=== PATIENT | female | born 1995 | race Caucasian/White ===

== ENCOUNTER 2017-05-30 16:56 | Emergency (ER) | payer MEDICAID, SELFPAY ==
[2017-05-30 18:55] VITALS: BP 144/98; PULSE 115; RESP 20; TEMP 37.3; O2SAT 99; BMI 45.6
--- NOTE | 2017-05-30 19:07 | HMH.EDUTC ---
[facility] Disposition Clinical Impression: Upper respiratory infection Qualifiers: URI type: unspecified URI Qualified Code(s): J06.9 - Acute upper respiratory infection, unspecified Disposition: Home, Self-Care Condition on Discharge: Good Instructions: DI for Cough -- Adult, DI for Fever (Symptom) -- Adult Additional Instructions: * Monitor Temp. Tylenol and/or Ibuprofen as needed. ER if fever is no less than 101 despite alternating Tylenol and Ibuprofen * Encourage fluids, water, Gatorade, powerade, pedialyte if /toddler/or child * Warm salt water gargles for throat irritation *Warm fluids *Sore throat lozenges *Sleep elevated *humidifier or vaporizer Lots of rest Increase fluids, water, Gatorade, powerade Follow up IMMEDIATELY for new or worsening of symptoms OR no noticeable improvement over the next 48-72 hours. 911 immediately for any life threatening symptoms such as chest pain or difficulty breathing Prescriptions: Azithromycin [Z-[place]rington 250mg Tab] 250 mg PO UD DOSE PK #6 tab Fluticasone Propionate [Flonase 50mcg nasal spray 16gm] 2 spr NS DAILY #1 bottle predniSONE [Prednisone 20mg Tab] 20 mg PO BID #10 tab Promethazine/Dextromethorphan [Promethazine-Dm Syrup] 5 ml PO Q4H PRN #200 syrup PRN Reason: Cough Referrals: Issac Moura [Primary Care Provider] - Time of Disposition: 19:20 Medical Decision Making - Medical Records Medical records reviewed: Yes: I reviewed the patient's medical records. Vital Signs: 05/30/17 18:55 Temperature 99.1 F Temperature Source Temporal Artery Scan Pulse Rate [Right Brachial] 115 H Respiratory Rate 20 Blood Pressure [Right Arm] 144/98 Blood Pressure Mean [Right Arm] 113 Blood Pressure Source [Right Arm] Automatic Cuff Blood Pressure Position [Right Arm] Sitting 02 Sat by Pulse Oximetry 99 Oxygen Delivery Method Room Air - Kumar Inquiry Pt receiving controlled substance: No Kumar was queried for this patient: No [facility] HPI - General Stated complaint: Cough Mode of Arrival: Ambulatory Source of Information: Patient Limitations: No Limitations Description of Symptoms (Recalled from Triage Doc. by RN): C/O COUGH, FEVER, CHILLS HEENT Symptoms (Recalled from RN notes): No Resp Symptoms (Recalled from RN notes): Yes (COUGH) Skin Symptoms (Recalled from RN notes): No MS Symptoms (Recalled from RN notes): No Functional Status (Recalled from RN notes): N/A - History of Present Illness Provider Complaint: Patient state that she has been having sinus pain and pressure along with cough and fever State that she has continued to get worse over the last couple of days State that her cough has continued to get worse State that she was worried that she may have the flu so she wanted to get checked - Related Data Previous Rx's Medication Instructions Recorded Azithromycin [Z-Carrington 250mg Tab] 250 mg PO UD DOSE PK #6 tab 05/30/17 Fluticasone Propionate [Flonase 2 spr NS DAILY #1 bottle 05/30/17 50mcg nasal spray 16gm] Promethazine/Dextromethorphan 5 ml PO Q4H PRN #200 syrup 05/30/17 [Promethazine-Dm Syrup] predniSONE [Prednisone 20mg 20 mg PO BID #10 tab 05/30/17 Tab] Allergies Allergy/AdvReac Type Severity Reaction Status Date / Time No Known Allergies Allergy Verified 05/30/17 18:58 - Worker's Comp Is this a Worker's Comp case?: No [facility] History I have reviewed the patient's past medical history: Yes Medical History: Denies:: Cancer, Diabetes Mellitus Type 1, Diabetes Mellitus Type 2, MRSA Amputation: No Fractures: No - *Social History Smoking Status: Current every day smoker Tobacco Type: cigarettes Alcohol Intake: never - Psychiatric History Expresses thoughts of harming self/others: None Suicide Plan Description: No Plan ROS Obtained: Yes All systems reviewed & no additional complaints - Constitutional Constitutional: Reports fever(s) - ENT Ears, Nose, Mouth, and Throat: Reports sinus pain - Respiratory Respirato
[2017-05-30 19:09] LABS: UTC Influenza A Antigen Negative (Negative); UTC Influenza B Antigen Negative (Negative)
--- NOTE | 2017-05-30 19:13 | ED_ITS ---
[facility] [place] Clinical Impression: Upper respiratory infection Qualifiers: URI type: unspecified URI Qualified Code(s): J06.9 - Acute upper respiratory infection, unspecified Disposition: Home, Self-Care Condition on Discharge: Good Instructions: DI for Cough -- Adult, DI for Fever (Symptom) -- Adult Additional Instructions: * Monitor Temp. Tylenol and/or Ibuprofen as needed. ER if fever is no less than 101 despite alternating Tylenol and Ibuprofen * Encourage fluids, water, Gatorade, powerade, pedialyte if /toddler/or child * Warm salt water gargles for throat irritation *Warm fluids *Sore throat lozenges *Sleep elevated *humidifier or vaporizer Lots of rest Increase fluids, water, Gatorade, powerade Follow up IMMEDIATELY for new or worsening of symptoms OR no noticeable improvement over the next 48-72 hours. 911 immediately for any life threatening symptoms such as chest pain or difficulty breathing Prescriptions: Azithromycin [Z-Carrington 250mg Tab] 250 mg PO UD DOSE PK #6 tab Fluticasone Propionate [Flonase 50mcg nasal spray 16gm] 2 spr NS DAILY #1 bottle predniSONE [Prednisone 20mg Tab] 20 mg PO BID #10 tab Promethazine/Dextromethorphan [Promethazine-Dm Syrup] 5 ml PO Q4H PRN #200 syrup PRN Reason: Cough Referrals: Isasc Moura [Primary Care Provider] - Time of Disposition: 19:20 Medical Decision Making - Medical Records Medical records reviewed: Yes: I reviewed the patient's medical records. Vital Signs: 05/30/17 18:55 Temperature 99.1 F Temperature Source Temporal Artery Scan Pulse Rate [Right Brachial] 115 H Respiratory Rate 20 Blood Pressure [Right Arm] 144/98 Blood Pressure Mean [Right Arm] 113 Blood Pressure Source [Right Arm] Automatic Cuff Blood Pressure Position [Right Arm] Sitting 02 Sat by Pulse Oximetry 99 Oxygen Delivery Method Room Air - Kumar Inquiry Pt receiving controlled substance: No Kumar was queried for this patient: No [facility] [place] - General Stated complaint: Cough Mode of Arrival: Ambulatory Source of Information: Patient Limitations: No Limitations Description of Symptoms (Recalled from Triage Doc. by RN): C/O COUGH, FEVER, CHILLS HEENT Symptoms (Recalled from RN notes): No Resp Symptoms (Recalled from RN notes): Yes (COUGH) Skin Symptoms (Recalled from RN notes): No MS Symptoms (Recalled from RN notes): No Functional Status (Recalled from RN notes): N/A - History of Present Illness Provider Complaint: Patient state that she has been having sinus pain and pressure along with cough and fever State that she has continued to get worse over the last couple of days State that her cough has continued to get worse State that she was worried that she may have the flu so she wanted to get checked - Related Data Previous Rx's Medication Instructions Recorded Azithromycin [Z-[place] 250mg Tab] 250 mg PO UD DOSE PK #6 tab 05/30/17 Fluticasone Propionate [Flonase 2 spr NS DAILY #1 bottle 05/30/17 50mcg nasal spray 16gm] Promethazine/Dextromethorphan 5 ml PO Q4H PRN #200 syrup 05/30/17 [Promethazine-Dm Syrup] predniSONE [Prednisone 20mg 20 mg PO BID #10 tab 05/30/17 Tab] Allergies Allergy/AdvReac Type Severity Reaction Status Date / Time No Known Allergies Allergy Verified 05/30/17 18:58 - Worker's Comp Is this a Worker's Comp case?: No [facility] His
== END 2017-05-30 19:29 | disposition home or self-care (01) ==
PROVIDERS: Emergency Provider Nurse Practitioner; Family Provider Family Medicine; PCP Family Medicine
DX: J06.9 Acute upper respiratory infection, unspecified (principal); F17.210 Nicotine dependence, cigarettes, uncomplicated
CPT/HCPCS: 87804; 99202

== ENCOUNTER 2017-07-04 17:22 | Emergency (ER) | payer MEDICAID, SELFPAY ==
[2017-07-04 17:32] VITALS: BP 136/78; PULSE 76; RESP 20; TEMP 36.8; O2SAT 98; BMI 45.6
--- NOTE | 2017-07-04 17:43 | HMH.EDUTC ---
[facility] [place] Disposition Clinical Impression: Skin problem Disposition: Home, Self-Care Condition on Discharge: Good Instructions: Mupirocin, Cephalexin Additional Instructions: Take medication as prescribed FOllow up with family doctor if symptoms worsen or persist Go straight to ER if you noticed redness, streaks began to run a fever or other life threatening events REturn if needed Prescriptions: cephALEXin [Keflex 500mg Cap] 500 mg PO QID #40 cap Mupirocin [Bactroban 2% Ointment 22gm tube] 1 applicatio TP BID #1 tube Referrals: Issac Moura [Primary Care Provider] - Medical Decision Making - Medical Records Medical records reviewed: Yes: I reviewed the patient's medical records. Vital Signs: 07/04/17 17:32 Temperature 98.2 F Temperature Source Temporal Artery Scan Pulse Rate [Right] 76 Respiratory Rate 20 Blood Pressure [Right Arm] 136/78 Blood Pressure Mean [Right Arm] 97 Blood Pressure Source [Right Arm] Automatic Cuff Blood Pressure Position [Right Arm] Sitting 02 Sat by Pulse Oximetry 98 Oxygen Delivery Method Room Air - Kumar Inquiry Pt receiving controlled substance: No Kumar was queried for this patient: No [facility] [place] HPI - General Stated complaint: Knot on right breast Mode of Arrival: Ambulatory Source of Information: Patient Limitations: No Limitations Description of Symptoms (Recalled from Triage Doc. by RN): STATES KNOT ON RIGHT BREAST HEENT Symptoms (Recalled from RN notes): No Resp Symptoms (Recalled from RN notes): No Skin Symptoms (Recalled from RN notes): Yes MS Symptoms (Recalled from RN notes): No Functional Status (Recalled from RN notes): N - History of Present Illness Provider Complaint: Patient state that she noticed a small raised knot like area on her right breast that later popped states that now she has a blister like area on the breast and still having some redness and tenderness in the area States that she got worried that she may have an infection in the breast so she came in to get checked out - Related Data Previous Rx's Medication Instructions Recorded Azithromycin [Z-Carrington 250mg Tab] 250 mg PO UD DOSE PK #6 tab 05/30/17 Fluticasone Propionate [Flonase 2 spr NS DAILY #1 bottle 05/30/17 50mcg nasal spray 16gm] Promethazine/Dextromethorphan 5 ml PO Q4H PRN #200 syrup 05/30/17 [Promethazine-Dm Syrup] predniSONE [Prednisone 20mg 20 mg PO BID #10 tab 05/30/17 Tab] Mupirocin [Bactroban 2% Ointment 1 applicatio TP BID #1 tube 07/04/17 22gm tube] cephALEXin [Keflex 500mg Cap] 500 mg PO QID #40 cap 07/04/17 Allergies Allergy/AdvReac Type Severity Reaction Status Date / Time No Known Allergies Allergy Verified 05/30/17 18:58 - Worker's Comp Is this a Worker's Comp case?: No H History I have reviewed the patient's past medical history: Yes Medical History: Denies:: Cancer, Diabetes Mellitus Type 1, Diabetes Mellitus Type 2, MRSA Amputation: No Fractures: No - *Social History Smoking Status: Current every day smoker Tobacco Type: cigarettes Alcohol Intake: never - Psychiatric History Expresses thoughts of harming self/others: None Suicide Plan Description: No Plan ROS Obtained: Yes All systems reviewed & no additional complaints - Integumentary/Breasts Skin/Breast: Reports redness, Reports boil, Reports sores Physical Exam - General General appearance: alert, in no apparent distress - ENT ENT exam: Present: normal exam, normal oropharynx, mucous membranes moist, TM's normal bilaterally, normal external ear exam - Chest Chest inspection: Present: other - Expanded Chest Exam Breast: right: erythema, tenderness, other (small quarter sized area that patient states started out like a pimple like area and popped now leaving a red irritated area on right breast, no streaks no warmth at this time) - Respiratory Respiratory exam: Present: normal lung sounds bilaterally. Absent: respiratory distress - Cardiovasc
--- NOTE | 2017-07-04 17:56 | ED_ITS ---
[facility] [place] Clinical Impression: Skin problem Disposition: Home, Self-Care Condition on Discharge: Good Instructions: Mupirocin, Cephalexin Additional Instructions: Take medication as prescribed FOllow up with family doctor if symptoms worsen or persist Go straight to ER if you noticed redness, streaks began to run a fever or other life threatening events REturn if needed Prescriptions: cephALEXin [Keflex 500mg Cap] 500 mg PO QID #40 cap Mupirocin [Bactroban 2% Ointment 22gm tube] 1 applicatio TP BID #1 tube Referrals: Issac Moura [Primary Care Provider] - Medical Decision Making - Medical Records Medical records reviewed: Yes: I reviewed the patient's medical records. Vital Signs: 07/04/17 17:32 Temperature 98.2 F Temperature Source Temporal Artery Scan Pulse Rate [Right] 76 Respiratory Rate 20 Blood Pressure [Right Arm] 136/78 Blood Pressure Mean [Right Arm] 97 Blood Pressure Source [Right Arm] Automatic Cuff Blood Pressure Position [Right Arm] Sitting 02 Sat by Pulse Oximetry 98 Oxygen Delivery Method Room Air - Kumar Inquiry Pt receiving controlled substance: No Kumar was queried for this patient: No [facility] [place] - General Stated complaint: Knot on right breast Mode of Arrival: Ambulatory Source of Information: Patient Limitations: No Limitations Description of Symptoms (Recalled from Triage Doc. by RN): STATES KNOT ON RIGHT BREAST HEENT Symptoms (Recalled from RN notes): No Resp Symptoms (Recalled from RN notes): No Skin Symptoms (Recalled from RN notes): Yes MS Symptoms (Recalled from RN notes): No Functional Status (Recalled from RN notes): N - History of Present Illness Provider Complaint: Patient state that she noticed a small raised knot like area on her right breast that later popped states that now she has a blister like area on the breast and still having some redness and tenderness in the area States that she got worried that she may have an infection in the breast so she came in to get checked out - Related Data Previous Rx's Medication Instructions Recorded Azithromycin [Z-[place] 250mg Tab] 250 mg PO UD DOSE PK #6 tab 05/30/17 Fluticasone Propionate [Flonase 2 spr NS DAILY #1 bottle 05/30/17 50mcg nasal spray 16gm] Promethazine/Dextromethorphan 5 ml PO Q4H PRN #200 syrup 05/30/17 [Promethazine-Dm Syrup] predniSONE [Prednisone 20mg 20 mg PO BID #10 tab 05/30/17 Tab] Mupirocin [Bactroban 2% Ointment 1 applicatio TP BID #1 tube 07/04/17 22gm tube] cephALEXin [Keflex 500mg Cap] 500 mg PO QID #40 cap 07/04/17 Allergies Allergy/AdvReac Type Severity Reaction Status Date / Time No Known Allergies Allergy Verified 05/30/17 18:58 - Worker's Comp Is this a Worker's Comp case?: No [facility] History I have reviewed the patient's past medical history: Yes Medical History: Denies:: Cancer, Diabetes Mellitus Type 1, Diabetes Mellitus Type 2, MRSA Amputation: No Fractures: No - *Social History Smoking Status: Current every day smoker Tobacco Type: cigarettes Alcohol Intake: never - Psychiatric History Expresses thoughts of harming self/others: None Suicide Plan Description: No Plan ROS Obtained: Yes All systems reviewed & no additional complaints - Integumentary/Breasts Skin/Breast: Reports redness, Re
[2017-07-04 18:21] VITALS: BP 130/70; PULSE 78; RESP 20; TEMP 36.6
== END 2017-07-04 18:22 | disposition home or self-care (01) ==
PROVIDERS: Emergency Provider Nurse Practitioner; Family Provider Family Medicine; PCP Family Medicine
DX: N63.10 Unspecified lump in the right breast, unspecified quadrant
CPT/HCPCS: 99202

== ENCOUNTER 2017-08-05 21:11 | Emergency (ER) | payer MEDICAID, SELFPAY ==
[2017-08-05 21:14] VITALS: BP 124/78; PULSE 113; RESP 18; TEMP 36.9; O2SAT 95; BMI 44.8
--- NOTE | 2017-08-05 21:27 | CT_ITS ---
CT abdomen pelvis wo con COMPARISON: CT scan abdomen pelvis 05/04/2016 HISTORY: Epigastric pain TECHNIQUE: Multiple axial scans obtained from hemidiaphragms the pelvic floor and were performed without IV or oral contrast. Sagittal and coronal reformats were evaluated as well. FINDINGS: The lower lung prater are clear. The liver spleen and pancreas appear grossly normal. The stomach is distended with ingested food particles. There has been a previous cholecystectomy. The adrenal glands are normal. The kidneys are normal in size and there are no calculi and is no obstructive uropathy. Small bowel is normal, there has been a previous appendectomy. There is moderate stool in ascending and transverse colon. There is very minimal questionable pericolonic fat stranding in the descending and sigmoid colon and a few scattered diverticuli of the sigmoid colon. There is no evidence for diverticulitis. Uterus and ovaries appear normal. Urinary bladder is partially decompressed. Is no free fluid in pelvis. IMPRESSION: Question very minimal or early colitis involving the descending colon, mild diverticulosis of sigmoid colon without diverticulitis, I basically agree with the [facility] report
[2017-08-05 21:44] LABS: Basophils # 0.1 K/mm3 (0-0.2); Basophils % 0.6 % (0.1-2.0); Eosinophils # 0.8 K/mm3 (0.0-0.4); Eosinophils % 5.6 % (0.1-12.0); Hematocrit 44.6 % (37.0-47.0); Hemoglobin 14.9 g/dL (12.2-16.2); Lymphocytes # 4.8 K/mm3 (0.7-4.5); Lymphocytes % 35.1 K/mm3 (10-50); Mean Corpuscular HGB Conc 33.4 g/dL (31.8-35.4); Mean Corpuscular Hemoglobin 27.9 pg (27.0-31.2); Mean Corpuscular Volume 83.6 fl (81-99); Mean Platelet Volume 7.2 fl (7.4-10.4); Monocytes # 0.7 K/mm3 (0.1-1.0); Monocytes % 5.3 % (1.7-9.3); Neutrophils # 7.2 K/mm3 (1.8-7.8); Neutrophils % 53.3 % (37.0-80.0); Platelet Count 444 K/mm3 (142-424); Red Blood Count 5.33 M/mm3 (4.20-5.40); Red Cell Distribution Width 12.5 % (11.5-17.5); White Blood Count 13.6 K/mm3 (4.8-10.8)
[2017-08-05 21:59] LABS: Alanine Aminotransferase 27 U/L (12-78); Albumin Level 3.5 gm/dL (3.4-5.0); Albumin/Globulin Ratio 0.9 (1.1-1.8); Alkaline Phosphatase 86 U/L (46-116); Amylase 51 U/L (25-125); Anion Gap 12.9 mEq/L (5-15); Aspartate Amino Transferase 15 U/L (15-37); Bilirubin,Total 0.1 mg/dL (0.2-1.0); Blood Urea Nitrogen 11 mg/dL (7-18); Calcium 9.1 mg/dL (8.5-10.1); Carbon Dioxide 28 mmol/L (21.0-32.0); Chloride 105 mmol/L (98-107); Creatinine Clearance Estimated 86 mL/min (0-300); Creatinine,Serum 1.04 mg/dL (0.55-1.02); Estimated Glomerular Filt Rate 67 ml/min (>60); GFR (African American) 81 ML/MIN (>60); Globulin 4.1 gm/dl (1.3-3.2); Glucose 95 mg/dL (74-106); Lipase 226 u/L (73-393); Potassium 3.9 mmoL/L (3.5-5.1); Sodium 142 mmol/L (136-145); Total Protein,Serum 7.6 gm/dL (6.4-8.2)
--- NOTE | 2017-08-05 22:11 | HMH.EDABDPAI ---
ED Disposition Clinical Impression: Colitis Disposition: Home, Self-Care Condition on Discharge: Good Instructions: DI for Colitis Additional Instructions: Please take the 2 antibiotics prescribed as directed, follow-up with Dr. Todd Atkins within 2-4 weeks for additional outpatient workup, to include a colonoscopy. Prescriptions: Ciprofloxacin HCl [Ciprofloxacin 500mg Tab] 500 mg PO BID #20 tab metroNIDAZOLE [Flagyl] 500 mg PO TID #30 tab Referrals: Issac Moura [Primary Care Provider] - Todd Atkins MD [Staff Physician] - Time of Disposition: 00:14 - Critical Care Critical Care Time: No Attestation: On 08/05/17, the high probability of a clinically significant, sudden or life threatening deterioration of the following system(s) required my full and direct attention, intervention and personal management. The time I documented below is in addition to time spent performing reported procedures but includes the following listed in this critical care notation. Medical Decision Making - Medical Records Medical records reviewed: Yes: I reviewed the patient's medical records. - Kumar Inquiry Pt receiving controlled substance: No Vital Signs: 08/05/17 21:14 08/05/17 23:38 08/06/17 00:38 Temperature 98.5 F 98.7 F Temperature Source Oral Oral Pulse Rate 90 Pulse Rate [Right Brachial] 113 H 74 Respiratory Rate 18 14 14 Blood Pressure 142/86 Blood Pressure [Right Arm] 124/78 92/54 Blood Pressure Mean [Right Arm] 93 66 Blood Pressure Source [Right Arm] Automatic Cuff Automatic Cuff Blood Pressure Position [Right Arm] Sitting Sitting 02 Sat by Pulse Oximetry 95 98 Oxygen Delivery Method Nasal Cannula Room Air Room Air - Lab Data Lab results reviewed: Yes: I reviewed the patient's lab results. Lab Results 08/05/17 21:30: WBC 13.6 H, RBC 5.33, Hgb 14.9, Hct 44.6, MCV 83.6, MCH 27.9, MCHC 33.4, RDW 12.5, Plt Count 444 H, MPV 7.2 L, Neut % (Auto) 53.3, Lymph % (Auto) 35.1, [place] % (Auto) 5.3, Eos % (Auto) 5.6, Baso % (Auto) 0.6, Neut # (Auto) 7.2, Lymph # (Auto) 4.8 H, [place] # (Auto) 0.7, Eos # (Auto) 0.8 H, Baso # (Auto) 0.1 08/05/17 21:30: Sodium 142, Potassium 3.9, Chloride 105, Carbon Dioxide 28, Anion Gap 12.9, BUN 11, Creatinine 1.04 H, Estimated Creat Clear 86, Estimated GFR 67, Est GFR ( Amer) 81, Glucose 95, Calcium 9.1, Total Bilirubin 0.1 L, AST 15, ALT 27, Alkaline Phosphatase 86, Total Protein 7.6, Albumin 3.5, Globulin 4.1 H, Albumin/Globulin Ratio 0.9 L, Amylase 51, Lipase 226 08/05/17 22:15: Urine Color Yellow, Urine Appearance Sl cloudy, Urine pH 6.5, Ur Specific [place] 1.025, Urine Protein Negative, Urine Glucose (UA) Negative, Urine Ketones Trace, Urine Blood Negative, Urine Nitrate Negative, Urine Bilirubin Negative, Urine Urobilinogen 0.2, Ur Leukocyte Esterase Negative, Ur Squamous Epith Cells 10-20, Amorphous Sediment 3+, Urine Mucus 1+ 08/05/17 22:15: Urine HCG, Qual Negative Result diagrams: 08/05/17 21:30 08/05/17 21:30 Orders (Tests/Meds): ED MEDICATIONS Discontinued Medications Generic Name Dose Route Start Last Admin Trade Name Yamila PRN Reason Stop Dose Admin Sodium Chloride 1,000 mls @ 999 mls/hr 08/05/17 21:45 08/05/17 21:41 Sod Chlor 0.9% 1000ml Bag IV 08/05/17 22:45 999 mls/hr .Q1H1M QUINN Administration Ketorolac Tromethamine 30 mg 08/05/17 21:26 08/05/17 21:39 Toradol 30mg/Ml Vial IV 08/05/17 21:27 30 mg ONCE ONE Administration Levofloxacin 750 mg 08/06/17 00:21 08/06/17 00:29 Levaquin 750mg Tablet PO 08/06/17 00:22 750 mg ONCE ONE Administration Protocol Metronidazole 500 mg 08/06/17 00:21 08/06/17 00:29 Metronidazole 500mg Tablet PO 08/06/17 00:22 500 mg ONCE ONE Administration Protocol Ondansetron HCl 4 mg 08/05/17 21:26 08/05/17 21:39 Zofran 4mg/2ml Vial IV 08/05/17 21:27 4 mg ONCE ONE Administration ORDERS Category Date Time Status CT abdomen pelvis wo con Stat
[2017-08-05 22:18] LABS: Microscopic, Urine URINE MICROSCOPIC (MICROSCOPIC)
--- NOTE | 2017-08-05 22:22 | ED_ITS ---
ED Disposition Clinical Impression: Colitis Disposition: Home, Self-Care Condition on Discharge: Good Instructions: DI for Colitis Additional Instructions: Please take the 2 antibiotics prescribed as directed, follow-up with Dr. Todd Atkins within 2-4 weeks for additional outpatient workup, to include a colonoscopy. Prescriptions: Ciprofloxacin HCl [Ciprofloxacin 500mg Tab] 500 mg PO BID #20 tab metroNIDAZOLE [Flagyl] 500 mg PO TID #30 tab Referrals: Issac Moura [Primary Care Provider] - Todd Atkins MD [Staff Physician] - Time of Disposition: 00:14 - Critical Care Critical Care Time: No Attestation: On 08/05/17, the high probability of a clinically significant, sudden or life threatening deterioration of the following system(s) required my full and direct attention, intervention and personal management. The time I documented below is in addition to time spent performing reported procedures but includes the following listed in this critical care notation. Medical Decision Making - Medical Records Medical records reviewed: Yes: I reviewed the patient's medical records. - Kumar Inquiry Pt receiving controlled substance: No Vital Signs: 08/05/17 21:14 08/05/17 23:38 08/06/17 00:38 Temperature 98.5 F 98.7 F Temperature Source Oral Oral Pulse Rate 90 Pulse Rate [Right Brachial] 113 H 74 Respiratory Rate 18 14 14 Blood Pressure 142/86 Blood Pressure [Right Arm] 124/78 92/54 Blood Pressure Mean [Right Arm] 93 66 Blood Pressure Source [Right Arm] Automatic Cuff Automatic Cuff Blood Pressure Position [Right Arm] Sitting Sitting 02 Sat by Pulse Oximetry 95 98 Oxygen Delivery Method Nasal Cannula Room Air Room Air - Lab Data Lab results reviewed: Yes: I reviewed the patient's lab results. Lab Results 08/05/17 21:30: WBC 13.6 H, RBC 5.33, Hgb 14.9, Hct 44.6, MCV 83.6, MCH 27.9, MCHC 33.4, RDW 12.5, Plt Count 444 H, MPV 7.2 L, Neut % (Auto) 53.3, Lymph % ( Auto) 35.1, [place] % (Auto) 5.3, Eos % (Auto) 5.6, Baso % (Auto) 0.6, Neut # (Auto ) 7.2, Lymph # (Auto) 4.8 H, [place] # (Auto) 0.7, Eos # (Auto) 0.8 H, Baso # (Auto ) 0.1 08/05/17 21:30: Sodium 142, Potassium 3.9, Chloride 105, Carbon Dioxide 28, Anion Gap 12.9, BUN 11, Creatinine 1.04 H, Estimated Creat Clear 86, Estimated GFR 67, Est GFR ( Amer) 81, Glucose 95, Calcium 9.1, Total Bilirubin 0.1 L, AST 15, ALT 27, Alkaline Phosphatase 86, Total Protein 7.6, Albumin 3.5, Globulin 4.1 H, Albumin/Globulin Ratio 0.9 L, Amylase 51, Lipase 226 08/05/17 22:15: Urine Color Yellow, Urine Appearance Sl cloudy, Urine pH 6.5, Ur Specific [place] 1.025, Urine Protein Negative, Urine Glucose (UA) Negative, Urine Ketones Trace, Urine Blood Negative, Urine Nitrate Negative, Urine Bilirubin Negative, Urine Urobilinogen 0.2, Ur Leukocyte Esterase Negative, Ur Squamous Epith Cells 10-20, Amorphous Sediment 3+, Urine Mucus 1+ 08/05/17 22:15: Urine HCG, Qual Negative Result diagrams: 08/05/17 21:30 08/05/17 21:30 Orders (Tests/Meds): ED MEDICATIONS Discontinued Medications Generic Name Dose Route Start Last Admin Trade Name Freq PRN Reason Stop Dose Admin Sodium Chloride 1,000 mls @ 999 mls/hr 08/05/17 21:45 08/05/17 21:41 Sod Chlor 0.9% 1000ml Bag IV 08/05/17 22:45 999 mls/hr .Q1H1M QUINN Administration Ketorolac Tromethamine 30 mg 08/05/17 21:26 08/05/17 21:39 Toradol 30mg/Ml Vial IV
[2017-08-05 22:26] LABS: Appearance,Urine SL CLOUDY (Clear); Bilirubin,Urine Negative (Negative); Blood, Urine Negative (Negative); Color,Urine YELLOW (Yellow); Glucose,Urine (UA) Negative (Negative); Ketones,Urine TRACE (Negative); Leukocyte Esterase,Urine Negative (Negative); Nitrate,Urine Negative (Negative); PH,Urine 6.5 (5.0-8.5); Protein,Urine Negative (Negative); Specific Gravity, Urine 1.025 (1.005-1.030); Urobilinogen,Urine 0.2 EU/dl (0.2)
[2017-08-05 22:27] LABS: Urine Pregnancy, HCG Qual. Negative (Negative)
[2017-08-05 22:29] LABS: Amorphous Sediment,Urine 3+ /lpf; Mucus,Urine 1+ /lpf
[2017-08-05 23:38] VITALS: BP 92/54; PULSE 74; RESP 14; O2SAT 98
[2017-08-06 00:38] VITALS: BP 142/86; PULSE 90; RESP 14; TEMP 37.1; O2SAT 97
== END 2017-08-06 00:30 | disposition home or self-care (01) ==
PROVIDERS: Emergency Provider Emergency Medicine; Family Provider Family Medicine; PCP Family Medicine
DX: K52.9 Noninfective gastroenteritis and colitis, unspecified (principal); R10.13 Epigastric pain
CPT/HCPCS: 74176; 80053; 81001; 81025; 82150; 83690; 85025; 96374; 99283; J2405

== ENCOUNTER 2017-08-24 23:04 | Emergency (ER) | payer MEDICAID, SELFPAY ==
[2017-08-24 23:11] VITALS: BP 102/61; PULSE 94; RESP 18; TEMP 36.9; O2SAT 98; BMI 42.5
--- NOTE | 2017-08-24 23:19 | XR_ITS ---
XR ankle LT min 3V COMPARISON: HISTORY: Left ankle pain after a TECHNIQUE: AP lateral and oblique views FINDINGS: There is no fracture or dislocation. Ankle mortise appears normal. Is minor soft tissue swelling laterally. IMPRESSION: Minor soft tissue injury, left ankle negative for fracture
--- NOTE | 2017-08-24 23:23 | HMH.EDLOEX ---
ED Disposition Clinical Impression: Ankle sprain and strain Disposition: Home, Self-Care Condition on Discharge: Good Instructions: Sprain Additional Instructions: wt bearing as rob and use otc meds as needed Referrals: Issac Moura [Primary Care Provider] - - Critical Care Critical Care Time: No Attestation: On 08/24/17, the high probability of a clinically significant, sudden or life threatening deterioration of the following system(s) required my full and direct attention, intervention and personal management. The time I documented below is in addition to time spent performing reported procedures but includes the following listed in this critical care notation. Medical Decision Making - Medical Records Medical records reviewed: Yes: I reviewed the patient's medical records. - Kumar Inquiry Pt receiving controlled substance: No Vital Signs: 08/24/17 23:11 Temperature 98.4 F Temperature Source Oral Pulse Rate [Right Radial] 94 H Respiratory Rate 18 Blood Pressure [Right Arm] 102/61 Blood Pressure Mean [Right Arm] 74 Blood Pressure Source [Right Arm] Automatic Cuff Blood Pressure Position [Right Arm] Sitting 02 Sat by Pulse Oximetry 98 Oxygen Delivery Method Room Air - Lab Data Lab Results 08/24/17 23:20: Urine HCG, Qual Negative Orders (Tests/Meds): ORDERS Category Date Time Status Ankle XR - Left minimum 3 Views [XR ankle LT min 3V] Exams 08/24/17 23:19 Taken Stat - Radiology Data #1 Image(s): Ankle Image Reviewed: Yes I reviewed the patient's radiology image Preliminary Findings: No Fracture Seen Lower Extremity Injury HPI - General Chief Complaint: Extremity Injury, Lower Stated Complaint: injured left ankle roller skating Time Seen by Provider: 08/24/17 23:24 Mode of Arrival: Ambulatory Source of Information: Patient, Significant Other, Medical Record Limitations: No Limitations Description of Symptoms (Recalled from ER Triage Doc. by RN): Pt reports she was roller skating and she fell and hurt her left ankle - History of Present Illness HPI Narrative: acute lt ankle injury sec to roller skating complaint: ankle injury Onset (ago): hour(s) Injury: Left: ankle Type of Injury: eversion Place: other (skating) Severity: moderate - Related Data Home Medications Medication Instructions Recorded Confirmed No Known Home Medications [No 08/24/17 08/24/17 Known Home Medications] Allergies Allergy/AdvReac Type Severity Reaction Status Date / Time No Known Allergies Allergy Verified 05/30/17 18:58 [facility] History I have reviewed the patient's past medical history: Yes Medical History: Denies:: Cancer, Diabetes Mellitus Type 1, Diabetes Mellitus Type 2, MRSA Amputation: No Fractures: No - Social History Smoking Status: Current every day smoker Tobacco Type: cigarettes Alcohol Intake: never - Psychiatric History Expresses thoughts of harming self/others: None Suicide Plan Description: No Plan ROS Obtained: Yes All systems reviewed & no additional complaints - Constitutional Constitutional: Denies fever(s) - Eyes Eyes: Denies change in vision - ENT Ears, Nose, Mouth, and Throat: Denies sore throat - Cardiovascular Cardiovascular: Denies chest pain - Respiratory Respiratory: No cough - Gastrointestinal Gastrointestingal: Denies: vomiting - Genitourinary Female Genitourinary: Denies flank pain - Musculoskeletal Musculoskeletal: Reports as per HPI, Reports joint pain, Reports joint swelling - Integumentary/Breasts Skin/Breast: Denies rash - Neurologic Neurologic: Denies seizure-like activity Physical Exam - General General appearance: in no apparent distress - Head Head exam: normocephalic - Eye Eye exam: Present: PERRL, EOMI - ENT ENT exam: Present: mucous membranes moist - Neck Neck exam: Present: trachea midline - Respiratory Respiratory exam: Absent: respiratory distress
--- NOTE | 2017-08-24 23:27 | ED_ITS ---
ED Disposition Clinical Impression: Ankle sprain and strain Disposition: Home, Self-Care Condition on Discharge: Good Instructions: Sprain Additional Instructions: wt bearing as rob and use otc meds as needed Referrals: Issac Moura [Primary Care Provider] - - Critical Care Critical Care Time: No Attestation: On 08/24/17, the high probability of a clinically significant, sudden or life threatening deterioration of the following system(s) required my full and direct attention, intervention and personal management. The time I documented below is in addition to time spent performing reported procedures but includes the following listed in this critical care notation. Medical Decision Making - Medical Records Medical records reviewed: Yes: I reviewed the patient's medical records. - Kumar Inquiry Pt receiving controlled substance: No Vital Signs: 08/24/17 23:11 Temperature 98.4 F Temperature Source Oral Pulse Rate [Right Radial] 94 H Respiratory Rate 18 Blood Pressure [Right Arm] 102/61 Blood Pressure Mean [Right Arm] 74 Blood Pressure Source [Right Arm] Automatic Cuff Blood Pressure Position [Right Arm] Sitting 02 Sat by Pulse Oximetry 98 Oxygen Delivery Method Room Air - Lab Data Lab Results 08/24/17 23:20: Urine HCG, Qual Negative Orders (Tests/Meds): ORDERS Category Date Time Status Ankle XR - Left minimum 3 Views [XR ankle LT min 3V] Exams 08/24/17 23:19 Taken Stat - Radiology Data #1 Image(s): Ankle Image Reviewed: Yes I reviewed the patient's radiology image Preliminary Findings: No Fracture Seen Lower Extremity Injury HPI - General Chief Complaint: Extremity Injury, Lower Stated Complaint: injured left ankle roller skating Time Seen by Provider: 08/24/17 23:24 Mode of Arrival: Ambulatory Source of Information: Patient, Significant Other, Medical Record Limitations: No Limitations Description of Symptoms (Recalled from ER Triage Doc. by RN): Pt reports she was roller skating and she fell and hurt her left ankle - History of Present Illness HPI Narrative: acute lt ankle injury sec to roller skating complaint: ankle injury Onset (ago): hour(s) Injury: Left: ankle Type of Injury: eversion Place: other (skating) Severity: moderate - Related Data Home Medications Medication Instructions Recorded Confirmed No Known Home Medications [No 08/24/17 08/24/17 Known Home Medications] Allergies Allergy/AdvReac Type Severity Reaction Status Date / Time No Known Allergies Allergy Verified 05/30/17 18:58 [facility] History I have reviewed the patient's past medical history: Yes Medical History: Denies:: Cancer, Diabetes Mellitus Type 1, Diabetes Mellitus Type 2, MRSA Amputation: No Fractures: No - Social History Smoking Status: Current every day smoker Tobacco Type: cigarettes Alcohol Intake: never - Psychiatric History Expresses thoughts of harming self/others: None Suicide Plan Description: No Plan ROS Obtained: Yes All systems reviewed & no additional complaints - Constitutional Constitutional: Denies fever(s) - Eyes Eyes: Denies change in vision - ENT Ears, Nose, Mouth, and Throat: Denies sore throat - Cardiovascular
[2017-08-24 23:34] LABS: Urine Pregnancy, HCG Qual. Negative (Negative)
[2017-08-24 23:55] VITALS: BP 108/60; PULSE 90; RESP 16; TEMP 36.9; O2SAT 99
== END 2017-08-24 23:55 | disposition home or self-care (01) ==
PROVIDERS: Emergency Provider Emergency Medicine; Family Provider Family Medicine; PCP Family Medicine
DX: S93.402A Sprain of unspecified ligament of left ankle, initial encounter (principal); V00.128A Other non-in-line roller-skating accident, initial encounter; Y93.51 Activity, roller skating (inline) and skateboarding; Y92.838 Other recreation area as the place of occurrence of the external cause; F17.210 Nicotine dependence, cigarettes, uncomplicated
CPT/HCPCS: 29515; 73610; 81025; 99283

== ENCOUNTER 2020-03-06 21:15 | Emergency (ER) | payer MEDICAID, SELFPAY ==
[2020-03-06 21:17] VITALS: BMI 54.6
--- NOTE | 2020-03-06 21:27 | XR_ITS ---
PROCEDURE: XR ANKLE RT MIN 3V CLINICAL INDICATION: twisted stepping off a step Pain following injury COMPARISON: CR ANKCMLT XR ankle LT min 3V from 08/24/2017 FINDINGS: No acute fracture or dislocation evident. A well-circumscribed lucency is present transverse in nature involving the lateral malleolus consistent with an ununited ossification center or an old ununited fracture. A faint calcific density is also present at the tip of the medial malleolus which could also be due to an old avulsion injury or ununited ossification center. IMPRESSION: No acute finding. Please see above for detail. Dictated by: Lorenzo Caruso MD 03/07/2020 06:51 Lorenzo Caruso MD in [place] 03/07/2020 06:51
[2020-03-06 21:32] VITALS: BP 132/88; PULSE 88; RESP 16; TEMP 36.8; O2SAT 98; BMI 54.6
--- NOTE | 2020-03-06 21:34 | XR_ITS ---
PROCEDURE: XR FOOT RT MIN 3V CLINICAL INDICATION: pain COMPARISON: No exams were available for comparison FINDINGS: No fracture or dislocation. No lytic or blastic change. There is normal mineralization. The joint spaces are well-preserved. No significant degenerative/arthritic changes. No erosive changes evident. Other findings:There is a thin metallic density within the soft tissues along the lateral and proximal aspect of the distal phalanx of the great toe consistent with a broken off needle. IMPRESSION: Metallic foreign body at the great toe otherwise negative Dictated by: Lorenzo Caruso MD 03/07/2020 06:49 Lorenzo Caruso MD in [place] 03/07/2020 06:49
--- NOTE | 2020-03-06 22:22 | HMH.EDGENADL ---
ED Disposition Clinical Impression: Ankle fracture Qualifiers: Encounter type: initial encounter Fracture type: closed Laterality: right Qualified Code(s): S82.891A - Other fracture of right lower leg, initial encounter for closed fracture Disposition: Home, Self-Care Condition on Discharge: Good Instructions: Ankle Fracture Additional Instructions: follow up with orthopedic surgery for further work-up. Referrals: Issac Moura [Primary Care Provider] - - Critical Care Critical Care Time: No Attestation: On 03/06/20, the high probability of a clinically significant, sudden or life threatening deterioration of the following system(s) required my full and direct attention, intervention and personal management. The time I documented below is in addition to time spent performing reported procedures but includes the following listed in this critical care notation. Medical Decision Making - Kumar Inquiry Pt receiving controlled substance: No Vital Signs: 03/06/20 21:32 Temperature 98.3 F Temperature Source Oral Pulse Rate [Right] 88 Respiratory Rate 16 Blood Pressure [Right Arm] 132/88 Blood Pressure Mean [Right Arm] 102 Blood Pressure Source [Right Arm] Automatic Cuff Blood Pressure Position [Right Arm] Sitting 02 Sat by Pulse Oximetry 98 Oxygen Delivery Method Room Air Orders (Tests/Meds): ORDERS Category Date Time Status Ankle XR -Right minimum 3 Views [XR ankle RT min 3V] Exams 03/06/20 21:27 Taken Stat Foot XR right minimum 3 views [XR foot RT min 3V] Stat Exams 03/06/20 21:34 Taken General Adult HPI - General Chief complaint: Extremity Injury, Lower Stated complaint: AO 03/06@21:00Fell Twisted L Ankle Time Seen by Provider: 03/06/20 22:00 Mode of Arrival: Wheelchair Limitations: No Limitations Description of Symptoms (Recalled from ER Triage Doc. by RN): Pt states she stepped off a step and twisted ankle. - History of Present Illness HPI narrative: 25-year-old female presenting for ankle injury. Patient stepped off the porch letter friend's house, rolled her ankle, fell, no loss of consciousness, no head trauma. Patient has pain isolated to her right ankle, both medial and lateral malleolus. Patient unable to bear weight. No history of fractures previously, no other medical problems, surgical history. - Related Data Previous Rx's Medication Instructions Recorded predniSONE [Prednisone 5mg Tab 5 mg PO UD DOSE PK #21 pack 06/19/18 Dose-Pack] Allergies Allergy/AdvReac Type Severity Reaction Status Date / Time No Known Allergies Allergy Verified 06/21/18 13:59 [facility] History - Hepatitis A Screen Drug use history?: No High risk sexual behaviors?: No History of sexually transmitted infection?: No Currently employed?: No Childcare worker?: No Do you have indoor plumbing?: Yes Do you have electricity?: Yes Attestation statement:: This patient has been screened for Hepatitis A risk factors. I have reviewed the patient's past medical history: Yes Medical History: Denies:: Cancer, Diabetes Mellitus Type 1, Diabetes Mellitus Type 2, MRSA Amputation: No Fractures: No - Social History Smoking Status: Current every day smoker Tobacco Type: cigarettes # Packs/Day (cigarettes): 1 Alcohol Intake: never Occupational Status: unemployed ROS Obtained: Yes All systems reviewed & no additional complaints Physical Exam - General General appearance: alert, in no apparent distress - Chest Chest inspection: Present: normal inspection, symmetric chest wall rise. Absent: tenderness - Respiratory Respiratory exam: Present: normal lung sounds bilaterally. Absent: respiratory distress - Cardiovascular Cardiovascular exam: Present: regular rate, normal rhythm. Absent: JVD - Extremities Exam Extremities exam: Present: other (tender topalpation medial and lateral malleolus, tender fifth meta tarsal or Lisfranc joint. no lacerations, no joint swelling) - Ba
--- NOTE | 2020-03-06 22:32 | PC.NURSE ---
Pt not able to use crutches, states she has an electric scooter at home
[2020-03-06 22:59] VITALS: BP 135/79; PULSE 85; RESP 15; TEMP 36.8; O2SAT 99
== END 2020-03-06 23:04 | disposition home or self-care (01) ==
PROVIDERS: Emergency Provider Emergency Medicine; PCP Family Medicine
DX: S82.891A Other fracture of right lower leg, initial encounter for closed fracture (principal); X50.1XXA Overexertion from prolonged static or awkward postures, initial encounter; Y92.89 Other specified places as the place of occurrence of the external cause; F17.210 Nicotine dependence, cigarettes, uncomplicated
CPT/HCPCS: 73610; 73630; 99283

== ENCOUNTER → 2020-04-05 15:47 | Outpatient (CLI) | payer MEDICAID, SELFPAY ==
--- NOTE | 2020-04-05 15:51 | XR_ITS ---
PROCEDURE: XR ANKLE WT BEARING RT MIN 3V CLINICAL INDICATION: fracture follow up COMPARISON: CR ANKCMLT XR ankle LT min 3V from 08/24/2017 CR XR ANKLE RT MIN 3V from 03/06/2020 FINDINGS: Old fracture versus accessory center of ossification at the lateral malleolar region once again noted. No acute fracture or other significant anomaly. IMPRESSION: No acute findings. Dictated by: Lorenzo Caruso MD 04/05/2020 16:17 Lorenzo Caruso MD in [place] 04/05/2020 16:17
--- NOTE | 2020-04-05 15:51 | XR_ITS ---
PROCEDURE: XR FOOT WT BEARING RT 3V CLINICAL INDICATION: fracture follow up Follow-up fracture COMPARISON: CR XR FOOT RT MIN 3V from 03/06/2020 FINDINGS: No obvious fracture or dislocation. The joint spaces are well-preserved. No significant degenerative/arthritic changes. No erosive changes evident. Other findings:Metallic foreign body once again noted at the great toe. IMPRESSION: No acute findings. Dictated by: Lorenzo Caruso MD 04/05/2020 16:16 Lorenzo Caruso MD in [place] 04/05/2020 16:16
== END ==
PROVIDERS: PCP Family Medicine; Visit Provider Podiatrist
DX: S82.54XK Nondisplaced fracture of medial malleolus of right tibia, subsequent encounter for closed fracture with nonunion (principal); S82.64XK Nondisplaced fracture of lateral malleolus of right fibula, subsequent encounter for closed fracture with nonunion; S93.401A Sprain of unspecified ligament of right ankle, initial encounter
CPT/HCPCS: 73610; 73630

== ENCOUNTER 2020-05-11 14:25 | Emergency (ER) | payer MEDICAID, SELFPAY ==
[2020-05-11 15:05] VITALS: BP 140/96; PULSE 89; RESP 19; TEMP 37; O2SAT 98; BMI 52.5
[2020-05-11 15:12] LABS: Apearance,Urine Cloudy (Clear); Bilirubin,Urine Negative (Negative); Blood, Urine 3+ (Negative); Color,Urine Yellow (Yellow); Glucose,Urine (UA) Negative (Negative); Ketones,Urine Negative (Negative); PH,Urine 5.5 (5.0-8.5); Protein,Urine 1+ (Negative); Specific Gravity, Urine 1.025 (1.005-1.030); UTC Leukocyte Esterase,Urine 2+ (Negative); UTC Nitrate,Urine Negative (Negative); Urobilinogen,Urine 0.2 EU/dl (0.2)
--- NOTE | 2020-05-11 15:25 | HMH.EDUTC ---
[facility] [place] Clinical Impression: UTI (urinary tract infection) Qualifiers: Urinary tract infection type: site unspecified Hematuria presence: with hematuria Qualified Code(s): N39.0 - Urinary tract infection, site not specified Disposition: Home, Self-Care Condition on Discharge: Good Instructions: Trimethoprim/Sulfamethoxazole (Alternative Therapy), Urinary Tract Infection, DI for Urinary Tract Infection (UTI), Phenazopyridine Additional Instructions: *Increase fluids. Water not Soda or Tea *Start antibiotic immediately and be sure to take as ordered for the FULL length of time although you should start to see improvement over the next 48 hours *Pyridium as needed Remember this medication will turn your urine [place]. This is normal but it will stain what ever it gets on *You should not use Pyridium for more than 48 hours. If so , follow up with your primary physician to review urine culture and ensure that antibiotic is adequate for infection *Be SURE to follow up anytime for new or worsening symptoms with your family doctor. AND in 48 hours for urine culture results with your family doctor, if you do not have a doctor then you may call back to the [facility] for urine culture results and further treatment. We do recommend that you choose and establish care with a Primary Care Physician. AND follow up with them in 10-14 days to repeat UA to ensure infection is resolved and blood no longer present *Be sure to let your PCP know that we sent urine cultures from the [facility] so they can follow up to ensure that you area the on the correct antibiotic Call your doctor office and make appointment for 48 hours (2 days from today) to follow up and get the results of your urine culture and further treatment Prescriptions: Sulfamethoxazole/Trimethoprim [Bactrim DS tablet] 1 each PO BID 10 Days #20 tab Transmission Status: Received by [facility] #[id number] Phenazopyridine HCl [Pyridium 200mg Tablet] 200 pow PO TID #6 tab Transmission Status: Received by [facility] #[id number] Referrals: Issac Moura [Primary Care Provider] - As needed Time of Disposition: 16:12 Medical Decision Making - Kumar Inquiry Pt receiving controlled substance: No Kumar was queried for this patient: No Vital Signs: 05/11/20 15:05 05/11/20 16:07 Temperature 98.6 F 98.6 F Temperature Source Oral Pulse Rate 89 Pulse Rate [Right Brachial] 89 Respiratory Rate 19 19 Blood Pressure 140/96 H Blood Pressure [Right Arm] 140/96 H Blood Pressure Mean [Right Arm] 110 Blood Pressure Source [Right Arm] Automatic Cuff Blood Pressure Position [Right Arm] Sitting 02 Sat by Pulse Oximetry 98 Oxygen Delivery Method Room Air - Lab Data Lab results reviewed: Yes: I reviewed the patient's lab results. Lab Results 05/11/20 15:03: Urine Color Yellow, Urine Appearance Cloudy, Urine pH 5.5, Ur Specific Earth 1.025, Urine Protein 1+, Urine Glucose (UA) Negative, Urine Ketones Negative, Urine Blood 3+, Urine Nitrate Negative, Urine Bilirubin Negative, Urine Urobilinogen 0.2, Ur Leukocyte Esterase 2+ A Orders (Tests/Meds): ED MEDICATIONS Discontinued Medications Generic Name Dose Route Start Last Admin Trade Name Freq PRN Reason Stop Dose Admin Ceftriaxone Sodium 1 gm 05/11/20 15:39 05/11/20 16:00 Ceftriaxone 1gm Vial IM 05/11/20 15:40 1 gm ONCE ONE Administration Protocol Lidocaine HCl 0 ml 05/11/20 15:39 05/11/20 16:00 Lidocaine 1% 5ml Pf Vial IM 05/11/20 15:40 2.1 ml ONCE ONE Administration ORDERS Category Date Time Status Urine Culture Stat Micro 05/11/20 15:00 Received Medical Decision Narrative: Patient state that she has taken Cephosporins and bactrim before without complications or reactions [facility] [place] - General Stated complaint: sharp pains when urinating Time Seen by Provider: 05/11/20 15:26 Mode of Arrival: Ambulatory Source of Information: Patient Limitations: No Limitations Descrip
--- NOTE | 2020-05-11 15:55 | PC.NURSE ---
PATIENT DENIES AT THIS TIME
[2020-05-11 16:07] VITALS: BP 140/96; PULSE 89; RESP 19; TEMP 37; O2SAT 98
== END 2020-05-11 16:10 | disposition home or self-care (01) ==
PROVIDERS: Emergency Provider Nurse Practitioner; PCP Family Medicine
DX: N30.01 Acute cystitis with hematuria (principal); F17.210 Nicotine dependence, cigarettes, uncomplicated
CPT/HCPCS: 81003; 87086; 87088; 87186; 96372; 99201

== ENCOUNTER 2020-08-17 01:04 | Emergency (ER) | payer MEDICAID, SELFPAY ==
[2020-08-17 01:07] VITALS: BP 145/87; PULSE 98; RESP 14; TEMP 36.9; O2SAT 97; BMI 54.7
--- NOTE | 2020-08-17 01:19 | XR_ITS ---
PROCEDURE: XR ANKLE LT MIN 3V CLINICAL INDICATION: fall COMPARISON: CR ANKCMLT XR ankle LT min 3V from 08/24/2017 CR XR ANKLE RT MIN 3V from 03/06/2020 CR XR ANKLE WT BEARING RT MIN 3V from 04/05/2020 FINDINGS: No acute fractures or dislocations. Bone density is normal. The ankle mortise is congruent on the lateral clear space is preserved. No significant soft tissue abnormality. IMPRESSION: No acute findings. Dictated by: Jessica Isaac 08/17/2020 08:48 Jessica Isaac in [place] 08/17/2020 08:48
--- NOTE | 2020-08-17 01:38 | PC.NURSE ---
pt returned from xr
--- NOTE | 2020-08-17 01:39 | HMH.EDLOEX ---
ED Disposition Clinical Impression: Left ankle sprain Qualifiers: Encounter type: initial encounter Involved ligament of ankle: unspecified ligament Qualified Code(s): S93.402A - Sprain of unspecified ligament of left ankle, initial encounter Disposition: Home, Self-Care Condition on Discharge: Good Instructions: DI for Ankle Sprain Additional Instructions: ice and call pcp and podietry in am Referrals: PCP,No [Primary Care Provider] - Lina Mcpherson DPM [Staff Physician] - - Critical Care Critical Care Time: No Attestation: On 08/17/20, the high probability of a clinically significant, sudden or life threatening deterioration of the following system(s) required my full and direct attention, intervention and personal management. The time I documented below is in addition to time spent performing reported procedures but includes the following listed in this critical care notation. Medical Decision Making - Medical Records Medical records reviewed: Yes: I reviewed the patient's medical records. - Kumar Inquiry Pt receiving controlled substance: No Vital Signs: 08/17/20 01:07 Temperature 98.5 F Temperature Source Oral Pulse Rate [Right] 98 H Respiratory Rate 14 Blood Pressure [Right Arm] 145/87 H Blood Pressure Mean [Right Arm] 106 02 Sat by Pulse Oximetry 97 Oxygen Delivery Method Room Air Orders (Tests/Meds): ED MEDICATIONS Discontinued Medications Generic Name Dose Route Start Last Admin Trade Name Freq PRN Reason Stop Dose Admin Ketorolac Tromethamine 60 mg 08/17/20 01:23 08/17/20 01:25 Ketorolac 60mg/2ml Vial IM 08/17/20 01:24 60 mg ONCE ONE Administration ORDERS Category Date Time Status XR ankle LT min 3V Stat Exams 08/17/20 01:19 Ordered - Radiology Data #1 Image(s): Ankle Image Reviewed: Yes I reviewed the patient's radiology image Preliminary Findings: No Fracture Seen Lower Extremity Injury HPI - General Chief Complaint: Extremity Injury, Lower Stated Complaint: AO 08/17/20 00:45 injury left ankle Time Seen by Provider: 08/17/20 01:25 Mode of Arrival: Wheelchair Source of Information: Patient, Medical Record Limitations: No Limitations Description of Symptoms (Recalled from ER Triage Doc. by RN): pt states fell over boot and twisted lt ankle. pt c/o lt ankle pain - History of Present Illness HPI Narrative: acute lt ankle injury MD complaint: ankle injury Onset (ago): hour(s) Injury: Left: ankle Type of Injury: inversion Place: home Severity: moderate Context: walking Associated symptoms: able to partially bear weight Other symptoms: none - Related Data Home Medications Medication Instructions Recorded Confirmed No Known Home Medications 08/17/20 08/17/20 Allergies Allergy/AdvReac Type Severity Reaction Status Date / Time No Known Allergies Allergy Verified 04/05/20 16:20 [facility] History - Hepatitis A Screen Drug use history?: No High risk sexual behaviors?: No History of sexually transmitted infection?: No Currently employed?: No Childcare worker?: No Do you have indoor plumbing?: Yes Do you have electricity?: Yes Attestation statement:: This patient has been screened for Hepatitis A risk factors. I have reviewed the patient's past medical history: Yes Medical History: Denies:: Cancer, Diabetes Mellitus Type 1, Diabetes Mellitus Type 2, MRSA Other Surgeries: Yes: Appendectomy, Cholecystectomy Amputation: No Fractures: No - Social History Smoking Status: Current every day smoker Tobacco Type: cigarettes # Packs/Day (cigarettes): 1 Alcohol Intake: never Substance Use Type: denies use Occupational Status: employed ROS Obtained: Yes All systems reviewed & no additional complaints - Constitutional Constitutional: Denies fever(s) - Eyes Eyes: Denies change in vision - ENT Ears, Nose, Mouth, and Throat: Denies sore throat - Cardiovascular Cardiovascular: Denies chest pain - Respiratory
[2020-08-17 01:50] VITALS: BP 134/77; PULSE 97; RESP 14; TEMP 36.9; O2SAT 97
== END 2020-08-17 01:53 | disposition home or self-care (01) ==
PROVIDERS: Emergency Provider Emergency Medicine
DX: S93.402A Sprain of unspecified ligament of left ankle, initial encounter (principal); X50.1XXA Overexertion from prolonged static or awkward postures, initial encounter; Y92.019 Unspecified place in single-family (private) house as the place of occurrence of the external cause; F17.210 Nicotine dependence, cigarettes, uncomplicated
CPT/HCPCS: 73610; 96372; 99282

== ENCOUNTER 2021-01-28 18:37 | Emergency (ER) | payer MEDICAID, SELFPAY ==
[2021-01-28 20:14] VITALS: BP 126/84; PULSE 84; RESP 14; TEMP 36.8; O2SAT 95; BMI 48.4
[2021-01-28 20:19] VITALS: BP 126/84; PULSE 84; RESP 14; TEMP 36.8
--- NOTE | 2021-01-28 20:23 | HMH.EDUTC ---
[facility] [place] Clinical Impression: Exposure to COVID-19 virus Disposition: Home, Self-Care Condition on Discharge: Good Instructions: DI for COVID-19 (Suspected or Confirmed ), Preventing the Spread of Coronavirus Discharge Instructions Additional Instructions: Drink plenty of fluids. Take tylenol for pain or fever. Return if you begin to have difficulty breathing. Follow up with your regular doctor. GO TO THE ER FOR ANY WORSENING SYMPTOMS Quarantine until you know the results of your covid-19 test. If it is positive, the health department should call you and give you further instructions about your length of Quarantine and other things. Notify your school or workplace of your results and follow their instructions regarding return to work/school. Referrals: Provider,Referral, [Referring] - Forms: Work/School Release Time of Disposition: 20:24 Medical Decision Making - Medical Records Medical records reviewed: No: I reviewed the patient's medical records. - Kumar Inquiry Pt receiving controlled substance: No Vital Signs: 01/28/21 20:14 01/28/21 20:19 Temperature 98.3 F 98.3 F Temperature Source Oral Pulse Rate 84 Pulse Rate [Left] 84 Respiratory Rate 14 14 Blood Pressure 126/84 Blood Pressure [Right Arm] 126/84 Blood Pressure Mean [Right Arm] 98 02 Sat by Pulse Oximetry 95 [facility] [place] - General Stated complaint: covid test Time Seen by Provider: 01/28/21 20:23 Mode of Arrival: Ambulatory Source of Information: Patient Limitations: No Limitations Description of Symptoms (Recalled from Triage Doc. by RN): covid test. asymptomatic. HEENT Symptoms (Recalled from RN notes): No Resp Symptoms (Recalled from RN notes): No Skin Symptoms (Recalled from RN notes): No MS Symptoms (Recalled from RN notes): No Functional Status (Recalled from RN notes): na - History of Present Illness Provider Complaint: She reports that she was exposed to covid-19 around 3 days ago. She denies any symptoms so far. - Related Data Home Medications Medication Instructions Recorded Confirmed No Known Home Medications 08/17/20 08/17/20 Allergies Allergy/AdvReac Type Severity Reaction Status Date / Time No Known Allergies Allergy Verified 04/05/20 16:20 - Worker's Comp Is this a Worker's Comp case?: No [facility] History - Hepatitis A Screen Drug use history?: No High risk sexual behaviors?: No History of sexually transmitted infection?: No Currently employed?: No Childcare worker?: No Do you have indoor plumbing?: Yes Do you have electricity?: Yes Attestation statement:: This patient has been screened for Hepatitis A risk factors. I have reviewed the patient's past medical history: Yes Medical History: Denies:: Cancer, Diabetes Mellitus Type 1, Diabetes Mellitus Type 2, MRSA Other Surgeries: Yes: Appendectomy, Cholecystectomy Amputation: No Fractures: No - Social History Smoking Status: Current every day smoker Tobacco Type: cigarettes # Packs/Day (cigarettes): 1 Alcohol Intake: never Substance Use Type: denies use Occupational Status: employed ROS Obtained: Yes All systems reviewed & no additional complaints - Constitutional Constitutional: Reports system reviewed and no additional complaints, except as docu - Eyes Eyes: Reports system reviewed and no additional complaints, except as docu - ENT Ears, Nose, Mouth, and Throat: Reports system reviewed and no additional complaints, except as docu - Cardiovascular Cardiovascular: Reports system reviewed and no additional complaints, except as docu - Respiratory Respiratory: Reports system reviewed and no additional complaints, except as docu - Gastrointestinal Gastrointestingal: Reports: system reviewed and no additional complaints, except as docu Physical Exam - General General appearance: alert, in no apparent distress - Head Head exam: atraumatic, normocephalic, normal inspection - Eye Eye
== END 2021-01-28 20:37 | disposition home or self-care (01) ==
PROVIDERS: Emergency Provider Nurse Practitioner Family; PCP Family Medicine
DX: Z20.822 Contact with and (suspected) exposure to COVID-19 (principal); F17.210 Nicotine dependence, cigarettes, uncomplicated
CPT/HCPCS: 99202; C9803; G0463; U0003; U0005

== ENCOUNTER 2021-02-21 00:07 | Emergency (ER) | payer MEDICAID, SELFPAY ==
[2021-02-21 00:08] VITALS: BP 121/93; PULSE 106; RESP 20; TEMP 36.9; O2SAT 99; BMI 48.6
[2021-02-21 00:14] VITALS: BMI 48.6
--- NOTE | 2021-02-21 00:14 | XR_ITS ---
PROCEDURE INFORMATION: Exam: XR Right Ankle Exam date and time: 02/21/2021 12:14 AM Age: 26 years old Clinical indication: Injury or trauma; Other: Twisted ankle; Sprain or strain; Right; Injury date: 02/20/2021; Additional info: Pain twisted ankle TECHNIQUE: Imaging protocol: XR Right ankle. Views: 3 or more views. COMPARISON: CR XR ANKLE WT BEARING RT MIN 3V 04/05/2020 3:56 PM FINDINGS: Bones/joints: Age indeterminate avulsion fracture deformity of the distal fibula superimposed on chronic post-traumatic changes. Ankle mortise appears intact. Accessory os trigonum incidentally noted. Linear 8 mm hyperdensity projecting over the plantar aspect of the forefoot seen on AP view only. Soft tissues: Soft tissue edema noted. IMPRESSION: 1. Age indeterminate avulsion fracture deformity of the distal fibula superimposed on chronic post-traumatic changes. 2. Linear 8 mm hyperdensity projecting over the plantar aspect of the forefoot seen on AP view only may be external to the patient vs soft tissue foreign body. Please correlate physical exam.
--- NOTE | 2021-02-21 00:40 | HMH.EDLOEX ---
ED Disposition Clinical Impression: Ankle joint disorder, Ankle sprain and strain Disposition: Home, Self-Care Condition on Discharge: Good Instructions: Sprain Additional Instructions: see dr cruz for follow up Referrals: Rene Moura MD [Primary Care Provider] - - Critical Care Critical Care Time: No Attestation: On 02/21/21, the high probability of a clinically significant, sudden or life threatening deterioration of the following system(s) required my full and direct attention, intervention and personal management. The time I documented below is in addition to time spent performing reported procedures but includes the following listed in this critical care notation. Medical Decision Making - Medical Records Medical records reviewed: Yes: I reviewed the patient's medical records. - Kumar Inquiry Pt receiving controlled substance: No Vital Signs: 02/21/21 00:08 Temperature 98.4 F Temperature Source Oral Pulse Rate [Right] 106 H Respiratory Rate 20 Blood Pressure [Right Arm] 121/93 H Blood Pressure Mean [Right Arm] 102 02 Sat by Pulse Oximetry 99 Oxygen Delivery Method Room Air - Lab Data Lab results reviewed: Yes: I reviewed the patient's lab results. - Radiology Data #1 Image(s): Ankle Image Reviewed: Yes I have reviewed radiologist's interpretation Preliminary Findings: Abnormal (see report ) Medical Decision Narrative: will ask pt to see dr cruz for follow up as pt has acute on chronic injury Lower Extremity Injury HPI - General Chief Complaint: Extremity Injury, Lower Stated Complaint: Rt Ankle Pain;Twisted ankle while walking Time Seen by Provider: 02/21/21 00:40 Mode of Arrival: Family Vehicle Source of Information: Patient, Medical Record Limitations: No Limitations Description of Symptoms (Recalled from ER Triage Doc. by RN): Pt c/o twisted ankle this evening. She c/o pain and NWB to Rt ankle. - History of Present Illness HPI Narrative: acute injury rt ankle tonight complaint: ankle injury Onset (ago): hour(s) Injury: Right: ankle Type of Injury: eversion Place: home Severity: moderate Context: walking Associated symptoms: unable to bear weight Other symptoms: none - Related Data Home Medications Medication Instructions Recorded Confirmed No Known Home Medications 08/17/20 08/17/20 Allergies Allergy/AdvReac Type Severity Reaction Status Date / Time No Known Allergies Allergy Verified 04/05/20 16:20 [facility] History - Hepatitis A Screen Drug use history?: No High risk sexual behaviors?: No History of sexually transmitted infection?: No Currently employed?: No Childcare worker?: No Do you have indoor plumbing?: Yes Do you have electricity?: Yes Attestation statement:: This patient has been screened for Hepatitis A risk factors. I have reviewed the patient's past medical history: Yes Medical History: Denies:: Cancer, Diabetes Mellitus Type 1, Diabetes Mellitus Type 2, MRSA Other Surgeries: Yes: Appendectomy, Cholecystectomy Amputation: No Fractures: No - Social History Smoking Status: Current every day smoker Tobacco Type: cigarettes # Packs/Day (cigarettes): 1 Alcohol Intake: never Substance Use Type: denies use Occupational Status: employed ROS Obtained: Yes All systems reviewed & no additional complaints - Constitutional Constitutional: Denies fever(s) - Eyes Eyes: Denies change in vision - ENT Ears, Nose, Mouth, and Throat: Denies sore throat - Cardiovascular Cardiovascular: Denies chest pain - Respiratory Respiratory: Denies shortness of breath - Gastrointestinal Gastrointestingal: Denies: abdominal pain - Genitourinary Female Genitourinary: Denies hematuria - Musculoskeletal Musculoskeletal: Reports as per HPI, Reports joint pain, Reports joint swelling, Reports limited range of motion - Integumentary/Breasts Skin/Breast: Denies rash - Neurologic Neurologic: Denies headache(s), Denies
[2021-02-21 01:18] VITALS: BP 124/80; PULSE 90; RESP 18; TEMP 36.9; O2SAT 99
== END 2021-02-21 02:05 | disposition home or self-care (01) ==
PROVIDERS: Emergency Provider Emergency Medicine; PCP Family Medicine
DX: S93.401A Sprain of unspecified ligament of right ankle, initial encounter (principal); X50.1XXA Overexertion from prolonged static or awkward postures, initial encounter; F17.210 Nicotine dependence, cigarettes, uncomplicated
CPT/HCPCS: 29515; 73610; 99282

== ENCOUNTER 2021-06-29 18:29 | Emergency (ER) | payer MEDICAID, SELFPAY ==
[2021-06-29 18:30] VITALS: BP 130/81; PULSE 96; RESP 16; TEMP 36.8; O2SAT 95; BMI 48.8
--- NOTE | 2021-06-29 18:47 | HMH.EDGENADL ---
ED Disposition Condition on Discharge: Good - Critical Care Critical Care Time: No <David Messina - Last Filed: 06/29/21 18:47> <Angel Frazier - Last Filed: 06/29/21 23:08> Clinical Impression: Lower abdominal pain Qualifiers: Weeks of gestation: 16 weeks Qualified Code(s): Z3A.16 - 16 weeks gestation of Disposition: Home, Self-Care Instructions: DI for -- Discomforts and Remedies Additional Instructions: call ob in am for follow up Referrals: Rene Moura MD [Primary Care Provider] - Shamar Lujan MD [Staff Physician] - Berenice Dominique MD [Staff Physician] - Attestation: On 06/29/21, the high probability of a clinically significant, sudden or life threatening deterioration of the following system(s) required my full and direct attention, intervention and personal management. The time I documented below is in addition to time spent performing reported procedures but includes the following listed in this critical care notation. Medical Decision Making - Medical Records Medical records reviewed: Yes: I reviewed the patient's medical records. - Kumar Inquiry Pt receiving controlled substance: No <David Messina - Last Filed: 06/29/21 18:47> - Lab Data Lab results reviewed: Yes: I reviewed the patient's lab results. Result diagrams: 06/29/21 19:10 06/29/21 19:10 - CT Data CT Scan: Abdomen, Pelvis Time Received: 23:[address] Reviewed: Yes: I have viewed the radiologist's interpretation Preliminary Findings: Abnormal (iup) - US Data US Images: Pelvis ED US Reviewed: Yes: I discussed the US results w/the radiologist <Angel Frazier S - Last Filed: 06/29/21 23:08> Vital Signs: 06/29/21 18:30 Temperature 98.2 F Temperature Source Oral Pulse Rate [Right Radial] 96 H Respiratory Rate 16 Blood Pressure [Right Arm] 130/81 Blood Pressure Mean [Right Arm] 97 Blood Pressure Source [Right Arm] Automatic Cuff Blood Pressure Position [Right Arm] Sitting 02 Sat by Pulse Oximetry 95 Oxygen Delivery Method Room Air - Lab Data Lab Results 06/29/21 19:10: Urine Color Yellow, Urine Appearance Clear, Urine pH 8.5, Ur Specific [place] 1.015, Urine Protein Negative, Urine Glucose (UA) Negative, Urine Ketones Negative, Urine Blood Negative, Urine Nitrate Negative, Urine Bilirubin Negative, Urine Urobilinogen 0.2, Ur Leukocyte Esterase Negative, Urine WBC Occasional, Ur Squamous Epith Cells 3-5, Urine Bacteria 1+ 06/29/21 19:10: WBC 12.1 H, RBC 4.78, Hgb 13.7, Hct 40.3, MCV 84.3, MCH 28.7, MCHC 34.0, RDW 14.0, Plt Count 326, MPV 8.1, Neut % (Auto) 66.2, Lymph % (Auto) 23.8, [place] % (Auto) 4.0, Eos % (Auto) 3.3, Baso % (Auto) 2.7 H, Neut # (Auto) 8.0 H, Lymph # (Auto) 2.9, [place] # (Auto) 0.5, Eos # (Auto) 0.4, Baso # (Auto) 0.3 H 06/29/21 19:10: Urine HCG, Qual Positive 06/29/21 19:10: Sodium 138, Potassium 3.9, Chloride 108 H, Carbon Dioxide 23, Anion Gap 10.9, BUN 5 L, Creatinine 0.50 L, Estimated Creat Clear 174, Estimated GFR 150, Est GFR ( Amer) 182, Glucose 110 H, Calcium 9.6, Total Bilirubin 0.2, AST 24, ALT 25, Alkaline Phosphatase 52, Total Protein 6.7, Albumin 3.8, Globulin 2.9, Albumin/Globulin Ratio 1.3 06/29/21 19:10: HCG, Quant [id number] H 06/29/21 19:10: Serum HCG, Qual Positive Orders (Tests/Meds): ED MEDICATIONS Generic Name Dose Route Start Last Admin Trade Name Freq PRN Reason Stop Dose Admin Sodium Chloride 10 ml 06/29/21 18:48 06/29/21 19:21 Sodium Chloride 0.9% 10ml Flush Syringe IV 07/29/21 18:47 10 ml NEEDED PRN Administration Maintain IV Site Discontinued Medications Generic Name Dose Route Start Last Admin Trade Name Freq PRN Reason Stop Dose Admin Iopamidol 75 ml 06/29/21 20:08 06/29/21 20:09 Iopamidol-370 (76%);100ml Bottle IV 06/29/21 20:09 75 ml ONCE ONE Administration Morphine Sulfate 4 mg 06/29/21 18:46 06/29/21 19:20 Morphine 4mg/Ml Syringe IV 06/29/21 18:47 4 mg ONCE ONE
[2021-06-29 19:18] LABS: Microscopic, Urine URINE MICROSCOPIC (MICROSCOPIC)
[2021-06-29 19:24] LABS: Basophils # 0.3 K/mm3 (0-0.2); Basophils % 2.7 % (0.1-2.0); Eosinophils # 0.4 K/mm3 (0.0-0.4); Eosinophils % 3.3 % (0.1-12.0); Hematocrit 40.3 % (37.0-47.0); Hemoglobin 13.7 g/dL (12.2-16.2); Lymphocytes # 2.9 K/mm3 (0.7-4.5); Lymphocytes % 23.8 % (10-50); Mean Corpuscular Hemoglobin 28.7 pg (27.0-31.2); Mean Corpuscular Volume 84.3 fl (81-99); Mean Platelet Volume 8.1 fl (7.4-10.4); Monocytes # 0.5 K/mm3 (0.1-1.0); Neutrophils % 66.2 % (37.0-80.0); Platelet Count 326 K/mm3 (142-424); Red Blood Count 4.78 M/mm3 (4.20-5.40); White Blood Count 12.1 K/mm3 (4.8-10.8)
[2021-06-29 19:28] LABS: Appearance,Urine CLEAR (Clear); Bilirubin,Urine Negative (Negative); Blood, Urine Negative (Negative); Color,Urine YELLOW (Yellow); Glucose,Urine (UA) Negative (Negative); Ketones,Urine Negative (Negative); Leukocyte Esterase,Urine Negative (Negative); Nitrate,Urine Negative (Negative); PH,Urine 8.5 (5.0-8.5); Protein,Urine Negative (Negative); Specific Gravity, Urine 1.015 (1.005-1.030); Urobilinogen,Urine 0.2 EU/dl (0.2)
[2021-06-29 19:35] LABS: Bacteria,Urine 1+ /lpf; WBC,Urine Occasional #/hpf (0-3)
--- NOTE | 2021-06-29 19:39 | CT_ITS ---
PROCEDURE INFORMATION: Exam: CT Abdomen And Pelvis With Contrast Exam date and time: 06/29/2021 7:39 PM Age: 26 years old Clinical indication: Localized; Patient HX: Left sided abdominal pain all day. No other symptoms per patient. Negative test in er prior to catscan. ; Additional info: Llq abd pain TECHNIQUE: Imaging protocol: Computed tomography of the abdomen and pelvis with contrast. Radiation optimization: All CT scans at this facility use at least one of these dose optimization techniques: automated exposure control; mA and/or kV adjustment per patient size (includes targeted exams where dose is matched to clinical indication); or iterative reconstruction. Contrast material: ISOVUE; Contrast volume: 75 ml; Contrast route: IV; COMPARISON: ABDPELWO CT abdomen pelvis wo con 08/05/2017 11:15 PM FINDINGS: Liver: Focal fatty deposition noted near the falciform ligament. No suspicious liver lesions. Gallbladder and bile ducts: Status post cholecystectomy. No intra- or extra-hepatic biliary ductal dilatation. Pancreas: Within normal limits. Spleen: Within normal limits. Adrenal glands: Within normal limits. Kidneys and ureters: Within normal limits. Stomach and bowel: Within normal limits. Appendix: Status post appendectomy. Intraperitoneal space: No free fluid. No pneumoperitoneum. Vasculature: Within normal limits. Lymph nodes: No enlarged lymph nodes by CT criteria. Urinary bladder: Within normal limits. Reproductive: Single intrauterine gestation, approximately 2nd trimester. Bones/joints: No acute osseous abnormality. Soft tissues: Unremarkable. IMPRESSION: 1. No acute findings in the abdomen or pelvis. 2. Single intrauterine gestation, approximately 2nd trimester.
[2021-06-29 19:42] LABS: Alanine Aminotransferase 25 U/L (12-78); Albumin Level 3.8 g/dl (3.5-5.0); Albumin/Globulin Ratio 1.3 (1.1-1.8); Alkaline Phosphatase 52 U/L (38-126); Anion Gap 10.9 mEq/L (5-15); Aspartate Amino Transferase 24 U/L (14-36); Bilirubin,Total 0.2 mg/dl (0.2-1.3); Blood Urea Nitrogen 5 mg/dl (7-17); Calcium 9.6 mg/dl (8.4-10.2); Carbon Dioxide 23 mmol/L (22.0-30.0); Chloride 108 mmol/L (98-107); Creatinine Clearance Estimated 174 mL/min (50-200); Estimated Glomerular Filt Rate 150 ml/min (>60); GFR (African American) 182 ML/MIN (>60); Globulin 2.9 g/dL (1.3-3.2); Glucose 110 mg/dl (74-100); Potassium 3.9 mmoL/L (3.5-5.1); Sodium 138 mmol/L (136-145); Total Protein,Serum 6.7 g/dl (6.3-8.2)
--- NOTE | 2021-06-29 21:24 | PC.NURSE ---
Dr. Frazier would like a repeat urine preg test. s/e Mark in the lab and he will repeat this test
[2021-06-29 21:30] LABS: Urine Pregnancy, HCG Qual. Positive (Negative)
[2021-06-29 21:46] LABS: HCG Qualitative, Serum Positive (Negative)
--- NOTE | 2021-06-29 21:48 | INFXCTL.NOTE ---
Dr. Frazier would like transvaginal us, notified radiology to call in u/s tech
--- NOTE | 2021-06-29 21:49 | US_ITS ---
PROCEDURE INFORMATION: Exam: US , Limited Exam date and time: 06/29/2021 9:49 PM Age: 26 years old Clinical indication: Other: Left low quad pain; Gestational age or lmp: PT unsure of dates; ; Additional info: Possible 2nd trimester lower abd pain TECHNIQUE: Imaging protocol: Real-time ultrasound of the maternal uterus with image documentation. Exam focused on the clinical indication. COMPARISON: CT ABDOMEN PELVIS W CON 06/29/2021 7:53 PM FINDINGS: Gestation: Single viable intrauterine gestation 16 weeks and 2 days. heart rate: heart rate 147 bpm. presentation: Breech presentation. BIOMETRY: Biparietal diameter (BPD): 16 weeks 1 day. Head circumference: 16 weeks 0 days. Abdominal circumference (AC): 16 weeks 2 days. Femur length (FL): 16 weeks 3 days. MATERNAL: Adnexa: No solid adnexal masses. Ovaries: Ovaries is not seen. Intraperitoneal space: No free fluid. IMPRESSION: Single viable intrauterine gestation 16 weeks 2 days heart rate 147 bpm. No abnormalities noted.
[2021-06-29 22:03] LABS: HCG,Quantitative 10521 mIU/ml (0-5.42)
[2021-06-29 23:26] VITALS: BP 112/53; PULSE 89; RESP 16; TEMP 37.1; O2SAT 99
--- NOTE | 2021-07-04 13:32 | PC.NURSE ---
Dr. Frazier spoke with this patient via phone today and explained why we obtained the CT scan and then obtained the US. HE explained everything in great detail to patient, she had no questions and was satisfied with Dr. Frazier's explanation. Advises she does have a pending appt with Dr. Dominique for follow-up of her .
== END 2021-06-29 23:29 | disposition home or self-care (01) ==
PROVIDERS: Emergency Medicine; Emergency Provider Emergency Medicine; PCP Family Medicine
DX: R10.30 Lower abdominal pain, unspecified (principal); Z3A.16 16 weeks gestation of pregnancy
CPT/HCPCS: 74177; 76801; 80053; 81001; 81025; 84702; 84703; 85025; 96365; 99283; Q9967

== ENCOUNTER → 2021-07-04 11:57 | Outpatient (CLI) | payer MEDICAID, SELFPAY ==
[2021-07-04 13:04] LABS: Basophils # 0.1 K/mm3 (0-0.2); Eosinophils # 0.5 K/mm3 (0.0-0.4); Eosinophils % 3.7 % (0.1-12.0); Hemoglobin 12.9 g/dL (12.2-16.2); Lymphocytes # 3.2 K/mm3 (0.7-4.5); Lymphocytes % 23.5 % (10-50); Mean Corpuscular HGB Conc 33.1 g/dL (31.8-35.4); Mean Corpuscular Hemoglobin 28.7 pg (27.0-31.2); Mean Corpuscular Volume 86.7 fl (81-99); Mean Platelet Volume 8.8 fl (7.4-10.4); Monocytes # 0.7 K/mm3 (0.1-1.0); Monocytes % 5.5 % (1.7-9.3); Neutrophils # 8.9 K/mm3 (1.8-7.8); Neutrophils % 66.4 % (37.0-80.0); Platelet Count 310 K/mm3 (142-424); Red Cell Distribution Width 13.8 % (11.5-17.5); White Blood Count 13.4 K/mm3 (4.8-10.8)
[2021-07-05 08:28] LABS: Rubella Antibodies, IgG <0.90 index (Immune >0.99)
[2021-07-05 09:27] LABS: HIV Screen 4th Generation wRfx Non Reactive (Non Reactive)
[2021-07-05 10:23] LABS: Rapid Plasma Reagin Ab Titer Non Reactive (NonRea<1:1)
[2021-07-05 11:21] LABS: Hepatitis B Surface Antigen Negative (Negative); Hepatitis C Antibody 0.1 s/co ratio (0.0-0.9)
== END ==
PROVIDERS: PCP Family Medicine; Visit Provider Obstetrics & Gynecology
DX: Z34.90 Encounter for supervision of normal pregnancy, unspecified, unspecified trimester (principal)
CPT/HCPCS: 36415; 85025; 86592; 86703; 86762; 86850; 87340; 87380; G0432

== ENCOUNTER 2021-07-06 21:28 | Emergency (ER) | payer MEDICAID, SELFPAY ==
[2021-07-06 21:29] VITALS: BP 142/82; PULSE 115; RESP 20; TEMP 36.9; O2SAT 98; BMI 48.6
--- NOTE | 2021-07-06 22:10 | HMH.EDPREG ---
ED Disposition Clinical Impression: Abdominal pain Qualifiers: Abdominal location: epigastric Qualified Code(s): R10.13 - Epigastric pain Qualifiers: Weeks of gestation: 16 weeks Qualified Code(s): Z3A.16 - 16 weeks gestation of Disposition: Home, Self-Care Condition on Discharge: Good Instructions: DI for -- Discomforts and Remedies Additional Instructions: see pcp for follow up Referrals: Rene Moura MD [Primary Care Provider] - Berenice Dominique MD [Staff Physician] - - Critical Care Critical Care Time: No Attestation: On 07/06/21, the high probability of a clinically significant, sudden or life threatening deterioration of the following system(s) required my full and direct attention, intervention and personal management. The time I documented below is in addition to time spent performing reported procedures but includes the following listed in this critical care notation. Medical Decision Making - Medical Records Medical records reviewed: Yes: I reviewed the patient's medical records. - Kumar Inquiry Pt receiving controlled substance: No Vital Signs: 07/06/21 21:29 Temperature 98.5 F Temperature Source Oral Pulse Rate [Apical] 115 H Respiratory Rate 20 Blood Pressure [Right Arm] 142/82 H Blood Pressure Mean [Right Arm] 102 Blood Pressure Source [Right Arm] Automatic Cuff Blood Pressure Position [Right Arm] Sitting 02 Sat by Pulse Oximetry 98 Oxygen Delivery Method Room Air - Lab Data Lab results reviewed: Yes: I reviewed the patient's lab results. Lab Results 07/06/21 21:42: Urine Color Yellow, Urine Appearance Clear, Urine pH 7.5, Ur Specific [place] 1.010, Urine Protein Negative, Urine Glucose (UA) Negative, Urine Ketones Negative, Urine Blood Negative, Urine Nitrate Negative, Urine Bilirubin Negative, Urine Urobilinogen 0.2, Ur Leukocyte Esterase Negative, Urine RBC None, Urine WBC None, Ur Squamous Epith Cells Occasional, Urine Bacteria None 07/06/21 21:55: WBC 13.3 H, RBC 4.72, Hgb 13.4, Hct 39.5, MCV 83.6, MCH 28.5, MCHC 34.1, RDW 13.7, Plt Count 358, MPV 7.8, Neut % (Auto) 66.3, Lymph % (Auto) 24.9, [place] % (Auto) 5.1, Eos % (Auto) 3.1, Baso % (Auto) 0.5, Neut # (Auto) 8.8 H, Lymph # (Auto) 3.3, [place] # (Auto) 0.7, Eos # (Auto) 0.4, Baso # (Auto) 0.1, ESR 67 H 07/06/21 21:55: Sodium 137, Potassium 3.8, Chloride 107, Carbon Dioxide 22, Anion Gap 11.8, BUN 5 L, Creatinine 0.40 L, Estimated Creat Clear 217, Estimated GFR 194, Est GFR ( Amer) 235, Glucose 104 H, Calcium 9.4, Total Bilirubin 0.3, AST 29, ALT 37, Alkaline Phosphatase 60, C-Reactive Protein 31.5 H, Total Protein 6.9, Albumin 3.8, Globulin 3.1, Albumin/Globulin Ratio 1.2, Amylase 65 07/06/21 21:55: Lipase 114, Procalcitonin 0.049 Result diagrams: 07/06/21 21:55 07/06/21 21:55 Orders (Tests/Meds): ED MEDICATIONS Generic Name Dose Route Start Last Admin Trade Name Freq PRN Reason Stop Dose Admin Sodium Chloride 1,000 mls @ 999 mls/hr 07/06/21 22:15 07/06/21 22:15 Sod Chlor 0.9% 1000ml Bag IV 07/06/21 23:15 999 mls/hr .Q1H1M QUINN Administration Discontinued Medications Generic Name Dose Route Start Last Admin Trade Name Freq PRN Reason Stop Dose Admin Ondansetron HCl 4 mg 07/06/21 22:13 07/06/21 22:15 Ondansetron 4mg/2ml Vial IV 07/06/21 22:14 4 mg ONCE ONE Administration - Reevaluation(s) Time: 23:09 Reevaluation #1: improved Medical Decision Narrative: nonspecific abd pain with stable exam and has nl fht - will d/c to follow up with ob as planned HPI - General Chief complaint: Abdominal Pain Stated complaint: 16 wks abd pain Time Seen by Provider: 07/06/21 21:50 Mode of Arrival: Ambulatory Source of Information: Patient, Medical Record Limitations: No Limitations Description of Symptoms (Recalled from ER Triage Doc. by RN): Pt is 16 weeks . States that since 1700 she has had abdominal pain from the top cente
[2021-07-06 22:22] LABS: Microscopic, Urine URINE MICROSCOPIC (MICROSCOPIC)
[2021-07-06 22:27] LABS: Basophils # 0.1 K/mm3 (0-0.2); Basophils % 0.5 % (0.1-2.0); Eosinophils # 0.4 K/mm3 (0.0-0.4); Eosinophils % 3.1 % (0.1-12.0); Hematocrit 39.5 % (37.0-47.0); Hemoglobin 13.4 g/dL (12.2-16.2); Lymphocytes # 3.3 K/mm3 (0.7-4.5); Lymphocytes % 24.9 % (10-50); Mean Corpuscular HGB Conc 34.1 g/dL (31.8-35.4); Mean Corpuscular Hemoglobin 28.5 pg (27.0-31.2); Mean Corpuscular Volume 83.6 fl (81-99); Mean Platelet Volume 7.8 fl (7.4-10.4); Monocytes # 0.7 K/mm3 (0.1-1.0); Monocytes % 5.1 % (1.7-9.3); Neutrophils # 8.8 K/mm3 (1.8-7.8); Neutrophils % 66.3 % (37.0-80.0); Platelet Count 358 K/mm3 (142-424); Red Blood Count 4.72 M/mm3 (4.20-5.40); Red Cell Distribution Width 13.7 % (11.5-17.5); White Blood Count 13.3 K/mm3 (4.8-10.8)
[2021-07-06 22:31] LABS: Alanine Aminotransferase 37 U/L (12-78); Albumin Level 3.8 g/dl (3.5-5.0); Albumin/Globulin Ratio 1.2 (1.1-1.8); Alkaline Phosphatase 60 U/L (38-126); Amylase 65 U/L (30-110); Anion Gap 11.8 mEq/L (5-15); Aspartate Amino Transferase 29 U/L (14-36); Bilirubin,Total 0.3 mg/dl (0.2-1.3); Blood Urea Nitrogen 5 mg/dl (7-17); Calcium 9.4 mg/dl (8.4-10.2); Carbon Dioxide 22 mmol/L (22.0-30.0); Chloride 107 mmol/L (98-107); Creatinine Clearance Estimated 217 mL/min (50-200); Estimated Glomerular Filt Rate 194 ml/min (>60); GFR (African American) 235 ML/MIN (>60); Globulin 3.1 g/dL (1.3-3.2); Glucose 104 mg/dl (74-100); Potassium 3.8 mmoL/L (3.5-5.1); Sodium 137 mmol/L (136-145); Total Protein,Serum 6.9 g/dl (6.3-8.2)
[2021-07-06 22:32] LABS: Lipase 114 U/L (23-300)
[2021-07-06 22:37] LABS: C-Reactive Protein 31.5 mg/L (0-4)
[2021-07-06 22:41] LABS: Appearance,Urine CLEAR (Clear); Bilirubin,Urine Negative (Negative); Blood, Urine Negative (Negative); Color,Urine YELLOW (Yellow); Glucose,Urine (UA) Negative (Negative); Ketones,Urine Negative (Negative); Leukocyte Esterase,Urine Negative (Negative); Nitrate,Urine Negative (Negative); PH,Urine 7.5 (5.0-8.5); Protein,Urine Negative (Negative); Urobilinogen,Urine 0.2 EU/dl (0.2)
[2021-07-06 22:50] LABS: Procalcitonin 0.049 ng/mL (0.0-2.0)
[2021-07-06 22:51] LABS: Squamous Epithelial Cell,Urine Occasional #/hpf (0-5)
[2021-07-06 22:55] LABS: Erythrocyte Sedimentation Rate 67 mm/hr (0-20)
[2021-07-06 23:18] VITALS: BP 109/72; PULSE 92; RESP 18; TEMP 36.8; O2SAT 97
== END 2021-07-06 23:22 | disposition home or self-care (01) ==
PROVIDERS: Emergency Provider Emergency Medicine; PCP Family Medicine
DX: R10.13 Epigastric pain (principal); Z3A.16 16 weeks gestation of pregnancy; F17.210 Nicotine dependence, cigarettes, uncomplicated
CPT/HCPCS: 80053; 81001; 82150; 83690; 84145; 85025; 85651; 86140; 96365; 96367; 96375; 99283; 99284; J2405

== ENCOUNTER → 2021-07-25 12:39 | Outpatient (CLI) | payer MEDICAID, SELFPAY ==
--- NOTE | 2021-07-25 12:40 | US_ITS ---
FINAL REPORT CLINICAL HISTORY: anatomy scan, OB complete FINDINGS: There is a single live intrauterine gestation. Presentation is cephalic. The cervix is closed and measures 3.45 cm. Placenta is posterior. movement is noted. Heart rate measures 150 beats per minute. Three-vessel cord with satisfactory umbilical cord insertion. Four-chamber heart is noted. brain and ventricles are unremarkable. Chest and diaphragm are unremarkable. ABDOMEN: Both kidneys are unremarkable. Stomach is unremarkable. SPINE: No anomalies identified. Both arms and legs noted. AMNIOTIC FLUID: Appropriate amount. MEASUREMENTS: ULTRASOUND AGE: 20 weeks 0 days. GESTATION AGE: 20 weeks 0 days. ESTIMATED WEIGHT: 335 g GROWTH PERCENTILE: 54% % BPD: 4.5 cm consistent with 19 weeks 4 days. OFD: 6 cm consistent with 20 weeks 3 days. HC: 16.6 cm consistent with 19 weeks 2 days. AC: 14.9 cm consistent with 20 weeks 2 days. FL: 3.3 cm consistent with 20 weeks 3 days. CEREBELLUM: 2 cm consistent with 20 weeks 2 days. HUMERUS: 3.3 cm consistent with 21 weeks 0 days. HC/AC: 1.11 CI: 75% FL/BPD: 75% FL/AC: 22% IMPRESSION: Single living IUP with an ultrasound age of 20 weeks 0 days. Reviewed, Interpreted and Dictated by Todd Uriarte III, MD Transcribed by Kamilah Cowan Authenticated by Todd Uriarte III, MD on 07/25/2021 03:22:08 PM [facility]
== END ==
PROVIDERS: PCP Family Medicine; Visit Provider Obstetrics & Gynecology
DX: Z34.90 Encounter for supervision of normal pregnancy, unspecified, unspecified trimester (principal)
CPT/HCPCS: 76805

== ENCOUNTER 2021-07-31 21:52 | Outpatient (CLI) | payer MEDICAID, SELFPAY ==
[2021-07-31 22:01] VITALS: BMI 50.9
[2021-07-31 22:18] LABS: Microscopic, Urine URINE MICROSCOPIC (MICROSCOPIC)
[2021-07-31 22:21] LABS: Appearance,Urine CLEAR (Clear); Bilirubin,Urine Negative (Negative); Blood, Urine Negative (Negative); Color,Urine YELLOW (Yellow); Glucose,Urine (UA) Negative (Negative); Ketones,Urine Negative (Negative); Leukocyte Esterase,Urine TRACE (Negative); Nitrate,Urine Negative (Negative); Protein,Urine Negative (Negative); Specific Gravity, Urine 1.015 (1.005-1.030); Urobilinogen,Urine 0.2 EU/dl (0.2)
[2021-07-31 22:28] LABS: Bacteria,Urine 1+ /lpf; RBC,Urine Occasional #/hpf (0-3)
[2021-07-31 22:31] LABS: Barbiturates Screen,Urine Negative ng/ml (<200)
[2021-07-31 22:32] LABS: Benzodiazepines Screen,Urine Negative ng/ml (<200)
[2021-07-31 22:33] LABS: Amphetamine/Metha Screen,Urine Negative ng/ml (<1000); Cannabinoid Screen,Urine Negative ng/ml (<50)
[2021-07-31 22:34] LABS: Cocaine Screen,Urine Negative ng/ml (<300)
[2021-07-31 22:35] LABS: Methadone Screen,Urine Negative ng/ml (<300); Opiate Screen,Urine Negative ng/ml (<300)
[2021-07-31 22:36] LABS: Phencyclidine Screen,Urine Negative ng/ml (<25)
[2021-07-31 22:41] VITALS: BP 146/85; PULSE 108; RESP 20; TEMP 36.8; O2SAT 98; BMI 50.9
== END 2021-07-31 23:10 | disposition home or self-care (01) ==
LOC: OBOUT 21:53 → OB 21:55
PROVIDERS: PCP Family Medicine; Visit Provider Obstetrics & Gynecology
DX: O26.892 Other specified pregnancy related conditions, second trimester (principal); Z3A.20 20 weeks gestation of pregnancy; R10.9 Unspecified abdominal pain; M54.50 Low back pain, unspecified
CPT/HCPCS: 59025; 80305; 81001; G0463

== ENCOUNTER 2021-09-19 08:03 | Outpatient (CLI) | payer MEDICAID, SELFPAY ==
[2021-09-19 08:26] LABS: Basophils # 0.2 K/mm3 (0-0.2); Basophils % 1.5 % (0.1-2.0); Eosinophils # 0.6 K/mm3 (0.0-0.4); Hematocrit 36.6 % (37.0-47.0); Hemoglobin 12.6 g/dL (12.2-16.2); Lymphocytes # 3.6 K/mm3 (0.7-4.5); Lymphocytes % 22.2 % (10-50); Mean Corpuscular HGB Conc 34.5 g/dL (31.8-35.4); Mean Corpuscular Hemoglobin 30.1 pg (27.0-31.2); Mean Corpuscular Volume 87.1 fl (81-99); Mean Platelet Volume 7.9 fl (7.4-10.4); Monocytes # 0.7 K/mm3 (0.1-1.0); Monocytes % 4.5 % (1.7-9.3); Neutrophils # 10.9 K/mm3 (1.8-7.8); Neutrophils % 67.8 % (37.0-80.0); Platelet Count 387 K/mm3 (142-424); Red Blood Count 4.21 M/mm3 (4.20-5.40); Red Cell Distribution Width 13.5 % (11.5-17.5)
[2021-09-19 08:31] LABS: MANUAL DIFFERENTIAL MANUAL DIFFERENTIAL (MANUAL DIFF)
[2021-09-19 08:39] LABS: Glucose,Fasting 113 mg/dl (74-100)
[2021-09-19 09:53] LABS: Glucose 1 Hour 168 mg/dL (74-100)
[2021-09-19 09:55] VITALS: BP 120/69; PULSE 104; RESP 18; O2SAT 96
[2021-09-19 10:47] LABS: Eosinophils % 2 % (0-3); Lymphocytes % 28 % (10-50); Monocytes % 5 % (2-9); Neutrophils % 63 % (42-76); Platelet Estimate Normal; RBC Morphology Normal; Total Cells Counted 100
== END 2021-09-19 09:55 | disposition home or self-care (01) ==
LOC: INF 08:04
PROVIDERS: PCP Family Medicine; Visit Provider Obstetrics & Gynecology
DX: Z34.90 Encounter for supervision of normal pregnancy, unspecified, unspecified trimester (principal)
CPT/HCPCS: 36415; 82951; 85007; 85025; 96372; J2790

== ENCOUNTER 2021-09-21 21:42 | Outpatient (CLI) | payer MEDICAID, SELFPAY ==
[2021-09-21 21:53] VITALS: BMI 51.5
[2021-09-21 22:06] LABS: Microscopic, Urine URINE MICROSCOPIC (MICROSCOPIC)
[2021-09-21 22:11] LABS: Appearance,Urine CLEAR (Clear); Bilirubin,Urine Negative (Negative); Blood, Urine Negative (Negative); Color,Urine YELLOW (Yellow); Glucose,Urine (UA) Negative (Negative); Ketones,Urine Negative (Negative); Leukocyte Esterase,Urine Negative (Negative); Nitrate,Urine Negative (Negative); PH,Urine 6.5 (5.0-8.5); Protein,Urine Negative (Negative); Specific Gravity, Urine <= 1.005 (1.005-1.030)
[2021-09-21 22:21] LABS: Bacteria,Urine 2+ /lpf; Squamous Epithelial Cell,Urine Occasional #/hpf (0-5)
[2021-09-21 22:22] LABS: Barbiturates Screen,Urine Negative ng/ml (<200)
[2021-09-21 22:23] LABS: Amphetamine/Metha Screen,Urine Negative ng/ml (<1000); Benzodiazepines Screen,Urine Negative ng/ml (<200)
[2021-09-21 22:24] LABS: Cannabinoid Screen,Urine Negative ng/ml (<50)
[2021-09-21 22:25] LABS: Cocaine Screen,Urine Negative ng/ml (<300); Methadone Screen,Urine Negative ng/ml (<300)
[2021-09-21 22:26] LABS: Opiate Screen,Urine Negative ng/ml (<300)
[2021-09-21 22:27] LABS: Phencyclidine Screen,Urine Negative ng/ml (<25)
[2021-09-21 22:37] VITALS: BP 139/74; PULSE 106; RESP 19; TEMP 36.8; O2SAT 96; BMI 51.5
== END 2021-09-21 23:15 | disposition home or self-care (01) ==
LOC: OBOUT 21:45 → OB 21:46
PROVIDERS: PCP Obstetrics & Gynecology; Visit Provider Obstetrics & Gynecology
DX: Z3A.28 28 weeks gestation of pregnancy; O26.899 Other specified pregnancy related conditions, unspecified trimester; R10.30 Lower abdominal pain, unspecified
CPT/HCPCS: 80305; 81001; 87086; 87088; 87186; G0463

== ENCOUNTER → 2021-09-30 11:58 | Outpatient (CLI) | payer MEDICAID, SELFPAY ==
[2021-09-30 12:33] LABS: Glucose,Fasting 105 mg/dl (74-100)
[2021-09-30 13:35] LABS: Glucose 1 Hour 147 mg/dL (74-100)
[2021-09-30 14:39] LABS: Glucose 2 Hour 167 mg/dL (74-100)
[2021-09-30 15:57] LABS: Glucose 3 Hour 146 mg/dL (74-100)
== END ==
PROVIDERS: PCP Family Medicine; Visit Provider Obstetrics & Gynecology
DX: Z34.90 Encounter for supervision of normal pregnancy, unspecified, unspecified trimester (principal)
CPT/HCPCS: 36415; 82951

== ENCOUNTER 2021-10-15 20:47 | Outpatient (CLI) | payer MEDICAID, SELFPAY ==
[2021-10-15 20:52] VITALS: BMI 50.3
[2021-10-15 21:00] VITALS: BP 135/70; PULSE 98; RESP 18; TEMP 36.6; O2SAT 99; BMI 50.3
[2021-10-15 21:25] LABS: Microscopic, Urine URINE MICROSCOPIC (MICROSCOPIC)
[2021-10-15 21:30] LABS: Appearance,Urine CLEAR (Clear); Bilirubin,Urine Negative (Negative); Blood, Urine Negative (Negative); Color,Urine YELLOW (Yellow); Glucose,Urine (UA) Negative (Negative); Ketones,Urine Negative (Negative); Leukocyte Esterase,Urine Negative (Negative); Nitrate,Urine Negative (Negative); Protein,Urine Negative (Negative); Specific Gravity, Urine <= 1.005 (1.005-1.030); Urobilinogen,Urine 0.2 EU/dl (0.2)
[2021-10-15 21:36] LABS: Fetal Membrane Rupture (Rapid) Negative (Negative)
[2021-10-15 21:40] LABS: Amphetamine/Metha Screen,Urine Negative ng/ml (<1000); Bacteria,Urine Trace /lpf
[2021-10-15 21:41] LABS: Barbiturates Screen,Urine Negative ng/ml (<200)
[2021-10-15 21:42] LABS: Benzodiazepines Screen,Urine Negative ng/ml (<200); Cannabinoid Screen,Urine Negative ng/ml (<50)
[2021-10-15 21:43] LABS: Cocaine Screen,Urine Negative ng/ml (<300)
[2021-10-15 21:44] LABS: Methadone Screen,Urine Negative ng/ml (<300); Opiate Screen,Urine Negative ng/ml (<300)
[2021-10-15 21:45] LABS: Phencyclidine Screen,Urine Negative ng/ml (<25)
[2021-10-15 22:19] LABS: POC Glucose,Bedside 108 (70-110)
== END 2021-10-15 22:05 | disposition home or self-care (01) ==
LOC: OBOUT 20:48 → OB 20:50
PROVIDERS: PCP Obstetrics & Gynecology; Visit Provider Nurse Practitioner Obstetrics & Gynecology
DX: O26.893 Other specified pregnancy related conditions, third trimester (principal); Z3A.31 31 weeks gestation of pregnancy; R42 Dizziness and giddiness
CPT/HCPCS: 59025; 80305; 81001; 82962; 84112; G0463

== ENCOUNTER → 2021-11-01 14:19 | Outpatient (CLI) | payer MEDICAID, SELFPAY ==
--- NOTE | 2021-11-01 14:22 | US_ITS ---
FINAL REPORT CLINICAL HISTORY: growth and ALBER FINDINGS: There is a single live intrauterine gestation. Presentation is cephalic. The cervix is closed and measures 3.15 cm. Placenta is posterior. movement is noted. Heart rate is 150 beats per minute. AMNIOTIC FLUID: Appropriate amount. MEASUREMENTS: ULTRASOUND AGE: 35 weeks 4 days. GESTATION AGE: 34 weeks 1 day. ESTIMATED WEIGHT: 2501 g GROWTH PERCENTILE: 62% BPD: 9.14 cm corresponding to 37 weeks 1 day. OFD: 11.21 cm corresponding with 37 weeks 1 day. HC: 32.13 cm corresponding with 36 weeks 2 days. AC: 30.32 cm corresponding to 34 weeks days. FL: 6.64 cm corresponding to 34 weeks 2 days. HC/AC: 1.06 CI: 82% FL/BPD: 73% FL/AC: 22% IMPRESSION: Single intrauterine with growth of 62% and normal amniotic fluid. Reviewed, Interpreted and Dictated by Todd Uriarte III, MD Transcribed by Libia Xiong Authenticated and [facility]
== END ==
PROVIDERS: PCP Obstetrics & Gynecology; Visit Provider Obstetrics & Gynecology
DX: O24.419 Gestational diabetes mellitus in pregnancy, unspecified control (principal); O36.60X0 Maternal care for excessive fetal growth, unspecified trimester, not applicable or unspecified
CPT/HCPCS: 76816

== ENCOUNTER 2021-11-02 17:28 | Outpatient (CLI) | payer MEDICAID, SELFPAY ==
[2021-11-02 17:46] VITALS: BMI 48.6
[2021-11-02 17:51] VITALS: BMI 49.8
[2021-11-02 17:59] VITALS: BP 125/80; PULSE 105; RESP 18; TEMP 36.6; O2SAT 97; BMI 48.6
[2021-11-02 18:35] LABS: Appearance,Urine CLEAR (Clear); Blood, Urine Negative (Negative); Color,Urine AMBER (Yellow); Glucose,Urine (UA) Negative (Negative); Ketones,Urine Negative (Negative); Leukocyte Esterase,Urine Negative (Negative); Microscopic, Urine URINE MICROSCOPIC (MICROSCOPIC); Nitrate,Urine Negative (Negative); Protein,Urine TRACE (Negative); Specific Gravity, Urine >= 1.030 (1.005-1.030)
[2021-11-02 18:49] LABS: Amphetamine/Metha Screen,Urine Negative ng/ml (<1000)
[2021-11-02 18:50] LABS: Barbiturates Screen,Urine Negative ng/ml (<200)
[2021-11-02 18:51] LABS: Benzodiazepines Screen,Urine Negative ng/ml (<200); Cannabinoid Screen,Urine Negative ng/ml (<50)
[2021-11-02 18:52] LABS: Cocaine Screen,Urine Negative ng/ml (<300); Methadone Screen,Urine Negative ng/ml (<300)
[2021-11-02 18:53] LABS: Opiate Screen,Urine Negative ng/ml (<300)
[2021-11-02 18:54] LABS: Bilirubin,Urine 1+ (Negative); Phencyclidine Screen,Urine Negative ng/ml (<25)
[2021-11-02 19:25] LABS: Bacteria,Urine 2+ /lpf
== END 2021-11-02 19:48 | disposition home or self-care (01) ==
LOC: OBOUT 17:30 → OB 17:31
PROVIDERS: PCP Obstetrics & Gynecology; Visit Provider Obstetrics & Gynecology
DX: O47.03 False labor before 37 completed weeks of gestation, third trimester (principal); Z3A.34 34 weeks gestation of pregnancy
CPT/HCPCS: 59025; 80305; 81001; 87086; G0463

== ENCOUNTER → 2021-11-08 16:18 | Outpatient (CLI) | payer MEDICAID, SELFPAY | PROVIDERS: Visit Provider Obstetrics & Gynecology | DX: Z34.90 Encounter for supervision of normal pregnancy, unspecified, unspecified trimester (principal) | CPT/HCPCS: 86403 ==

== ENCOUNTER → 2021-11-25 14:22 | Outpatient (CLI) | payer MEDICAID, SELFPAY ==
--- NOTE | 2021-11-25 14:25 | US_ITS ---
FINAL REPORT CLINICAL HISTORY: LGA Gestational Diabetes FINDINGS: TRANSABDOMINAL ULTRASOUND There is a single live intrauterine gestation. Presentation is cephalic. Placenta is posterior, high, grade 2. Cardiac activity is confirmed at 149 bpm. activity and practice breathing is seen. ALBER: 19 cm MEASUREMENTS: ULTRASOUND AGE: 37 weeks 5 days. GESTATION AGE: 37 weeks 4 days. ESTIMATED WEIGHT: 3017 g GROWTH PERCENTILE: 37% BPD: 9.7 cm corresponding with 39 weeks 5 days. OFD: 11.9 cm. HC: 34.1 cm corresponding with 39 weeks 2 days. AC: 32.4 cm corresponding with 36 weeks 2 days. FL: 6.9 cm corresponding with 35 weeks 3 days. HC/AC: 1.05 CI: 82% FL/BPD: 71% FL/AC: 21% BREATHIN/2 MOVEMENT: 2/2 TONE: 2/2 FLUID VOLUME: 2/2 BPP SCORE: 12/26 IMPRESSION: Single living IUP with an ultrasound age of 37 weeks 5 days. BPP SCORE: / ALBER: 19 cm Reviewed, Interpreted and Dictated by Todd Uriarte III, MD Transcribed by Kamilah Cowan Authenticated and [facility]
== END ==
PROVIDERS: PCP Family Medicine; Visit Provider Obstetrics & Gynecology
DX: O24.419 Gestational diabetes mellitus in pregnancy, unspecified control (principal); O36.60X0 Maternal care for excessive fetal growth, unspecified trimester, not applicable or unspecified
CPT/HCPCS: 76811; 76819; 76820

== ENCOUNTER 2021-11-26 20:48 | Outpatient (CLI) | payer MEDICAID, SELFPAY ==
[2021-11-26 21:00] VITALS: BP 107/68; PULSE 98; RESP 18; TEMP 36.7; O2SAT 99; BMI 50.9
[2021-11-26 21:01] VITALS: BMI 50.9
[2021-11-26 21:06] LABS: Microscopic, Urine URINE MICROSCOPIC (MICROSCOPIC)
[2021-11-26 21:08] LABS: Appearance,Urine CLEAR (Clear); Bilirubin,Urine Negative (Negative); Blood, Urine Negative (Negative); Color,Urine YELLOW (Yellow); Glucose,Urine (UA) Negative (Negative); Ketones,Urine Negative (Negative); Leukocyte Esterase,Urine Negative (Negative); Nitrate,Urine Negative (Negative); Protein,Urine Negative (Negative); Urobilinogen,Urine 0.2 EU/dl (0.2)
[2021-11-26 21:12] LABS: Amorphous Sediment,Urine Trace /lpf; Bacteria,Urine Trace /lpf
[2021-11-26 21:18] LABS: Barbiturates Screen,Urine Negative ng/ml (<200)
[2021-11-26 21:19] LABS: Benzodiazepines Screen,Urine Negative ng/ml (<200)
[2021-11-26 21:20] LABS: Amphetamine/Metha Screen,Urine Negative ng/ml (<1000); Cannabinoid Screen,Urine Negative ng/ml (<50)
[2021-11-26 21:21] LABS: Cocaine Screen,Urine Negative ng/ml (<300); Methadone Screen,Urine Negative ng/ml (<300)
[2021-11-26 21:22] LABS: Opiate Screen,Urine Negative ng/ml (<300)
[2021-11-26 21:23] LABS: Phencyclidine Screen,Urine Negative ng/ml (<25)
== END 2021-11-26 22:40 | disposition home or self-care (01) ==
LOC: OBOUT 20:49 → OB 20:49
PROVIDERS: PCP Family Medicine; Visit Provider Obstetrics & Gynecology
DX: O47.03 False labor before 37 completed weeks of gestation, third trimester (principal); Z3A.37 37 weeks gestation of pregnancy
CPT/HCPCS: 59025; 80305; 81001; G0463

== ENCOUNTER 2021-12-06 19:20 | Outpatient (CLI) | payer MEDICAID, SELFPAY ==
[2021-12-06 19:50] VITALS: BMI 50.1
[2021-12-06 20:00] VITALS: BP 116/67; PULSE 113; RESP 18; TEMP 36.8; O2SAT 100; BMI 50.1
[2021-12-06 20:01] LABS: Microscopic, Urine URINE MICROSCOPIC (MICROSCOPIC)
[2021-12-06 20:03] LABS: Appearance,Urine CLEAR (Clear); Bilirubin,Urine Negative (Negative); Blood, Urine Negative (Negative); Color,Urine YELLOW (Yellow); Glucose,Urine (UA) Negative (Negative); Ketones,Urine Negative (Negative); Leukocyte Esterase,Urine TRACE (Negative); Nitrate,Urine Negative (Negative); Protein,Urine TRACE (Negative); Specific Gravity, Urine 1.015 (1.005-1.030)
[2021-12-06 20:14] LABS: Benzodiazepines Screen,Urine Negative ng/ml (<200)
[2021-12-06 20:15] LABS: Amphetamine/Metha Screen,Urine Negative ng/ml (<1000); Barbiturates Screen,Urine Negative ng/ml (<200)
[2021-12-06 20:16] LABS: Cannabinoid Screen,Urine Negative ng/ml (<50); Cocaine Screen,Urine Negative ng/ml (<300)
[2021-12-06 20:17] LABS: Methadone Screen,Urine Negative ng/ml (<300)
[2021-12-06 20:18] LABS: Opiate Screen,Urine Negative ng/ml (<300); Phencyclidine Screen,Urine Negative ng/ml (<25)
[2021-12-06 20:23] LABS: Bacteria,Urine 2+ /lpf; Mucus,Urine 1+ /lpf
== END 2021-12-06 23:10 | disposition home or self-care (01) ==
LOC: OBOUT 19:37 → OB 19:38
PROVIDERS: PCP Family Medicine; Visit Provider Nurse Practitioner Obstetrics & Gynecology
DX: O60.03 Preterm labor without delivery, third trimester (principal); Z3A.39 39 weeks gestation of pregnancy
CPT/HCPCS: 59025; 80305; 81001; 87086; 96365; G0463

== ENCOUNTER 2021-12-12 15:33 | Inpatient (IN) | payer MEDICAID, SELFPAY ==
[2021-12-12 15:50] VITALS: BMI 50.9
[2021-12-12 16:32] LABS: Microscopic, Urine URINE MICROSCOPIC (MICROSCOPIC)
[2021-12-12 16:32] LABS: Coronavirus 19, PCR Not Detected (NotDetected); Influenza A, PCR Not Detected (NotDetected); Influenza B, PCR Not Detected (NotDetected)
[2021-12-12 16:36] LABS: Appearance,Urine CLEAR (Clear); Bilirubin,Urine Negative (Negative); Blood, Urine Negative (Negative); Color,Urine YELLOW (Yellow); Glucose,Urine (UA) Negative (Negative); Ketones,Urine Negative (Negative); Leukocyte Esterase,Urine 1+ (Negative); Nitrate,Urine Negative (Negative); Protein,Urine TRACE (Negative); Specific Gravity, Urine 1.025 (1.005-1.030)
[2021-12-12 16:50] LABS: Barbiturates Screen,Urine Negative ng/ml (<200); Benzodiazepines Screen,Urine Negative ng/ml (<200)
[2021-12-12 16:51] LABS: Amphetamine/Metha Screen,Urine Negative ng/ml (<1000)
[2021-12-12 16:52] LABS: Cannabinoid Screen,Urine Negative ng/ml (<50); Methadone Screen,Urine Negative ng/ml (<300)
[2021-12-12 16:53] LABS: Cocaine Screen,Urine Negative ng/ml (<300); Opiate Screen,Urine Negative ng/ml (<300)
[2021-12-12 16:54] LABS: Phencyclidine Screen,Urine Negative ng/ml (<25)
[2021-12-12 16:58] LABS: Bacteria,Urine 4+ /lpf; RBC,Urine Occasional #/hpf (0-3)
[2021-12-12 17:05] LABS: Basophils % 0.3 % (0.1-2.0); Eosinophils # 0.2 K/mm3 (0.0-0.4); Eosinophils % 1.7 % (0.1-12.0); Hematocrit 36.5 % (37.0-47.0); Hemoglobin 12.4 g/dL (12.2-16.2); Lymphocytes # 2.2 K/mm3 (0.7-4.5); Lymphocytes % 14.8 % (10-50); Mean Corpuscular Hemoglobin 28.2 pg (27.0-31.2); Mean Corpuscular Volume 82.7 fl (81-99); Mean Platelet Volume 7.9 fl (7.4-10.4); Monocytes # 0.8 K/mm3 (0.1-1.0); Monocytes % 5.7 % (1.7-9.3); Neutrophils # 11.3 K/mm3 (1.8-7.8); Neutrophils % 77.5 % (37.0-80.0); Platelet Count 447 K/mm3 (142-424); Red Blood Count 4.41 M/mm3 (4.20-5.40); Red Cell Distribution Width 13.5 % (11.5-17.5); White Blood Count 14.6 K/mm3 (4.8-10.8)
[2021-12-12 19:17] VITALS: BP 135/68; PULSE 92; RESP 19; TEMP 37; O2SAT 98; BMI 50.9
--- NOTE | 2021-12-13 08:57 | HMH.HP ---
*Admission Date: 12/12/21 *Chief complaint: Post-date induction *History of present illness: 26 yo Admission at 40 0/7 for induction of labor care at [facility]--Dr. Dominique complicated by gestational diabetes managed with PO glyburide Current dose 5mg in am and 7.5mg in pm She has been very compliant with diabetes management with good control of blood sugar Other comorbidities include obesity (BMI 50), Rh negative maternal status, Rubella non-immune maternal status, tobacco abuse and GBS bactiuria Rhogam administration 09/21/21 [facility] History I have reviewed the patient's past medical history: Yes Medical History: Denies:: Cancer, Diabetes Mellitus Type 1, Diabetes Mellitus Type 2, MRSA *Have you ever received a pneumonia vaccine?: No *Have you received a flu vaccine this season?: No Anesthesia experience/problems:: nac Other Surgeries: Yes: Appendectomy, Cholecystectomy. No: Amputation: No Fractures: No - *Social History Smoking Status: Current every day smoker Tobacco Type: cigarettes # Packs/Day (cigarettes): 1 Alcohol Intake: never Substance Use Type: denies use *Occupational Status:: unemployed, disabled *Travel in the last 8 weeks: None Family Hx:: Diabetes : 2 Para: 0 A: 1 Review of Systems - Review of Systems Review of systems:: pertinent systems reviewed and negative unless documented below - *Genitourinary Denies abnormal vaginal bleeding Meds Home Medications Medication Instructions Recorded Confirmed Type fluticasone propionate 50 1 spray INTRANASAL DAILY 02/22/21 12/13/21 History mcg/actuation nasal spray,suspension albuterol sulfate 90 mcg/actuation 1 puff INHALATION NEEDED PRN g 07/11/21 12/13/21 History aerosol inhaler ondansetron 4 mg disintegrating 4 mg PO Q4H PRN #30 tab 07/11/21 12/12/21 Rx tablet Pnv No.95/Ferrous Fum/Folic AC 1 tab PO DAILY 12/12/21 12/13/21 History [ Tablet] ferrous sulfate 325 mg (65 mg 325 mg PO DAILY 12/12/21 12/13/21 History iron) tablet,delayed release glyBURIDE [Diabeta 5mg tablet] 5 mg PO BID 12/12/21 12/13/21 History Allergies Allergy/AdvReac Type Severity Reaction Status Date / Time No Known Allergies Allergy Verified 12/07/21 14:41 Exam Vital signs and Labs for Last 24 Hours: Temp Pulse Resp BP Pulse Ox 97.4 F L 74 22 121/56 L 99 12/13/21 17:44 12/13/21 17:44 12/13/21 17:44 12/13/21 17:44 12/13/21 17:35 Laboratory Results - last 24 hr 12/12/21 16:16: Blood Type O Negative, Antibody Screen Negative 12/13/21 15:04: WBC 17.5 H, RBC 4.45, Hgb 12.9, Hct 36.4 L, MCV 81.9, MCH 29.0, MCHC 35.4, RDW 13.5, Plt Count 429 H, MPV 7.9, Neut % (Auto) 81.0 H, Lymph % (Auto) 11.6, [place] % (Auto) 4.6, Eos % (Auto) 2.2, Baso % (Auto) 0.5, Neut # (Auto) 14.2 H, Lymph # (Auto) 2.1, [place] # (Auto) 0.8, Eos # (Auto) 0.4, Baso # (Auto) 0.1, Total Counted 100, Neutrophils % (Manual) 82 H, Lymphocytes % (Manual) 16, Monocytes % (Manual) 1 L, Basophils % (Manual) 1.0, Platelet Estimate Normal, Anisocytosis 1+ 12/13/21 15:04: PT 10.3, INR 0.90, APTT 30.7 H, Fibrinogen 765 H 12/13/21 15:04: D-Dimer 1.72 H, Sodium 136, Potassium 4.0, Chloride 110 H, Carbon Dioxide 22, Anion Gap 8.0, BUN 4 L, Creatinine 0.50 L, Estimated Creat Clear 174, Estimated GFR 150, Est GFR ( Amer) 182, Glucose 82, Uric Acid 5.5, Calcium 9.3, AST 24, ALT 19 12/13/21 17:43: POC Glucose 86 I & O for Last 24 hours: Intake & Output 12/11/21 12/12/21 12/13/21 12/14/21 11:59 11:59 11:59 11:59 Intake Total 1500 / 1500 Balance 1500 / 1500 Weight 334 lb 15.984 oz Microbiology Reports for the Last 24 Hours: Microbiology 12/12/21 15:45 Urine,Clean Catch Urine Culture - Preliminary NO GROWTH AFTER 24 HOURS - Constitutional no acute distress - *Routine HEENT Exam Head: Present: normocephalic Eye: Absent: conjunctival icterus, scleral injection ENT: Present: muco
--- NOTE | 2021-12-13 11:08 | HMH.LABNOT ---
Labor Note - Subjective: Date: 12/13/21 Time: 11:08 Comment:: Regular contractions Uncomfortable, ready for epidural - Objective: Cervical Dilation:: 4 Effacement:: 70% Station: -2 Comment:: AROM--meconium stained amniotic fluid noted IUPC and FSE placed without difficulty or complication - Fetus: monitoring type:: Internal - Assessment: Patient Problems: All Active Problems 40 weeks gestation of (Acute) GBS (group B streptococcus) UTI complicating (Acute) GDM, class A2 (Acute) Urinary tract infection affecting (Acute) Rubella non-immune status, antepartum (Acute) Tobacco smoking affecting (Acute) Rh negative status during (Acute) (Acute) BMI 45.0-49.9, adult (Acute) Pain in right foot (Acute) Foreign body (Acute) Post-traumatic osteoarthritis (Acute) Avulsion fracture of distal end of fibula (Acute) Right ankle instability (Acute) 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
--- NOTE | 2021-12-13 11:38 | P.PN_ITS ---
[facility] Anesthesia Checklist - Patient Identification Patient Identification: Arm Band - Structural Data Admitted From: Home Planned Operative Procedure/s: Labor Epidural Consent for Planned Operative Procedure(s) Verified: Yes Verified Documents: Surgical Consent, History and Physical - NPO Status Verified Time NPO: 00:00 - Additional verifications Anesthesia Reactions: No - Airway Assessment C-Spine Mobility Assessed: Yes TMJ Mobility Assessed: Yes Dentition: Good Dentition - Neurological Assessment Level of Consciousness: Awake, Alert - Anesthesia Plan Anesthesia Risk discussed: Yes Anesthesia Plan: Verified ASA Class: III Anesthesia Type: Epidural [facility] History I have reviewed the patient's past medical history: Yes Medical History: Denies:: Cancer, Diabetes Mellitus Type 1, Diabetes Mellitus Type 2, MRSA *Have you ever received a pneumonia vaccine?: No *Have you received a flu vaccine this season?: No Anesthesia experience/problems:: nac Other Surgeries: Yes: Appendectomy, Cholecystectomy. No: Amputation: No Fractures: No - *Social History Smoking Status: Current every day smoker Tobacco Type: cigarettes # Packs/Day (cigarettes): 1 Alcohol Intake: never Substance Use Type: denies use *Occupational Status:: unemployed, disabled *Travel in the last 8 weeks: None Family Hx:: Diabetes Para: 0
--- NOTE | 2021-12-13 15:12 | HMH.LABNOT ---
Labor Note - Subjective: Date: 12/13/21 Time: 15:12 Comment:: Regular contractions No change in cervix in spite of adequate contractions over 11 hours Patient and family advised that we should proceed with c section Informed consent obtained and questions answered - Objective: NST:: Reactive Cervical Dilation:: 4 Effacement:: 70% - Assessment: Patient Problems: All Active Problems 40 weeks gestation of (Acute) GBS (group B streptococcus) UTI complicating (Acute) GDM, class A2 (Acute) Urinary tract infection affecting (Acute) Rubella non-immune status, antepartum (Acute) Tobacco smoking affecting (Acute) Rh negative status during (Acute) (Acute) BMI 45.0-49.9, adult (Acute) Pain in right foot (Acute) Foreign body (Acute) Post-traumatic osteoarthritis (Acute) Avulsion fracture of distal end of fibula (Acute) Right ankle instability (Acute) 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
[2021-12-13 15:18] LABS: Basophils # 0.1 K/mm3 (0-0.2); Basophils % 0.5 % (0.1-2.0); Eosinophils # 0.4 K/mm3 (0.0-0.4); Eosinophils % 2.2 % (0.1-12.0); Hematocrit 36.4 % (37.0-47.0); Hemoglobin 12.9 g/dL (12.2-16.2); Lymphocytes # 2.1 K/mm3 (0.7-4.5); Lymphocytes % 11.6 % (10-50); Mean Corpuscular HGB Conc 35.4 g/dL (31.8-35.4); Mean Corpuscular Volume 81.9 fl (81-99); Mean Platelet Volume 7.9 fl (7.4-10.4); Monocytes # 0.8 K/mm3 (0.1-1.0); Monocytes % 4.6 % (1.7-9.3); Neutrophils # 14.2 K/mm3 (1.8-7.8); Platelet Count 429 K/mm3 (142-424); Red Blood Count 4.45 M/mm3 (4.20-5.40); Red Cell Distribution Width 13.5 % (11.5-17.5); White Blood Count 17.5 K/mm3 (4.8-10.8)
[2021-12-13 15:20] LABS: MANUAL DIFFERENTIAL MANUAL DIFFERENTIAL (MANUAL DIFF)
--- NOTE | 2021-12-13 15:25 | PC.NURSE ---
1518: NOTIFIED Bernadette JORDAN RN AND JOSE, SURG, TECH. OF DR. BENITES'S REQUEST FOR AT 1600. Dianne TERRAZAS RN STATED FREDRICK TAYLOR IS AWARE OF PENDING .
[2021-12-13 15:27] LABS: Activated Partial Thrombo Time 30.7 seconds (22.8-30.6); Fibrinogen 765 mg/dL (229.9-363.5); Prothrombin Time 10.3 seconds (10.1-12.5)
[2021-12-13 15:30] LABS: D-Dimer 1.72 ug/mL (0.0-0.5)
[2021-12-13 15:39] LABS: Alanine Aminotransferase 19 U/L (12-78); Aspartate Amino Transferase 24 U/L (14-36); Blood Urea Nitrogen 4 mg/dl (7-17); Calcium 9.3 mg/dl (8.4-10.2); Carbon Dioxide 22 mmol/L (22.0-30.0); Chloride 110 mmol/L (98-107); Creatinine Clearance Estimated 174 mL/min (50-200); Estimated Glomerular Filt Rate 150 ml/min (>60); GFR (African American) 182 ML/MIN (>60); Glucose 82 mg/dl (74-100); Sodium 136 mmol/L (136-145); Uric Acid 5.5 mg/dl (2.5-6.2)
[2021-12-13 15:49] LABS: Anisocytosis 1+; Lymphocytes % 16 % (10-50); Monocytes % 1 % (2-9); Neutrophils % 82 % (42-76); Platelet Estimate Normal; Total Cells Counted 100
--- NOTE | 2021-12-13 16:54 | SUR.OPER ---
1645-viable infant male born at this time
[2021-12-13 17:35] VITALS: BP 121/56; PULSE 74; RESP 22; TEMP 36.3; O2SAT 99
--- NOTE | 2021-12-13 17:43 | HMH.ANESI ---
[facility] Anesthesia Record Part I Intake, IV Amount: 1,500 Estimated blood loss (mL): 700 Urine output (mL): 0 Blood Pressure: 121/56 SaO2: 99 Pulse Rate: 74 Respiratory Rate: 22 Temperature: 97.4 F Patient is:: Awake Stable to PACU at:: 17:35
[2021-12-13 17:44] VITALS: BP 121/56; PULSE 74; RESP 22; TEMP 36.3; O2SAT 99
[2021-12-13 17:45] VITALS: BP 117/68; PULSE 64; RESP 18; O2SAT 99
[2021-12-13 17:51] LABS: POC Glucose,Bedside 86 (70-110)
[2021-12-13 17:55] VITALS: BP 123/73; PULSE 70; RESP 16; O2SAT 100
[2021-12-13 18:05] VITALS: BP 114/55; PULSE 65; RESP 18; TEMP 36.9; O2SAT 100
--- NOTE | 2021-12-13 18:17 | P.OP_ITS ---
Date of procedure: 12/13/21 Pre-op Diagnosis:: 1. 40 1/7 weeks 2. GDMA2 3. Failure to progress in labor 4. BMI 51 5. Meconium stained amniotic fluid Post-op Diagnosis:: same Procedure performed:: Low Transverse C Section Surgeon:: Berenice Dominique MD Site Acquisition Manager(s):: Joseph Lujan MD MANAGER PERFORMANCE IMPROVEMENT:: Samantha Barrera Anesthesia: spinal Estimated blood loss (mL): 700 Operative findings:: Live born, vigorous male infant in vertex presentation Infant weight 10# 2oz apgars 8 (1 min) and 9 (5 min) Normal appearing uterus, fallopian tubes and ovaries Operative note:: The patient was taken to the OR and spinal was administered without difficulty. Previous epidural was not working and had been removed at time decision was made for c section. She was then prepped and draped in normal sterile fashion. A pfannenstiel skin incision was made with the scalpel and carried down to the fascia. The fascia was incised in the midline and sharply dissected off the rectus muscles. The muscles were in the midline and the peritoneum was entered sharply and extended bluntly. The Olivier-O self retaining retractor was placed in the abdomen and a bladder flap was created. The uterus was incised in the lower uterine segment in a transverse fashion and extended bluntly. The infant was delivered in controlled fashion, without complication or shoulder dystocia. A single nuchal cord was reduced at time of delivery. The infant was vigorous at and handed to awaiting radio script writer and nursing [facility] for evaluation after the umbilical cord was clamped and cut. Cord blood was collected and a cord segment was preserved. The placenta was manually extracted and noted to be intact. The uterus was repaired with 0-vicryl in a running/locked fashion. A second layer was placed for hemostasis. The bladder flap was closed with 2-0 vicryl in a running fashion. The peritoneum was closed with 2-0 vicryl in a running fashion. The fascia was closed with #1 vicryl in a running fashion. The subcutaneous fat was closed with 2-0 vicryl in an interrupted fashion. The skin was closed with 2-0 stratafix in a subcuticular fashion. The patient tolerated the procedure well. Sponge, lap, needle and instrument counts were correct x 2. She was taken to PACU awake and in stable condition. Condition: stable Disposition: PACU Specimens:: Placenta Complications:: None
--- NOTE | 2021-12-13 18:26 | PC.NURSE ---
1801-detailed report called to CATRINA Tompkins 1805-pt transported to OB room 274 via hospital bed w/amari rails up and left in care of CATRINA Tompkins, family at bedside, vss, pt stable
[2021-12-14 07:15] LABS: Hemoglobin 11.1 g/dL (12.2-16.2)
[2021-12-14 08:01] VITALS: BP 122/86; PULSE 75; RESP 18; TEMP 36.7; O2SAT 99
--- NOTE | 2021-12-14 08:14 | HMH.ACPN2 ---
Internal Medicine - PN: Subj *Date: 12/14/21 *Time: 08:23 Interval history: POD # 1 s/p PLTCS Patient resting comfortably in bed. Pain controlled. Denies fever/chills, chest pain and shortness of breath. Tolerating regular diet. She is bottle feeding but states she would like to breast feed. Voiding without difficulty. Passing flatus. Denies headaches and leg swelling. Exam Vital signs and Labs for Last 24 Hours: Temp Pulse Resp BP Pulse Ox 98.4 F 65 18 114/55 L 100 12/13/21 18:05 12/13/21 18:05 12/13/21 18:05 12/13/21 18:05 12/13/21 18:05 Laboratory Results - last 24 hr 12/12/21 16:16: Blood Type O Negative, Antibody Screen Negative, Crossmatch (AHG) See Detail 12/13/21 15:04: WBC 17.5 H, RBC 4.45, Hgb 12.9, Hct 36.4 L, MCV 81.9, MCH 29.0, MCHC 35.4, RDW 13.5, Plt Count 429 H, MPV 7.9, Neut % (Auto) 81.0 H, Lymph % (Auto) 11.6, [place] % (Auto) 4.6, Eos % (Auto) 2.2, Baso % (Auto) 0.5, Neut # (Auto) 14.2 H, Lymph # (Auto) 2.1, [place] # (Auto) 0.8, Eos # (Auto) 0.4, Baso # (Auto) 0.1, Total Counted 100, Neutrophils % (Manual) 82 H, Lymphocytes % (Manual) 16, Monocytes % (Manual) 1 L, Basophils % (Manual) 1.0, Platelet Estimate Normal, Anisocytosis 1+ 12/13/21 15:04: PT 10.3, INR 0.90, APTT 30.7 H, Fibrinogen 765 H 12/13/21 15:04: D-Dimer 1.72 H, Sodium 136, Potassium 4.0, Chloride 110 H, Carbon Dioxide 22, Anion Gap 8.0, BUN 4 L, Creatinine 0.50 L, Estimated Creat Clear 174, Estimated GFR 150, Est GFR ( Amer) 182, Glucose 82, Uric Acid 5.5, Calcium 9.3, AST 24, ALT 19 12/13/21 17:43: POC Glucose 86 12/14/21 06:20: Hgb 11.1 L D, Hct 32.0 L I & O for Last 24 hours: Intake & Output 12/11/21 12/12/21 12/13/21 12/14/21 23:59 23:59 23:59 23:59 Intake Total 1500 / 1500 Balance 1500 / 1500 Weight 334 lb 15.984 oz Microbiology Reports for the Last 24 Hours: Microbiology 12/12/21 15:45 Urine,Clean Catch Urine Culture - Preliminary - Constitutional no acute distress, morbidly obese - *Routine HEENT Exam Head: Present: normocephalic Eye: Absent: conjunctivae pink ENT: Present: mucous membranes moist. Absent: dentition normal (poor dentition) - *Routine Respiratory Exam Present: CTA bilaterally - *Routine Cardiovascular Exam Present: RRR - *Routine Abdominal Exam Present: soft, normoactive bowel sounds. Absent: distended Comments: appropriate tenderness to palpation Dressing over incision with no drainage - *Routine Extremities Exam Present: full ROM. Absent: edema, calf tenderness - *Routine Neurological Exam Present: alert, oriented X3 Assessment and Plan (1) 40 weeks gestation of Status: Acute Category: Medical Code(s): Z3A.40 - 40 weeks gestation of (2) GDM, class A2 Status: Acute Category: Medical Code(s): O24.419 - Gestational diabetes mellitus in , unspecified control (3) Morbid obesity with body mass index (BMI) of 50.0 to 59.9 in adult Status: Acute Category: Medical Code(s): E66.01 - Morbid (severe) obesity due to excess calories; Z68.43 - Body mass index [BMI] 50.0-59.9, adult (4) Rh negative status during Problem details: Rhogam 09/21/21 Status: Acute Qualifiers: Trimester: unspecified trimester Qualified Code(s): O26.899 - Other specified related conditions, unspecified trimester; Z67.91 - Unspecified blood type, Rh negative Category: Medical Code(s): O26.899 - Other specified related conditions, unspecified trimester; Z67.91 - Unspecified blood type, Rh negative (5) Rubella non-immune status, antepartum Status: Acute Category: Medical Code(s): O09.899 - Supervision of other high risk pregnancies, unspecified trimester; Z28.39 - Other underimmunization status (6) Tobacco smoking affecting Status: Acute Qualifiers: Trimester: unspecified trimester Qualified Code(s): O99.330 - Smoking (tobacco) complicating , unspecified tri
--- NOTE | 2021-12-14 09:35 | SW/DCPLANNER ---
I received referral regarding need of resources for this patient. Patient delivered male (John Cordova) on 12/13/2021. 's father (Juan Cordova) is involved per patient but was not present at time of my visit. Patient, Juan and will reside at [address] [place] [address]. Patient's contact number is [phone]. This is patient and father's first child. Patient is established with [facility] and is interested in HANDS program. I will reach out to Russel Fuller with HANDS program for this patient. Patient stated that she has the following items at home: crib, carseat, clothing, diapers and bottle feeding. Patient is expected to discharge home tomorrow or Sunday12/15/21-12/16/21. Patient has no further needs at this time.
[2021-12-14 15:53] VITALS: BP 130/72; PULSE 67; RESP 18; TEMP 36.6; O2SAT 99
[2021-12-15 08:00] VITALS: BP 135/82; PULSE 72; RESP 18; TEMP 36.7; O2SAT 100
--- NOTE | 2021-12-15 08:51 | HMH.DCSUM ---
General - General Admission date:: 12/12/21 Discharge date: 12/15/21 HPI HPI: 26 yo Admission at 40 0/7 for induction of labor care at [facility]--Dr. Dominique complicated by gestational diabetes managed with PO glyburide Current dose 5mg in am and 7.5mg in pm She has been very compliant with diabetes management with good control of blood sugar Other comorbidities include obesity (BMI 50), Rh negative maternal status, Rubella non-immune maternal status, tobacco abuse and GBS bactiuria Rhogam administration 09/21/21 Hospital Course Hospital Course: Postop/ course uncomplicated Mother desires discharge on POD #2 because of infant transfer to for persistent oxygen requirement She is discharged in stable condition She is tolerating a regular diet, ambulating and voiding without difficulty Lochia is appropriate and pain control sufficient Hgb 11.1 postop (12.4 at admission) Rhogam given for maternal prophylaxis Objective Vital signs: Temp Pulse Resp BP Pulse Ox 97.9 F 67 18 130/72 99 12/14/21 15:53 12/14/21 15:53 12/14/21 15:53 12/14/21 15:53 12/14/21 15:53 Narrative: CONSTITUTIONAL: no acute distress HEENT: mucous membranes moist PULMONARY: breathing unlabored without audible wheezes CV: no tachycardia or visible JVD; normal LE peripheral pulses ABD: soft, ND; appropriately tender but no rebound/guarding : fundus firm below umbilicus SKIN: incision well approximated with no drainage, erythema or induration EXT: 1+ edema LEs NEURO: alert/oriented, no altered mental status PSYCH: appropriate mood and demeanor without anxiety/depression Results Labs on day of discharge: Preliminary micro results at discharge 12/12/21 15:45 Urine Culture - Preliminary Urine,Clean Catch DS: Diagnosis - Discharge Diagnosis (1) 40 weeks gestation of Status: Acute (2) GDM, class A2 Status: Acute (3) Morbid obesity with body mass index (BMI) of 50.0 to 59.9 in adult Status: Acute (4) Rh negative status during Status: Acute Problem details: Rhogam 09/21/21 (5) Rubella non-immune status, antepartum Status: Acute (6) Tobacco smoking affecting Status: Acute (7) GBS (group B streptococcus) UTI complicating Status: Acute (8) Delivery by section Status: Acute (9) Acute blood loss anemia Status: Acute Discharge Plan - Patient Discharge Instructions ACTIVITY: Continue current activity DIET: regular diet Additional Instructions: Nothing in the vagina for 6 weeks No tub baths No heavy lifting or driving Drink plenty of fluids Patient Instructions: Depression, Hemorrhage, DI for , DI for Pre-eclampsia, [facility] Post Discharge Instructions, Preventing the Spread of Coronavirus Discharge Instructions - Follow up Plan Follow up with: Berenice Dominique MD [Staff Physician] - Disposition: Home, Self-Care Condition at discharge:: Stable Home Medications: Home Medications Medication Instructions Recorded Confirmed Type fluticasone propionate 50 1 spray INTRANASAL DAILY 02/22/21 12/13/21 History mcg/actuation nasal spray,suspension albuterol sulfate 90 mcg/actuation 1 puff INHALATION NEEDED PRN g 07/11/21 12/13/21 History aerosol inhaler ondansetron 4 mg disintegrating 4 mg PO Q4H PRN #30 tab 07/11/21 12/12/21 Rx tablet Pnv No.95/Ferrous Fum/Folic AC 1 tab PO DAILY 12/12/21 12/13/21 History [ Tablet] ferrous sulfate 325 mg (65 mg 325 mg PO DAILY 12/12/21 12/13/21 History iron) tablet,delayed release glyBURIDE [Diabeta 5mg tablet] 5 mg PO BID 12/12/21 12/13/21 History Ibuprofen [Motrin 400mg 800 mg PO Q6HP PRN #40 tab 12/15/21 Rx tablet] Oxycodone HCl [OxyIR 5mg tablet] 10 mg PO Q6HP PRN #30 tab 12/15/21 Rx Prescriptions/Medication Reconciliation: New
[2022-02-15 14:06] LABS: POC Glucose,Bedside 116 (70-110)
[2022-02-15 14:06] LABS: POC Glucose,Bedside 71 (70-110)
[2022-02-15 14:06] LABS: POC Glucose,Bedside 135 (70-110)
[2022-02-15 14:06] LABS: POC Glucose,Bedside 97 (70-110)
[2022-02-15 14:06] LABS: POC Glucose,Bedside 66 (70-110)
== END 2021-12-15 10:55 | disposition home or self-care (01) | DRG 787 ==
PROVIDERS: Admitting Provider Obstetrics & Gynecology; PCP Family Medicine; Referring Provider Obstetrics & Gynecology; Visit Provider Obstetrics & Gynecology
PROC: (CPT 59514; principal; 2021-12-13 16:00)
DX: O24.425 Gestational diabetes mellitus in childbirth, controlled by oral hypoglycemic drugs (principal); D62 Acute posthemorrhagic anemia; N39.0 Urinary tract infection, site not specified; O23.43 Unspecified infection of urinary tract in pregnancy, third trimester; O99.334 Smoking (tobacco) complicating childbirth; Z3A.40 40 weeks gestation of pregnancy; Z37.0 Single live birth; O24.419 Gestational diabetes mellitus in pregnancy, unspecified control; O90.81 Anemia of the puerperium; O69.81X0 Labor and delivery complicated by cord around neck, without compression, not applicable or unspecified; F17.210 Nicotine dependence, cigarettes, uncomplicated; O99.214 Obesity complicating childbirth; E66.01 Morbid (severe) obesity due to excess calories
CPT/HCPCS: 59514; 36415; 59025; 80048; 80305; 81001; 82962; 84450; 84460; 84550; 85007; 85014; 85018; 85025; 85378; 85384; 85461; 85610; 85730; 86850; 87086; 94761; C1758; C9803; G0283; J2405; J2505; J2790; U0003; U0005

== ENCOUNTER 2023-01-15 18:41 | Emergency (ER) | payer MEDICAID, SELFPAY ==
--- NOTE | 2023-01-15 18:44 | XR_ITS ---
PROCEDURE INFORMATION: Exam: XR Right Ankle Exam date and time: 01/15/2023 6:49 PM Age: 28 years old Clinical indication: Pain; Ankle; Right TECHNIQUE: Imaging protocol: Radiologic exam of the right ankle. Views: 3 or more views. COMPARISON: CR XR ANKLE RT MIN 3V 02/21/2021 12:10 AM FINDINGS: Bones/joints: No acute fracture or dislocation. Soft tissues: Normal. IMPRESSION: No acute findings.
[2023-01-15 18:45] VITALS: BP 123/85; PULSE 81; RESP 20; TEMP 36.6; O2SAT 100; BMI 42.5
--- NOTE | 2023-01-15 18:51 | EXP.UTC ---
Discharge Plan Disposition Patient Disposition: Home, Self-Care Condition: Good Prescriptions Prescriptions: New ibuprofen [IBU] 800 mg tablet 800 mg PO Q8HP PRN (Reason: Moderate Pain) Qty: 30 0RF No Action fluticasone propionate 50 mcg/actuation spray,suspension 1 spray NS DAILY albuterol sulfate [ProAir HFA] 90 mcg/actuation HFA aerosol inhaler 1 puff IH NEEDED PRN (Reason: asthma) Patient Comments: INHALE 2 PUFFS BY MOUTH EVERY 4 TO 6 HOURS NEEDED. MAY USE 15 MINUTES BEFORE EXERCISE ondansetron 4 mg tablet,disintegrating 4 mg PO Q4H PRN (Reason: nausea and vomiting) Qty: 30 4RF PNV cmb#95-ferrous fumarate-FA 28 mg iron- 800 mcg tablet 1 tab PO DAILY Qty: 30 3RF norgestimate-ethinyl estradiol [Sprintec (28)] 0.25-35 mg-mcg tablet 1 tab PO DAILY Qty: 28 6RF ferrous sulfate 325 mg (65 mg iron) tablet,delayed release (DR/EC) 325 mg PO DAILY ibuprofen 400 MG tablet 800 mg PO Q6HP PRN (Reason: Mild To Moderate Pain) Qty: 40 0RF Referrals Follow up/Referrals: Rene Moura MD [Primary Care Provider] - See instructions Lina Mcpherson DPM [Staff Physician] - See instructions Activity Restrictions/Add. Instructions Additional Instructions/Restrictions: Rest the extremity, apply ice for 15 minutes as tolerated three or four times per day, Wear the ginger wrap for compression, Elevate the extremity as tolerated while you are resting. Take ibuprofen for pain. I sent in a prescription to your pharmacy. Follow up with Dr. Mcpherson (podiatry). I put in a referral but you need to call her office and schedule an appointment. Follow up with your regular doctor. GO TO THE ER FOR ANY WORSENING SYMPTOMS Clinical Impressions Clinical Impression: Sprain of ankle, right, Pain in right ankle Instructions Patient Instructions: Ankle Sprain, DI for Ankle Sprain, How to Apply an Elastic Wrap on Ankle Discharge ED Provider: Canelo Harris [facility] HPI General Stated complaint: right ankle pain Time Seen by Provider: 01/15/23 18:51 History of Present Illness Provider Complaint: She states that she twisted her right ankle earlier today. She denies falling or any additional injury. She states that she is having right ankle pain and swelling. Her pain is worse when she bears weight or walks on it. Related Data Home Medications Medication Instructions Recorded Confirmed fluticasone propionate 50 1 spray intranasal DAILY Allergy 02/22/21 01/26/22 mcg/actuation nasal symptoms spray,suspension albuterol sulfate 90 mcg/actuation 1 puff inhalation NEEDED PRN 07/11/21 01/26/22 aerosol inhaler (ProAir HFA) asthma ferrous sulfate 325 mg (65 mg 325 mg PO DAILY Iron supplement 12/12/21 01/26/22 iron) tablet,delayed release Previous Rx's Medication Instructions Recorded ondansetron 4 mg disintegrating 4 mg PO Q4H PRN nausea and 07/11/21 tablet vomiting #30 tabs ibuprofen 400 mg tablet 800 mg PO Q6HP PRN Mild To 12/15/21 Moderate Pain #40 tabs vit no.95-ferrous 1 tab PO DAILY Supplement #30 tabs 02/07/22 fumarate 28 mg-folic acid 800 mcg tablet norgestimate 0.25 mg-ethinyl 1 tab PO DAILY #28 tabs 04/21/22 estradiol 35 mcg tablet (Sprintec (28)) ibuprofen 800 mg tablet (IBU) 800 mg PO Q8HP PRN Moderate Pain 01/15/23 #30 tabs Allergies Allergy/AdvReac Type Severity Reaction Status Date / Time No Known Allergies Allergy Verified 01/26/22 14:57 [facility] Disclaimer: The information contained in this section may have been updated after the patient was seen, as this information can be updated by other users. Social History Smoking Status: Current every day smoker tobacco type: cigarettes packs per day: 1 alcohol intake: never substance use type: denies use current occupational status: unemployed and disabled Travel in the last 8 weeks: None ROS Obtained: Yes All syst
[2023-01-15 19:00] VITALS: BP 123/85; PULSE 81; RESP 20; TEMP 36.6; O2SAT 100
== END 2023-01-15 19:58 | disposition home or self-care (01) ==
PROVIDERS: Emergency Provider Nurse Practitioner Family; PCP Family Medicine
DX: S93.401A Sprain of unspecified ligament of right ankle, initial encounter (principal); M25.571 Pain in right ankle and joints of right foot; F17.210 Nicotine dependence, cigarettes, uncomplicated; X50.1XXA Overexertion from prolonged static or awkward postures, initial encounter
CPT/HCPCS: 73610; 99212; 99214; G0463

== ENCOUNTER 2023-02-06 22:00 | Emergency (ER) | payer MEDICAID, SELFPAY ==
[2023-02-06 22:00] VITALS: BP 125/81; PULSE 116; RESP 21; TEMP 37.1; O2SAT 95; BMI 49.4
[2023-02-06 22:11] LABS: Microscopic, Urine URINE MICROSCOPIC (MICROSCOPIC)
[2023-02-06 22:13] LABS: Appearance,Urine CLEAR (Clear); Bilirubin,Urine Negative (Negative); Blood, Urine Negative (Negative); Color,Urine YELLOW (Yellow); Glucose,Urine (UA) Negative (Negative); Ketones,Urine Negative (Negative); Leukocyte Esterase,Urine Negative (Negative); Nitrate,Urine Negative (Negative); PH,Urine 7.5 (5.0-8.5); Protein,Urine Negative (Negative); Urobilinogen,Urine 0.2 EU/dl (0.2)
[2023-02-06 22:25] LABS: Chloride 107 mmol/L (98-107); Sodium 143 mmol/L (136-145)
[2023-02-06 22:27] LABS: Blood Urea Nitrogen 11 mg/dl (7-17); Creatinine Clearance Estimated 107 mL/min (50-200); Estimated Glomerular Filt Rate 86 ml/min (>60); GFR (African American) 104 ML/MIN (>60)
[2023-02-06 22:28] LABS: Alanine Aminotransferase 32 U/L (12-78); Albumin/Globulin Ratio 1.1 (1.1-1.8); Alkaline Phosphatase 68 U/L (38-126); Aspartate Amino Transferase 28 U/L (14-36); Calcium 9.4 mg/dl (8.4-10.2); Carbon Dioxide 25 mmol/L (22.0-30.0); Globulin 3.5 g/dL (1.3-3.2); Glucose 123 mg/dl (74-100); Lipase 148 U/L (23-300); Total Protein,Serum 7.5 g/dl (6.3-8.2)
[2023-02-06 22:29] LABS: Lactic Acid 1.7 mmol/L (0.7-2.1)
[2023-02-06 22:34] LABS: Bilirubin,Total 0.1 mg/dl (0.2-1.3)
[2023-02-06 22:36] LABS: Basophils # 0.2 K/mm3 (0-0.2); Basophils % 1.3 % (0.1-2.0); Eosinophils # 0.6 K/mm3 (0.0-0.4); Eosinophils % 4.8 % (0.1-12.0); Hematocrit 45.8 % (37.0-47.0); Hemoglobin 14.6 g/dL (12.2-16.2); Lymphocytes # 4.9 K/mm3 (0.7-4.5); Lymphocytes % 36.3 % (10-50); Mean Corpuscular HGB Conc 31.9 g/dL (31.8-35.4); Mean Corpuscular Hemoglobin 26.9 pg (27.0-31.2); Mean Corpuscular Volume 84.4 fl (81-99); Mean Platelet Volume 7.8 fl (7.4-10.4); Monocytes # 0.5 K/mm3 (0.1-1.0); Monocytes % 3.4 % (1.7-9.3); Neutrophils # 7.3 K/mm3 (1.8-7.8); Neutrophils % 54.2 % (37.0-80.0); Platelet Count 387 K/mm3 (142-424); Red Blood Count 5.43 M/mm3 (4.20-5.40); Red Cell Distribution Width 13.6 % (11.5-17.5); White Blood Count 13.4 K/mm3 (4.8-10.8)
[2023-02-06 23:15] LABS: HCG,Quantitative < 2 mIU/ml (0-5.42)
[2023-02-06 23:24] LABS: Bacteria,Urine Trace /lpf; RBC,Urine Occasional #/hpf (0-3); WBC,Urine Occasional #/hpf (0-3)
--- NOTE | 2023-02-06 23:27 | HMH.EDGENADL ---
Discharge Plan Disposition Patient Disposition: Home, Self-Care Prescriptions Prescriptions: No Action cetirizine 10 mg tablet 10 mg PO DAILY Patient Comments: TAKE 1 TABLET BY MOUTH EVERY DAILY montelukast 10 mg tablet 10 mg PO DAILY Patient Comments: TAKE 1 TABLET BY MOUTH EVERY DAY escitalopram oxalate 10 mg tablet 10 mg PO DAILY Patient Comments: TAKE 1 TABLET BY MOUTH EVERY DAY DIRECTED Referrals Follow up/Referrals: Provider,Referral, MD [Primary Care Provider] - See instructions Activity Restrictions/Add. Instructions Additional Instructions/Restrictions: Please follow-up with your primary care provider. Please return to the emergency department if you develop any new or worsening symptoms or become concerned for your health. Clinical Impressions Clinical Impression: Abdominal pain Qualifiers: Abdominal location: left upper quadrant Qualified Code(s): R10.12 - Left upper quadrant pain Ovarian cyst Qualifiers: Laterality: left Qualified Code(s): N83.202 - Unspecified ovarian cyst, left side Instructions Patient Instructions: DI for Acute Abdominal Pain Discharge ED Provider: Eber Hector General Adult HPI <Paco Still MD - Last Filed: 02/06/23 23:31> General Chief complaint: Abdominal Pain Stated complaint: abdominal pain Time Seen by Provider: 02/06/23 22:00 Mode of Arrival: EMS Source of Information: Patient Limitations: No Limitations Description of Symptoms (Recalled from ER Triage Doc. by RN): 28 F presents from home via EMS for LUQ pain that radiates to her left flank with nausea and vomiting. The n/v began 2 nights ago; however, the pain began approximately 30 minutes ago. History of Present Illness HPI narrative: 28-year-old female with no relevant medical history presenting with left upper quadrant pain. Patient states that started 2 days prior to arrival. Started with pain, then nausea and nonbloody/nonbilious vomiting. Starts in left upper quadrant, radiates to left flank. Associated with peeing blood clots. Pain is 6-7 out of 10, stabbing. No fevers or chills, dysuria, diarrhea, constipation, vaginal discharge or bleeding, or any other symptoms. States that the last time she had pain like this she found out she was Related Data Home Medications Medication Instructions Recorded Confirmed cetirizine 10 mg tablet 10 mg PO DAILY Allergy Symptoms 02/06/23 02/06/23 escitalopram oxalate 10 mg tablet 10 mg PO DAILY Depression 02/06/23 02/06/23 montelukast 10 mg tablet 10 mg PO DAILY Allergy Symptoms 02/06/23 02/06/23 Allergies Allergy/AdvReac Type Severity Reaction Status Date / Time No Known Allergies Allergy Verified 01/26/22 14:57 PFSH <Paco Still MD - Last Filed: 02/06/23 23:31> PFS Disclaimer: The information contained in this section may have been updated after the patient was seen, as this information can be updated by other users. Social History Smoking Status: Current every day smoker tobacco type: cigarettes packs per day: 1 alcohol intake: never substance use type: denies use current occupational status: unemployed and disabled Travel in the last 8 weeks: None <Paco Still MD - Last Filed: 02/06/23 23:31> ROS Obtained: Yes All systems reviewed & no additional complaints except as documented Physical Exam <Paco Still MD - Last Filed: 02/06/23 23:31> General General appearance: alert, in no apparent distress and other ( ) Head Head exam: atraumatic and normocephalic Eye Eye exam: Present normal appearance, PERRL and EOMI ENT ENT exam: Present mucous membranes moist Neck Neck exam: Present normal inspection, full ROM and trachea midline Respiratory Respiratory exam: Absent respiratory distress, wheezes, stridor, accessory muscle use or prolonged expiratory phase Cardiovascular Cardiovascular exam: Present regular rate and normal
--- NOTE | 2023-02-07 | CT_ITS ---
PROCEDURE INFORMATION: Exam: CT Abdomen And Pelvis With Contrast Exam date and time: 02/07/2023 12:23 AM Age: 28 years old Clinical indication: Abdominal pain; Additional info: Luq pain radiating to flank TECHNIQUE: Imaging protocol: Computed tomography of the abdomen and pelvis with contrast. Radiation optimization: All CT scans at this facility use at least one of these dose optimization techniques: automated exposure control; mA and/or kV adjustment per patient size (includes targeted exams where dose is matched to clinical indication); or iterative reconstruction. Contrast material: ISOVUE; Contrast volume: 75 ml; Contrast route: IV; REPORTING DATA: Count of CT and Cardiac NM exams in prior 12 months: This patient has received 0 known CTs and 0 known cardiac nuclear medicine studies in the 12 months prior to the current study. COMPARISON: CT ABDOMEN PELVIS W CON 06/29/2021 7:53 PM FINDINGS: Liver: Mild fatty liver infiltration. Liver measures 20 cm. Gallbladder and bile ducts: Not visualized. Pancreas: Normal. No ductal dilation. Spleen: Normal. No splenomegaly. Adrenal glands: Normal. No mass. Kidneys and ureters: Normal. No hydronephrosis. Stomach and bowel: Scattered colonic diverticula without pericolonic fat stranding. Appendix: No evidence of appendicitis. Intraperitoneal space: Unremarkable. No free air. No significant fluid collection. Vasculature: Unremarkable. No abdominal aortic aneurysm. Lymph nodes: Unremarkable. No enlarged lymph nodes. Urinary bladder: Unremarkable as visualized. Reproductive: Probable left ovarian cyst measuring 2.3 x 2.6 cm. Ovaries not visualized. Bones/joints: Unremarkable. No acute fracture. Soft tissues: Unremarkable. IMPRESSION: 1. Probable left ovarian cyst. 2. Colonic diverticulosis. 3. Hepatomegaly with fatty infiltration.
[2023-02-07 01:28] VITALS: BP 139/85; PULSE 84; RESP 17; TEMP 36.9; O2SAT 95
== END 2023-02-07 01:28 | disposition home or self-care (01) ==
PROVIDERS: Emergency Medicine; Emergency Provider Emergency Medicine
DX: N83.202 Unspecified ovarian cyst, left side (principal); R10.12 Left upper quadrant pain; F17.210 Nicotine dependence, cigarettes, uncomplicated
CPT/HCPCS: 74177; 80053; 81001; 83605; 83690; 84702; 85025; 96361; 96374; 96375; 99285; J0131; J2405; Q9967

== ENCOUNTER 2023-03-14 17:47 | Emergency (ER) | payer MEDICAID, SELFPAY ==
[2023-03-14 17:48] VITALS: BP 146/81; PULSE 93; RESP 18; TEMP 37.1; O2SAT 97; BMI 48.4
--- NOTE | 2023-03-14 18:01 | EXP.UTC ---
Discharge Plan Disposition Patient Disposition: Home, Self-Care Condition: Good Prescriptions Prescriptions: New amoxicillin [amoxicillin] 875 mg tablet 875 mg PO Q12H Qty: 20 0RF methylprednisolone 4 mg Tablets,Dose Pack 4 mg PO DIRECTED Qty: 21 0RF No Action cetirizine 10 mg tablet 10 mg PO DAILY Patient Comments: TAKE 1 TABLET BY MOUTH EVERY DAILY montelukast 10 mg tablet 10 mg PO DAILY Patient Comments: TAKE 1 TABLET BY MOUTH EVERY DAY escitalopram oxalate 10 mg tablet 10 mg PO DAILY Patient Comments: TAKE 1 TABLET BY MOUTH EVERY DAY DIRECTED atorvastatin 20 mg tablet 20 mg PO DAILY Patient Comments: TAKE 1 TABLET BY MOUTH EVERY DAY AT BEDTIME Referrals Follow up/Referrals: Rene Moura MD [Primary Care Provider] - See instructions Activity Restrictions/Add. Instructions Additional Instructions/Restrictions: Drink plenty of fluids. Take tylenol or ibuprofen for pain or fever. Take the medications as directed. Follow up with your regular doctor. GO TO THE ER FOR ANY WORSENING SYMPTOMS Clinical Impressions Clinical Impression: Pharyngitis Instructions Patient Instructions: Strep Throat, DI for Strep Throat Discharge ED Provider: Canelo Harris [facility] General Stated complaint: sore throat Time Seen by Provider: 03/14/23 18:00 History of Present Illness Provider Complaint: She states that for the past 2 days she has had sore throat, chills, body aches and low grade fever. Related Data Home Medications Medication Instructions Recorded Confirmed cetirizine 10 mg tablet 10 mg PO DAILY Allergy Symptoms 02/06/23 03/14/23 escitalopram oxalate 10 mg tablet 10 mg PO DAILY Depression 02/06/23 03/14/23 montelukast 10 mg tablet 10 mg PO DAILY Allergy Symptoms 02/06/23 03/14/23 atorvastatin 20 mg tablet 20 mg PO DAILY 03/14/23 03/14/23 Previous Rx's Medication Instructions Recorded amoxicillin 875 mg tablet 875 mg PO Q12H #20 tabs 03/14/23 methylprednisolone 4 mg tablets in 4 mg PO DIRECTED #21 tabs 03/14/23 a dose pack Allergies Allergy/AdvReac Type Severity Reaction Status Date / Time No Known Allergies Allergy Verified 03/14/23 18:11 [facility] Disclaimer: The information contained in this section may have been updated after the patient was seen, as this information can be updated by other users. Social History Smoking Status: Current every day smoker tobacco type: cigarettes packs per day: 1 alcohol intake: never substance use type: denies use current occupational status: unemployed and disabled Travel in the last 8 weeks: None ROS Obtained: Yes All systems reviewed & no additional complaints except as documented Constitutional Constitutional: Reports chills and Reports fever(s) Eyes Eyes: Denies eye discharge ENT Ears, Nose, Mouth, and Throat: Reports as per HPI Cardiovascular Cardiovascular: Denies chest pain Respiratory Respiratory: Denies chest congestion and Reports cough Gastrointestinal Gastrointestingal: Reports nausea; Denies abdominal pain, constipation, cramping, diarrhea or vomiting Musculoskeletal Musculoskeletal: Denies arthralgias Integumentary/Breasts Skin/Breast: Denies rash Neurologic Neurologic: Denies paresthesias Physical Exam General General appearance: alert and in no apparent distress Head Head exam: atraumatic, normocephalic and normal inspection Eye Eye exam: Present normal appearance, PERRL and EOMI ENT ENT exam: Present mucous membranes moist and normal external ear exam Expanded ENT Exam TM/Canal exam: Bilateral TM: erythema and bulging Nose exam: Absent sinus tenderness Mouth exam: Present normal external inspection; Absent drooling Teeth exam: Present normal inspection Throat exam: Present tonsillar erythema, tonsillomegaly and tonsillar exudate Neck Neck exam: Present normal inspec
[2023-03-14 18:08] LABS: UTC Strep Screen (Rapid) Negative (Negative)
[2023-03-14 18:43] VITALS: BP 146/81; PULSE 93; RESP 18; TEMP 37.1; O2SAT 97
== END 2023-03-14 18:43 | disposition home or self-care (01) ==
PROVIDERS: Emergency Provider Nurse Practitioner Family; PCP Family Medicine
DX: J02.9 Acute pharyngitis, unspecified (principal); F17.210 Nicotine dependence, cigarettes, uncomplicated
CPT/HCPCS: 87880; 99212; 99214; G0463

== ENCOUNTER 2023-03-24 19:13 | Emergency (ER) | payer MEDICAID, SELFPAY ==
[2023-03-24 19:14] VITALS: BP 112/65; PULSE 75; RESP 18; TEMP 36.8; O2SAT 96; BMI 48.3
[2023-03-24 19:31] LABS: Apearance,Urine Clear (Clear); Blood, Urine Negative (Negative); Color,Urine Dark Yellow (Yellow); Glucose,Urine (UA) Negative (Negative); Ketones,Urine TRACE (Negative); Protein,Urine Negative (Negative)
[2023-03-24 19:32] LABS: Bilirubin,Urine Negative (Negative); UTC Leukocyte Esterase,Urine Negative (Negative); UTC Nitrate,Urine Negative (Negative); UTC Pregnancy Test, Urine Negative (Negative); Urobilinogen,Urine 0.2 EU/dl (0.2)
--- NOTE | 2023-03-24 19:36 | EXP.UTC ---
Discharge Plan Disposition Patient Disposition: Still a Patient Prescriptions Prescriptions: No Action cetirizine 10 mg tablet 10 mg PO DAILY Patient Comments: TAKE 1 TABLET BY MOUTH EVERY DAILY montelukast 10 mg tablet 10 mg PO DAILY Patient Comments: TAKE 1 TABLET BY MOUTH EVERY DAY escitalopram oxalate 10 mg tablet 10 mg PO DAILY Patient Comments: TAKE 1 TABLET BY MOUTH EVERY DAY DIRECTED atorvastatin 20 mg tablet 20 mg PO DAILY Patient Comments: TAKE 1 TABLET BY MOUTH EVERY DAY AT BEDTIME amoxicillin [amoxicillin] 875 mg tablet 875 mg PO Q12H Qty: 20 0RF methylprednisolone 4 mg Tablets,Dose Pack 4 mg PO DIRECTED Qty: 21 0RF Referrals Follow up/Referrals: Rene Moura MD [Primary Care Provider] - See instructions Clinical Impressions Clinical Impression: Back pain Qualifiers: Back pain location: low back pain Chronicity: acute Back pain laterality: left Sciatica presence: without sciatica Qualified Code(s): M54.50 - Low back pain, unspecified Discharge ED Provider: Carolyn ([facility])Jama [facility] [place] HPI General Stated complaint: back pain Mode of Arrival: Ambulatory Source of Information: Patient Limitations: No Limitations Time Seen by Provider: 03/24/23 19:36 MS Symptoms (Recalled from RN notes): Yes History of Present Illness Provider Complaint: 28 yr old female presents for low back pain that radiates to left flank since yesterday. pt states she has hx of kidney stones and pain is worse than the pain she had then. Related Data Home Medications Medication Instructions Recorded Confirmed cetirizine 10 mg tablet 10 mg PO DAILY Allergy Symptoms 02/06/23 03/14/23 escitalopram oxalate 10 mg tablet 10 mg PO DAILY Depression 02/06/23 03/14/23 montelukast 10 mg tablet 10 mg PO DAILY Allergy Symptoms 02/06/23 03/14/23 atorvastatin 20 mg tablet 20 mg PO DAILY 03/14/23 03/14/23 Previous Rx's Medication Instructions Recorded amoxicillin 875 mg tablet 875 mg PO Q12H #20 tabs 03/14/23 methylprednisolone 4 mg tablets in 4 mg PO DIRECTED #21 tabs 03/14/23 a dose pack Allergies Allergy/AdvReac Type Severity Reaction Status Date / Time No Known Allergies Allergy Verified 03/24/23 19:39 [facility] Disclaimer: The information contained in this section may have been updated after the patient was seen, as this information can be updated by other users. Social History , [employer]) Smoking Status: Current every day smoker tobacco type: cigarettes packs per day: 1 alcohol intake: never substance use type: denies use current occupational status: unemployed and disabled Travel in the last 8 weeks: None ROS Obtained: Yes All systems reviewed & no additional complaints except as documented Constitutional Constitutional: Reports system reviewed and no additional complaints, except as documented Eyes Eyes: Reports system reviewed and no additional complaints, except as documented ENT Ears, Nose, Mouth, and Throat: Reports system reviewed and no additional complaints, except as documented Cardiovascular Cardiovascular: Reports system reviewed and no additional complaints, except as documented Respiratory Respiratory: Reports system reviewed and no additional complaints, except as documented Gastrointestinal Gastrointestingal: Reports system reviewed and no additional complaints, except as documented Genitourinary Female Genitourinary: Reports system reviewed and no additional complaints, except as documented and Reports as per HPI Musculoskeletal Musculoskeletal: Reports system reviewed and no additional complaints, except as documented, Reports as per HPI and Reports back pain Integumentary/Breasts Skin/Breast: Reports system reviewed and no additional complaints, except as documented Endocrine Endocrine: Reports system reviewed and no additional complaints, except as documented Phys
[2023-03-24 19:50] VITALS: BP 119/70; PULSE 74; RESP 18; TEMP 36.8; O2SAT 98; BMI 48.3
--- NOTE | 2023-03-24 20:34 | XR_ITS ---
PROCEDURE INFORMATION: Exam: XR Lumbosacral Spine Exam date and time: 03/24/2023 8:38 PM Age: 28 years old Clinical indication: Low back pain; Additional info: Lumbar midline back pain TECHNIQUE: Imaging protocol: Radiologic exam of the lumbosacral spine. Views: 2 or 3 views. COMPARISON: CT ABDOMEN PELVIS W CON 02/07/2023 12:23 AM FINDINGS: Bones/joints: Lumbar curvature and alignment is unremarkable. There is no fracture, spondylolysis or spondylolisthesis. Pedicles are intact. Disc heights are maintained. No significant degenerative changes. Soft tissues: Paraspinal soft tissues are unremarkable. IMPRESSION: Normal lumbar spine.
--- NOTE | 2023-03-24 22:38 | PC.NURSE ---
in room with update
[2023-03-24 22:49] VITALS: BP 117/70; PULSE 70; RESP 18; TEMP 36.8
--- NOTE | 2023-03-29 14:57 | HMH.EDGENADL ---
Discharge Plan Disposition Patient Disposition: Home, Self-Care Condition: Good Prescriptions Prescriptions: New lidocaine 5 % adhesive patch,medicated 2 patch topical DAILY Qty: 15 0RF Rx Instructions: leave on most painful area for up to 12 hrs methocarbamol 750 mg tablet 750 mg PO Q8H Qty: 90 0RF No Action cetirizine 10 mg tablet 10 mg PO DAILY Patient Comments: TAKE 1 TABLET BY MOUTH EVERY DAILY montelukast 10 mg tablet 10 mg PO DAILY Patient Comments: TAKE 1 TABLET BY MOUTH EVERY DAY escitalopram oxalate 10 mg tablet 10 mg PO DAILY Patient Comments: TAKE 1 TABLET BY MOUTH EVERY DAY DIRECTED escitalopram oxalate 20 mg tablet 20 mg PO DAILY Patient Comments: TAKE 1 TABLET BY MOUTH EVERY DAY DIRECTED atorvastatin 20 mg tablet 20 mg PO DAILY Patient Comments: TAKE 1 TABLET BY MOUTH EVERY DAY AT BEDTIME Referrals Follow up/Referrals: Rene Moura MD [Primary Care Provider] - See instructions Activity Restrictions/Add. Instructions Additional Instructions/Restrictions: Please return to the emergency department if you experience any new or worsening symptom Clinical Impressions Clinical Impression: Back pain Qualifiers: Back pain location: low back pain Chronicity: acute Back pain laterality: left Sciatica presence: without sciatica Qualified Code(s): M54.50 - Low back pain, unspecified Instructions Patient Instructions: DI for Low Back Pain Discharge ED Provider: Alaln Camargo Adult HPI General Chief complaint: Back Pain/Injury Stated complaint: back pain Time Seen by Provider: 03/24/23 19:36 Mode of Arrival: Ambulatory Source of Information: Patient Limitations: No Limitations Description of Symptoms (Recalled from ER Triage Doc. by RN): pt reports low back pain since yesterday am, states she had similar issues. Pt reports doing alot of lifting anf tugging 2 days ago, denies urinary symptoms History of Present Illness HPI narrative: Patient presents with 1 day of midline low back pain in the absence of numbness, tingling, radiating pain, fevers, chills, no known precipitating trauma although was lifting objects the day before. Has had similar symptoms in the past. Denies any symptoms concerning for saddle anesthesia. Denies recreational drug use. No pain elsewhere. [id number] medications have not helped Related Data Home Medications Medication Instructions Recorded Confirmed cetirizine 10 mg tablet 10 mg PO DAILY Allergy Symptoms 02/06/23 03/24/23 escitalopram oxalate 10 mg tablet 10 mg PO DAILY Depression 02/06/23 03/24/23 montelukast 10 mg tablet 10 mg PO DAILY Allergy Symptoms 02/06/23 03/24/23 atorvastatin 20 mg tablet 20 mg PO DAILY 03/14/23 03/24/23 escitalopram oxalate 20 mg tablet 20 mg PO DAILY 03/24/23 03/24/23 Previous Rx's Medication Instructions Recorded lidocaine 5 % topical patch 2 patch topical DAILY #15 ea 03/24/23 methocarbamol 750 mg tablet 750 mg PO Q8H #90 tabs 03/24/23 Allergies Allergy/AdvReac Type Severity Reaction Status Date / Time No Known Allergies Allergy Verified 03/24/23 19:39 [facility] Disclaimer: The information contained in this section may have been updated after the patient was seen, as this information can be updated by other users. Medical History (Updated 03/24/23 @ 19:42 by Steff Cowan RN) delivery delivered GERD (gastroesophageal reflux disease) Social History Smoking Status: Current every day smoker tobacco type: cigarettes packs per day: 1 alcohol intake: never substance use type: denies use current occupational status: unemployed and disabled Travel in the last 8 weeks: None ROS Obtained: Yes Systems reviewed as appropriate & no additional complaints except as documented As per HPI Physical Exam General General appearance: alert and in no apparen
== END 2023-03-24 22:50 | disposition home or self-care (01) ==
LOC: UTC 19:39 → ER 19:44
PROVIDERS: Nurse Practitioner Family; Emergency Provider Emergency Medicine; PCP Family Medicine
DX: M54.50 Low back pain, unspecified (principal); F17.210 Nicotine dependence, cigarettes, uncomplicated; K21.9 Gastro-esophageal reflux disease without esophagitis
CPT/HCPCS: 72100; 81003; 81025; 99283

== ENCOUNTER 2023-04-06 19:09 | Emergency (ER) | payer MEDICAID, SELFPAY ==
[2023-04-06 19:25] VITALS: BP 140/90; PULSE 86; RESP 19; TEMP 37; O2SAT 98; BMI 48.3
[2023-04-06 19:45] VITALS: BP 140/90; PULSE 86; RESP 19; TEMP 37; O2SAT 98
--- NOTE | 2023-04-06 19:45 | EXP.UTC ---
Discharge Plan Disposition Patient Disposition: Home, Self-Care Condition: Good Prescriptions Prescriptions: No Action cetirizine 10 mg tablet 10 mg PO DAILY Patient Comments: TAKE 1 TABLET BY MOUTH EVERY DAILY montelukast 10 mg tablet 10 mg PO DAILY Patient Comments: TAKE 1 TABLET BY MOUTH EVERY DAY escitalopram oxalate 10 mg tablet 10 mg PO DAILY Patient Comments: TAKE 1 TABLET BY MOUTH EVERY DAY DIRECTED escitalopram oxalate 20 mg tablet 20 mg PO DAILY Patient Comments: TAKE 1 TABLET BY MOUTH EVERY DAY DIRECTED lidocaine 5 % adhesive patch,medicated 2 patch topical DAILY Qty: 15 0RF Rx Instructions: leave on most painful area for up to 12 hrs methocarbamol 750 mg tablet 750 mg PO Q8H Qty: 90 0RF atorvastatin 20 mg tablet 20 mg PO DAILY Patient Comments: TAKE 1 TABLET BY MOUTH EVERY DAY AT BEDTIME Referrals Follow up/Referrals: Rene Moura MD [Primary Care Provider] - See instructions Activity Restrictions/Add. Instructions Additional Instructions/Restrictions: *Monitor Temp, Over the counter Motrin or Tylenol as directed/as needed Tylenol every 4 hours and Motrin every 6 hours (as long as your family doctor has told you that you can take it) for fever or pain. and straight to ER if unable to lower temp less than 101.0 after medication given *Humidifier/Vaporizer Follow up IMMEDIATELY for new or worsening symptoms or no Noticeable improvement over the next 48-72 hours. 911 for difficulty breathing or swallowing You were tested for today for Upper Respiratory Panel with COVID19 your test result should be back in the next 24hrs You can check your results on the [facility] if your COVID test is positive you must Quarantine for the next 5 days Clinical Impressions Clinical Impression: Exposure to COVID-19 virus Instructions Patient Instructions: DI for COVID-19 (Suspected or Confirmed ) Discharge ED Provider: Kelle Barrow [facility] [place] HPI General Stated complaint: exposed to covid- test Mode of Arrival: Ambulatory Source of Information: Patient Limitations: No Limitations Time Seen by Provider: 04/06/23 19:46 Description of Symptoms (Recalled from Triage Doc. by RN): COVID TEST D/T EXPOSURE. DENIES SYMPTOMS HEENT Symptoms (Recalled from RN notes): No Resp Symptoms (Recalled from RN notes): No Skin Symptoms (Recalled from RN notes): No MS Symptoms (Recalled from RN notes): No Functional Status (Recalled from RN notes): WNL History of Present Illness Provider Complaint: Patient states that she recently around several family members that tested positive for COVID States that she isnt having any symptoms or anything but she wanted to get tested for COVID to make sure she didnt have it Related Data Home Medications Medication Instructions Recorded Confirmed cetirizine 10 mg tablet 10 mg PO DAILY Allergy Symptoms 02/06/23 03/24/23 escitalopram oxalate 10 mg tablet 10 mg PO DAILY Depression 02/06/23 03/24/23 montelukast 10 mg tablet 10 mg PO DAILY Allergy Symptoms 02/06/23 03/24/23 atorvastatin 20 mg tablet 20 mg PO DAILY 03/14/23 03/24/23 escitalopram oxalate 20 mg tablet 20 mg PO DAILY 03/24/23 03/24/23 Previous Rx's Medication Instructions Recorded lidocaine 5 % topical patch 2 patch topical DAILY #15 ea 03/24/23 methocarbamol 750 mg tablet 750 mg PO Q8H #90 tabs 03/24/23 Allergies Allergy/AdvReac Type Severity Reaction Status Date / Time No Known Allergies Allergy Verified 03/24/23 19:39 Worker's Comp Is this a Worker's Comp case?: No [facility] Disclaimer: The information contained in this section may have been updated after the patient was seen, as this information can be updated by other users. Medical History (Updated 04/06/23 @ 19:49 by Kelle Barrow APRN) delivery delivered GERD (gastroesophageal reflux disease) Social History (Reviewed 03/24/23 @ 19:39 b
== END 2023-04-06 19:55 | disposition home or self-care (01) ==
PROVIDERS: Emergency Provider Nurse Practitioner; PCP Family Medicine
DX: K21.9 Gastro-esophageal reflux disease without esophagitis; Z20.822 Contact with and (suspected) exposure to COVID-19; F17.210 Nicotine dependence, cigarettes, uncomplicated
CPT/HCPCS: 87635; 99212; 99213; G0463

== ENCOUNTER 2023-04-26 18:16 | Emergency (ER) | payer MEDICAID, SELFPAY ==
[2023-04-26 18:20] VITALS: BP 114/67; PULSE 89; RESP 18; TEMP 37.3; O2SAT 97; BMI 47.1
--- NOTE | 2023-04-26 18:26 | EXP.UTC ---
Discharge Plan Disposition Patient Disposition: Home, Self-Care Condition: Good Prescriptions Prescriptions: New amoxicillin [amoxicillin] 875 mg tablet 875 mg PO Q12H Qty: 20 0RF benzonatate [benzonatate] 100 mg capsule 100 mg PO TIDP PRN (Reason: Cough) Qty: 30 0RF ondansetron 4 mg Tablet,Disintegrating 4 mg PO Q8H PRN (Reason: Nausea) Qty: 12 0RF No Action cetirizine 10 mg tablet 10 mg PO DAILY Patient Comments: TAKE 1 TABLET BY MOUTH EVERY DAILY montelukast 10 mg tablet 10 mg PO DAILY Patient Comments: TAKE 1 TABLET BY MOUTH EVERY DAY escitalopram oxalate 10 mg tablet 10 mg PO DAILY Patient Comments: TAKE 1 TABLET BY MOUTH EVERY DAY DIRECTED escitalopram oxalate 20 mg tablet 20 mg PO DAILY Patient Comments: TAKE 1 TABLET BY MOUTH EVERY DAY DIRECTED lidocaine 5 % adhesive patch,medicated 2 patch topical DAILY Qty: 15 0RF Rx Instructions: leave on most painful area for up to 12 hrs methocarbamol 750 mg tablet 750 mg PO Q8H Qty: 90 0RF atorvastatin 20 mg tablet 20 mg PO DAILY Patient Comments: TAKE 1 TABLET BY MOUTH EVERY DAY AT BEDTIME Referrals Follow up/Referrals: Rene Moura MD [Primary Care Provider] - See instructions Activity Restrictions/Add. Instructions Additional Instructions/Restrictions: Drink plenty of fluids. Take tylenol or ibuprofen for pain or fever. Take the medications as directed. Follow up with your regular doctor. GO TO THE ER FOR ANY WORSENING SYMPTOMS Clinical Impressions Clinical Impression: Acute viral syndrome, Pharyngitis Instructions Patient Instructions: DI for Viral Syndrome Discharge ED Provider: Canelo Harris [facility] General Stated complaint: vomiting, stomach ache Time Seen by Provider: 04/26/23 18:26 History of Present Illness Provider Complaint: She states that for the past 2 days she has had low grade fever, chills, sore throat, chest and sinus congestion. She has been exposed to covid-19. She denies shortness of breath. Related Data Home Medications Medication Instructions Recorded Confirmed cetirizine 10 mg tablet 10 mg PO DAILY Allergy Symptoms 02/06/23 03/24/23 escitalopram oxalate 10 mg tablet 10 mg PO DAILY Depression 02/06/23 03/24/23 montelukast 10 mg tablet 10 mg PO DAILY Allergy Symptoms 02/06/23 03/24/23 atorvastatin 20 mg tablet 20 mg PO DAILY 03/14/23 03/24/23 escitalopram oxalate 20 mg tablet 20 mg PO DAILY 03/24/23 03/24/23 Previous Rx's Medication Instructions Recorded lidocaine 5 % topical patch 2 patch topical DAILY #15 ea 03/24/23 methocarbamol 750 mg tablet 750 mg PO Q8H #90 tabs 03/24/23 amoxicillin 875 mg tablet 875 mg PO Q12H #20 tabs 04/26/23 benzonatate 100 mg capsule 100 mg PO TIDP PRN Cough #30 caps 04/26/23 ondansetron 4 mg disintegrating 4 mg PO Q8H PRN Nausea #12 tabs 04/26/23 tablet Allergies Allergy/AdvReac Type Severity Reaction Status Date / Time No Known Allergies Allergy Verified 04/26/23 18:[address] [facility] Disclaimer: The information contained in this section may have been updated after the patient was seen, as this information can be updated by other users. Medical History (Updated 04/26/23 @ 19:06 by Canelo Harris APRN) delivery delivered GERD (gastroesophageal reflux disease) Social History Smoking Status: Current every day smoker tobacco type: cigarettes packs per day: 1 alcohol intake: never substance use type: denies use current occupational status: unemployed and disabled Travel in the last 8 weeks: None ROS Obtained: Yes All systems reviewed & no additional complaints except as documented Constitutional Constitutional: Reports chills and Reports fever(s) Eyes Eyes: Denies eye discharge ENT Ears, Nose, Mouth, and Throat: Reports as per HPI Cardiovascular Cardiovascular: Denies chest pain Res
[2023-04-26 18:45] LABS: UTC Influenza A Antigen Negative (Negative); UTC Strep Screen (Rapid) Negative (Negative)
[2023-04-26 18:46] LABS: UTC Influenza B Antigen Negative (Negative)
[2023-04-26 19:19] VITALS: BP 114/67; PULSE 89; RESP 18; TEMP 37.3; O2SAT 97
== END 2023-04-26 19:19 | disposition home or self-care (01) ==
PROVIDERS: Emergency Provider Nurse Practitioner Family; PCP Family Medicine
DX: J20.9 Acute bronchitis, unspecified (principal); R10.9 Unspecified abdominal pain; R11.2 Nausea with vomiting, unspecified; R50.9 Fever, unspecified; R05.9 Cough, unspecified; R09.89 Other specified symptoms and signs involving the circulatory and respiratory systems; R09.81 Nasal congestion; B34.9 Viral infection, unspecified; F17.210 Nicotine dependence, cigarettes, uncomplicated; K21.9 Gastro-esophageal reflux disease without esophagitis; Z20.822 Contact with and (suspected) exposure to COVID-19
CPT/HCPCS: 87635; 87804; 87880; 99212; 99214; G0463

== ENCOUNTER 2023-05-22 15:14 | Emergency (ER) | payer MEDICAID, SELFPAY ==
[2023-05-22 16:30] VITALS: BP 113/66; PULSE 71; RESP 18; TEMP 36.7; O2SAT 98; BMI 49.7
--- NOTE | 2023-05-22 16:40 | XR_ITS ---
PROCEDURE INFORMATION: Exam: XR Left Forearm Exam date and time: 05/22/2023 4:40 PM Age: 28 years old Clinical indication: Lower or forearm; Left; Patient HX: Denies injury, pain in elbow/forearm TECHNIQUE: Imaging protocol: Radiologic exam of the left forearm. Views: 2 views. Total images: 2 COMPARISON: CR XR ELBOW LT MIN 3V 05/22/2023 4:39 PM FINDINGS: Bones/joints: No evidence of acute fracture or dislocation. Soft tissues: Soft tissues are within normal limits. IMPRESSION: No evidence of acute fracture or dislocation.
--- NOTE | 2023-05-22 16:40 | XR_ITS ---
PROCEDURE INFORMATION: Exam: XR Left Elbow Exam date and time: 05/22/2023 4:39 PM Age: 28 years old Clinical indication: Elbow; Left; Patient HX: Denies injury, pain for a few days TECHNIQUE: Imaging protocol: Radiologic exam of the left elbow. Views: 3 or more views. Total images: 3 COMPARISON: No relevant prior studies available. FINDINGS: Bones/joints: No evidence of acute fracture or dislocation. Soft tissues: Soft tissues are within normal limits. IMPRESSION: No evidence of acute fracture or dislocation.
--- NOTE | 2023-05-22 16:57 | EXP.UTC ---
Discharge Plan Disposition Patient Disposition: Home, Self-Care Condition: Good Prescriptions Prescriptions: New naproxen 375 mg tablet 375 mg PO BID PRN (Reason: pain) Qty: 14 0RF No Action atorvastatin 20 mg tablet 20 mg PO DAILY Patient Comments: TAKE 1 TABLET BY MOUTH EVERY DAY AT BEDTIME cetirizine 10 mg tablet 10 mg PO DAILY Patient Comments: TAKE ONE TABLET BY MOUTH ONCE DAILY montelukast 10 mg tablet 10 mg PO DAILY Patient Comments: TAKE 1 TABLET BY MOUTH EVERY DAY escitalopram oxalate 20 mg tablet 20 mg PO DAILY Patient Comments: TAKE 1 TABLET BY MOUTH EVERY DAY DIRECTED Referrals Follow up/Referrals: Rene Moura MD [Primary Care Provider] - See instructions Activity Restrictions/Add. Instructions Additional Instructions/Restrictions: *RICE, Rest the extremity, Ice 15-20 minutes 3-4 times daily, Compress- wear the jerardo wrap as discussed as much as possible to help reduce swelling and pain, Elevate the extremity when at rest *Jerardo wrap is for support and help control swelling, use it except in the shower. Be sure that is not to tight but not to loose either *Elevate when resting? *Naproxen every 12 hours as needed for pain an inflammation. If need something more can take Tylenol in between doses of Ibuprofen to help Immediately follow up with your family doctor for new or worsening of symptoms, or no noticeable improvement over the next 3-5 days Soaking in warm water and epson salt may help with pain and discomfort Clinical Impressions Clinical Impression: Forearm strain Qualifiers: Encounter type: initial encounter Laterality: left Qualified Code(s): S56.912A - Strain of unspecified muscles, fascia and tendons at forearm level, left arm, initial encounter Instructions Patient Instructions: Naproxen Discharge ED Provider: Kelle Barrow [facility] General Stated complaint: left elbow/wrist pain, no accident Mode of Arrival: Ambulatory Source of Information: Patient Limitations: No Limitations Time Seen by Provider: 05/22/23 17:02 Description of Symptoms (Recalled from Triage Doc. by RN): PATIENT C/O PAIN TO LEFT ELBOW PAIN THAT RADIATES DOWN TO WRIST THAT STARTED 2 DAYS AGO AND HAS GOTTEN WORSE HEENT Symptoms (Recalled from RN notes): No Resp Symptoms (Recalled from RN notes): No Skin Symptoms (Recalled from RN notes): No MS Symptoms (Recalled from RN notes): Yes Functional Status (Recalled from RN notes): WNL History of Present Illness Provider Complaint: Patient states that she has been having pain in the outside of her left forearm that is worse with movement for the last couple of days States that it hurts when she tries to turn her arm certain ways and when she tries to lift something States that she woke up that way a couple days ago not sure if she may have slept on it wrong or something Related Data Home Medications Medication Instructions Recorded Confirmed atorvastatin 20 mg tablet 20 mg PO DAILY 05/22/23 05/22/23 cetirizine 10 mg tablet 10 mg PO DAILY 05/22/23 05/22/23 escitalopram oxalate 20 mg tablet 20 mg PO DAILY 05/22/23 05/22/23 montelukast 10 mg tablet 10 mg PO DAILY 05/22/23 05/22/23 Previous Rx's Medication Instructions Recorded naproxen 375 mg tablet 375 mg PO BID PRN pain #14 tabs 05/22/23 Allergies Allergy/AdvReac Type Severity Reaction Status Date / Time No Known Allergies Allergy Verified 04/26/23 18:36 Worker's Comp Is this a Worker's Comp case?: No [facility] Disclaimer: The information contained in this section may have been updated after the patient was seen, as this information can be updated by other users. Medical History (Updated 05/22/23 @ 17:42 by Kelle Barrow APRN) delivery delivered GERD (gastroesophageal reflux disease) Social History Smoking Status: Current every day smoker tobacco type: cigarettes packs per day: 1 alcohol intake: never substance use type: denies use current occupational status: unemployed and disabled Travel in the last 8 weeks: None ROS Obtained: Yes All systems reviewed & no additional complaints except as documented and Yes Systems reviewed as appropriate & no additional complaints except as documented Constitutional Constitutional: Reports system reviewed and no additional complaints, except as documented and Reports as per HPI ENT Ears, Nose, Mouth, and Throat: Reports system reviewed and no additional complaints, except as documented and Reports as per HPI Cardiovascular Cardiovascular: Reports system reviewed and no additional complaints, except as documented, Reports as per HPI, Denies chest pain, Denies dyspnea, Denies edema and Denies lightheadedness Respiratory Respiratory: Reports system reviewed and no additional complaints, except as documented, Reports as per HPI and Denies dyspnea Gastrointestinal Gastrointestingal: Reports system reviewed and no additional complaints, except as documented and as per HPI Physical Exam General General appearance: alert and in no apparent distress ENT ENT exam: Present mucous membranes moist Respiratory Respiratory exam: Present normal lung sounds bilaterally; Absent respiratory distress or wheezes Cardiovascular Cardiovascular exam: Present regular rate, normal rhythm and normal heart sounds Abdominal Exam Abdominal exam: Present soft and normal bowel sounds; Absent distention or tenderness Expanded Upper Extremity Exam Left: Elbow exam: Present tenderness and other (pain with movement and palpation); Absent swelling, abrasion, ecchymosis or erythema Forearm/Wrist exam: Present tenderness and other (reports pain with movement and palpation); Absent swelling, abrasion, ecchymosis or erythema Vascular exam: Normal capillary refill and radial pulse Neurological Exam Neurological exam: Present alert, oriented X3 and normal gait Medical Decision Making Kumar Inquiry Pt receiving controlled substance: No Kumar was queried for this patient: No Vital Signs: 05/22/23 16:30 Temperature 98.0 F Temperature Source Oral Pulse Rate [Left Brachial] 71 Respiratory Rate 18 Blood Pressure [Left Arm] 113/66 Blood Pressure Mean [Left Arm] 81 Blood Pressure Source [Left Arm] Automatic Cuff Blood Pressure Position [Left Arm] Sitting 02 Sat by Pulse Oximetry 98 Oxygen Delivery Method Room Air Orders (Tests/Meds): ORDERS Category Date Time Status XR elbow LT min 3V Stat Exams 05/22/23 16:40 Taken XR forearm LT 2V Stat Exams 05/22/23 16:40 Taken Radiology Data #1: Image(s): Elbow Image Reviewed: Yes I have reviewed radiologist's interpretation IMPRESSION: No evidence of acute fracture or dislocation. #2: Image(s): Forearm Image Reviewed: Yes I have reviewed radiologist's interpretation
[2023-05-22 17:38] VITALS: BP 113/66; PULSE 71; RESP 18; TEMP 36.7; O2SAT 98
== END 2023-05-22 17:47 | disposition home or self-care (01) ==
PROVIDERS: Emergency Provider Nurse Practitioner; PCP Family Medicine
DX: S56.912A Strain of unspecified muscles, fascia and tendons at forearm level, left arm, initial encounter (principal); M79.632 Pain in left forearm; K21.9 Gastro-esophageal reflux disease without esophagitis; F17.210 Nicotine dependence, cigarettes, uncomplicated; X58.XXXA Exposure to other specified factors, initial encounter
CPT/HCPCS: 73080; 73090; 99212; 99214; G0463

== ENCOUNTER 2023-05-26 21:22 | Emergency (ER) | payer MEDICAID, SELFPAY ==
[2023-05-26 21:24] VITALS: BP 115/43; PULSE 86; RESP 18; TEMP 37.4; O2SAT 96; BMI 49.7
--- NOTE | 2023-05-26 21:53 | HMH.EDGENADL ---
Discharge Plan Disposition Patient Disposition: Home, Self-Care Condition: Good Prescriptions Prescriptions: No Action atorvastatin 20 mg tablet 20 mg PO DAILY Patient Comments: TAKE 1 TABLET BY MOUTH EVERY DAY AT BEDTIME cetirizine 10 mg tablet 10 mg PO DAILY Patient Comments: TAKE ONE TABLET BY MOUTH ONCE DAILY montelukast 10 mg tablet 10 mg PO DAILY Patient Comments: TAKE 1 TABLET BY MOUTH EVERY DAY escitalopram oxalate 20 mg tablet 20 mg PO DAILY Patient Comments: TAKE 1 TABLET BY MOUTH EVERY DAY DIRECTED naproxen 375 mg tablet 375 mg PO BID PRN (Reason: pain) Qty: 14 0RF Referrals Follow up/Referrals: Rene Moura MD [Primary Care Provider] - See instructions Activity Restrictions/Add. Instructions Additional Instructions/Restrictions: Please follow-up with your primary care provider. Please take Tylenol and ibuprofen as needed for pain. Please return to the emergency department if you develop any new or worsening symptoms or become concerned for your health. Clinical Impressions Clinical Impression: Abdominal pain Qualifiers: Abdominal location: lower abdomen, unspecified Qualified Code(s): R10.30 - Lower abdominal pain, unspecified Instructions Patient Instructions: DI for Acute Abdominal Pain Discharge ED Provider: Eber Hector General Adult HPI General Chief complaint: Abdominal Pain Stated complaint: lower abdominal pain Time Seen by Provider: 05/26/23 21:32 Mode of Arrival: Ambulatory Source of Information: Patient Limitations: No Limitations Description of Symptoms (Recalled from ER Triage Doc. by RN): Patient c/o lower ABD pain that started about 2 hrs ago. History of Present Illness HPI narrative: 28-year-old female, history of appendectomy cholecystectomy, history of ovarian cyst presents with lower abdominal pain starting couple of hours ago. She reports that it is sharp in nature. She reports it is worse with laying back. She reports that it is bilateral in nature. She is supposed to start her menstrual cycle soon but has not yet started. She denies any urinary symptoms. She reports that she has had a kidney stone in the past. She denies any recent fever or illness. Reports no significant nausea or vomiting. Related Data Home Medications Medication Instructions Recorded Confirmed atorvastatin 20 mg tablet 20 mg PO DAILY 05/22/23 05/26/23 cetirizine 10 mg tablet 10 mg PO DAILY 05/22/23 05/26/23 escitalopram oxalate 20 mg tablet 20 mg PO DAILY 05/22/23 05/26/23 montelukast 10 mg tablet 10 mg PO DAILY 05/22/23 05/26/23 Previous Rx's Medication Instructions Recorded naproxen 375 mg tablet 375 mg PO BID PRN pain #14 tabs 05/22/23 Allergies Allergy/AdvReac Type Severity Reaction Status Date / Time No Known Allergies Allergy Verified 04/26/23 18:36 [facility] Disclaimer: The information contained in this section may have been updated after the patient was seen, as this information can be updated by other users. Medical History (Updated 05/26/23 @ 23:35 by Eber Hector MD) delivery delivered GERD (gastroesophageal reflux disease) Social History Smoking Status: Current every day smoker tobacco type: cigarettes packs per day: 1 alcohol intake: never substance use type: denies use current occupational status: unemployed and disabled Travel in the last 8 weeks: None ROS Obtained: Yes All systems reviewed & no additional complaints except as documented Physical Exam General General appearance: alert and in no apparent distress Head Head exam: atraumatic and normocephalic Eye Eye exam: Present normal appearance, PERRL and EOMI ENT ENT exam: Present normal oropharynx and normal external ear exam Neck Neck exam: Present normal inspection and full ROM Chest Chest inspection: Present normal inspection and symmetric chest wall rise; Absent tenderness Respiratory Respiratory exam: Present normal lung sounds bilaterally; Absent respiratory distress Cardiovascular Cardiovascular exam: Present regular rate and normal rhythm Abdominal Exam Abdominal exam: Present soft and tenderness (Right lower quadrant, left lower quadrant, suprapubic tenderness, no peritonitis or guarding); Absent distention or guarding Extremities Exam Extremities exam: Present normal inspection; Absent edema or joint swelling Back Exam Back exam: Present normal inspection; Absent tenderness Neurological Exam Neurological exam: Present alert and oriented X3; Absent motor sensory deficit Psychiatric Psychiatric exam: Present normal affect and normal mood Skin Skin exam: Present warm, dry and normal color Lymphatic Lymphatic Findings: no adenopathy Medical Decision Making Medical Records Medical records reviewed: Yes I reviewed the patient's medical records. Kumar Inquiry Pt receiving controlled substance: No Kumar was queried for this patient: No Vital Signs: 05/26/23 21:24 05/26/23 22:30 05/26/23 23:17 Temperature 99.3 F Temperature Source Oral Pulse Rate 75 70 Pulse Rate [Radial] 86 Respiratory Rate 18 Blood Pressure 109/67 L 123/68 Blood Pressure [Right Arm] 115/43 L Blood Pressure Mean [Right Arm] 67 Blood Pressure Source [Right Arm] Automatic Cuff Blood Pressure Position [Right Arm] Sitting 02 Sat by Pulse Oximetry 96 97 97 Oxygen Delivery Method Room Air 05/26/23 23:30 05/26/23 23:41 Temperature 98.9 F Temperature Source Oral Pulse Rate 74 69 Pulse Rate [Radial] Respiratory Rate 16 Blood Pressure 120/80 120/80 Blood Pressure [Right Arm] Blood Pressure Mean [Right Arm] Blood Pressure Source [Right Arm] Blood Pressure Position [Right Arm] 02 Sat by Pulse Oximetry 96 Oxygen Delivery Method Lab Data Lab results reviewed: Yes I reviewed the patient's lab results. Lab Results 05/26/23 21:34: WBC 13.6 H, RBC 4.99, Hgb 14.3, Hct 41.7, MCV 83.5, MCH 28.5, MCHC 34.2, RDW 13.8, Plt Count 316, MPV 7.8, Neut % (Auto) 57.2, Lymph % (Auto) 33.1, [place] % (Auto) 4.8, Eos % (Auto) 3.7, Baso % (Auto) 1.2, Neut # (Auto) 7.8, Lymph # (Auto) 4.5, [place] # (Auto) 0.7, Eos # (Auto) 0.5 H, Baso # (Auto) 0.2, Sodium 139, Potassium 3.9, Chloride 104, Carbon Dioxide 29, Anion Gap 9.9, BUN 17, Creatinine 0.70, Estimated Creat Clear 122, Estimated GFR 100, Est GFR ( Amer) 121, Glucose 105 H, Calcium 8.8, Total Bilirubin 0.4, AST 33, ALT 26, Alkaline Phosphatase 73, Total Protein 7.3, Albumin 3.9, Globulin 3.4 H, Albumin/Globulin Ratio 1.1, Serum HCG, Qual Negative, Urine Color Yellow, Urine Appearance Cloudy, Urine pH 8.0, Ur Specific [place] 1.020, Urine Protein Negative, Urine Glucose (UA) Negative, Urine Ketones Negative, Urine Blood Negative, Urine Nitrate Negative, Urine Bilirubin Negative, Urine Urobilinogen 0.2, Ur Leukocyte Esterase Negative, Urine RBC None, Urine WBC Occasional, Ur Squamous Epith Cells Occasional, Urine Bacteria Trace 05/26/23 21:34 05/26/23 21:34 Orders (Tests/Meds): ED MEDICATIONS Discontinued Medications Generic Name Dose Route Start Last Admin Trade Name Yamila PRN Reason Stop Dose Admin Acetaminophen 1,000 mg 05/26/23 21:59 05/26/23 22:08 Acetaminophen 500mg Tab PO 05/26/23 22:00 1,000 mg ONCE ONE Administration Lactated Ringer's 1,000 mls @ 999 mls/hr 05/26/23 22:00 05/26/23 22:08 Lactated Ringer's 1000 Ml Bag IV 05/26/23 23:00 999 mls/hr .Q1H1M QIUNN Administration Iopamidol 75 ml 05/26/23 22:31 05/26/23 22:32 Iopamidol-370 (76%);100ml Bottle IV 05/26/23 22:32 75 ml ONCE ONE Administration Ondansetron HCl 4 mg 05/26/23 21:59 05/26/23 22:08 Ondansetron 4mg/2ml Vial IV 05/26/23 22:00 4 mg ONCE ONE Administration Sodium Chloride 10 ml 05/26/23 22:31 05/26/23 22:32 Sodium Chloride 0.9% 10ml Syr (Rad Only) IV 05/26/23 22:32 10 ml ONCE ONE Administration ORDERS Category Date Time Status CT abdomen pelvis w con Stat Cat Scan 05/26/23 21:59 Completed CBC w/Auto Diff [Complete Blood Count Auto Diff] Stat Lab 05/26/23 21:34 Completed CMP [Comprehensive Metabolic Panel] Stat Lab 05/26/23 21:34 Completed HCG Qualitative, Serum Stat Lab 05/26/23 21:34 Completed UA [Urinalysis and Microscopic] Stat Lab 05/26/23 21:34 Completed Medical Decision Narrative: 28-year-old female, history of appendectomy, cholecystectomy, obesity presents with onset of bilateral lower abdominal pain. History was obtained via conversation with patient, chart review. On arrival, patient is [afebrile, hemodynamically stable, satting appropriately, alert, oriented x4, GCS 15], moving all extremities spontaneously. Full physical exam performed and significant for mild to moderate bilateral lower lower quadrant and suprapubic abdominal tenderness. Differential includes but is not limited to UTI, constipation, renal lithiasis, hernia, menstrual pain, ruptured ovarian cyst, torsion , ectopic my concern for torsion is exceedingly low given the bilateral nature of pain. Patient was given Tylenol, Zofran, 1 L fluid bolus for symptomatic management and correction of underlying abnormalities. Workup initiated including CBC CMP UA test CT Abdo pelvis IV contrast. On re-evaluation, patient [remains afebrile, HD stable.] Reports symptomatic improvement in abdominal pain. Laboratory workup independently interpreted by me and significant for urine without evidence of infection, negative test, mild leukocytosis. Imaging independently interpreted by me and significant for CT scan without apparent pathology to explain patient's pain. No evidence of constipation, abdominal free fluid, pathology etc. see radiology read for full review of final results. Transvaginal ultrasound to assess for torsion was considered, but deemed unnecessary due to resolution of pain, bilateral nature of pain, normal CT scan. Given patient history, exam and workup, the nature of the patient's presentation remains uncertain, though I do not suspect any emergent or admittable pathology this time. May be early menstrual pain given she is supposed to start her menstrual cycle. Patient was given strict return precautions including for signs of torsion. Patient was agreeable to plan and was discharged in stable condition. Procedures Risk/Benefits of Procedure(s) Were Explained: Yes Critical Care Critical Care Time Critical Care Time: No
--- NOTE | 2023-05-26 21:59 | CT_ITS ---
PROCEDURE INFORMATION: Exam: CT Abdomen And Pelvis With Contrast Exam date and time: 05/26/2023 10:24 PM Age: 28 years old Clinical indication: Abdominal pain; Additional info: Acute bilat lower abd pain TECHNIQUE: Imaging protocol: Computed tomography of the abdomen and pelvis with contrast. Radiation optimization: All CT scans at this facility use at least one of these dose optimization techniques: automated exposure control; mA and/or kV adjustment per patient size (includes targeted exams where dose is matched to clinical indication); or iterative reconstruction. Contrast material: ISOVUE; Contrast volume: 75 ml; Contrast route: IV; COMPARISON: CT ABDOMEN PELVIS W CON 02/07/2023 12:23 AM FINDINGS: Liver: Normal. No mass. Gallbladder and bile ducts: Gallbladder is surgically absent. Pancreas: Normal. No ductal dilation. Spleen: Normal. No splenomegaly. Adrenal glands: Normal. No mass. Kidneys and ureters: Normal. No hydronephrosis. Stomach and bowel: Unremarkable. No obstruction. No mucosal thickening. Appendix: No evidence of appendicitis. Intraperitoneal space: Unremarkable. No free air. No significant fluid collection. Vasculature: Unremarkable. No abdominal aortic aneurysm. Lymph nodes: Unremarkable. No enlarged lymph nodes. Urinary bladder: Unremarkable as visualized. Reproductive: Unremarkable as visualized. Bones/joints: Unremarkable. No acute fracture. Soft tissues: Unremarkable. IMPRESSION: No acute abnormality
[2023-05-26 22:08] LABS: Microscopic, Urine URINE MICROSCOPIC (MICROSCOPIC)
[2023-05-26] MEDS: LACTATED RINGERS 1000ML 1,000 ML 999 ML IV (22:08)
[2023-05-26] MEDS: ACETAMINOPHEN 500MG TAB 1000 MG PO (22:08)
[2023-05-26] MEDS: ONDANSETRON 4MG/2ML VIAL 4 MG IV (22:08)
[2023-05-26 22:10] LABS: Basophils # 0.2 K/mm3 (0-0.2); Basophils % 1.2 % (0.1-2.0); Eosinophils # 0.5 K/mm3 (0.0-0.4); Eosinophils % 3.7 % (0.1-12.0); Hematocrit 41.7 % (37.0-47.0); Hemoglobin 14.3 g/dL (12.2-16.2); Lymphocytes # 4.5 K/mm3 (0.7-4.5); Lymphocytes % 33.1 % (10-50); Mean Corpuscular HGB Conc 34.2 g/dL (31.8-35.4); Mean Corpuscular Hemoglobin 28.5 pg (27.0-31.2); Mean Corpuscular Volume 83.5 fl (81-99); Mean Platelet Volume 7.8 fl (7.4-10.4); Monocytes # 0.7 K/mm3 (0.1-1.0); Monocytes % 4.8 % (1.7-9.3); Neutrophils # 7.8 K/mm3 (1.8-7.8); Neutrophils % 57.2 % (37.0-80.0); Platelet Count 316 K/mm3 (142-424); Red Blood Count 4.99 M/mm3 (4.20-5.40); Red Cell Distribution Width 13.8 % (11.5-17.5); White Blood Count 13.6 K/mm3 (4.8-10.8)
[2023-05-26 22:11] LABS: Appearance,Urine CLOUDY (Clear); Bilirubin,Urine Negative (Negative); Blood, Urine Negative (Negative); Chloride 104 mmol/L (98-107); Color,Urine YELLOW (Yellow); Glucose,Urine (UA) Negative (Negative); Ketones,Urine Negative (Negative); Leukocyte Esterase,Urine Negative (Negative); Nitrate,Urine Negative (Negative); Potassium 3.9 mmoL/L (3.5-5.1); Protein,Urine Negative (Negative); Sodium 139 mmol/L (136-145); Urobilinogen,Urine 0.2 EU/dl (0.2)
[2023-05-26 22:13] LABS: Blood Urea Nitrogen 17 mg/dl (7-17); Creatinine Clearance Estimated 122 mL/min (50-200); Estimated Glomerular Filt Rate 100 ml/min (>60); GFR (African American) 121 ML/MIN (>60)
[2023-05-26 22:14] LABS: Alanine Aminotransferase 26 U/L (12-78); Albumin Level 3.9 g/dl (3.5-5.0); Albumin/Globulin Ratio 1.1 (1.1-1.8); Alkaline Phosphatase 73 U/L (38-126); Anion Gap 9.9 mEq/L (5-15); Aspartate Amino Transferase 33 U/L (14-36); Bilirubin,Total 0.4 mg/dl (0.2-1.3); Carbon Dioxide 29 mmol/L (22.0-30.0); Globulin 3.4 g/dL (1.3-3.2); Glucose 105 mg/dl (74-100); HCG Qualitative, Serum Negative (Negative); Total Protein,Serum 7.3 g/dl (6.3-8.2)
[2023-05-26 22:15] LABS: Calcium 8.8 mg/dl (8.4-10.2)
[2023-05-26 22:30] VITALS: BP 109/67; PULSE 75; O2SAT 97
[2023-05-26] MEDS: SODIUM CHLORIDE 0.9% 10ML SYR (RAD ONLY) 10 ML IV (22:32)
[2023-05-26] MEDS: IOPAMIDOL-370 (76%);100ML BOTTLE 75 ML IV (22:32)
[2023-05-26 22:53] LABS: Bacteria,Urine Trace /lpf; Squamous Epithelial Cell,Urine Occasional #/hpf (0-5); WBC,Urine Occasional #/hpf (0-3)
[2023-05-26 23:17] VITALS: BP 123/68; PULSE 70; O2SAT 97
[2023-05-26 23:30] VITALS: BP 120/80; PULSE 74; O2SAT 96
[2023-05-26 23:41] VITALS: BP 120/80; PULSE 69; RESP 16; TEMP 37.2
== END 2023-05-26 23:43 | disposition home or self-care (01) ==
PROVIDERS: Emergency Provider Emergency Medicine; PCP Family Medicine
DX: R10.31 Right lower quadrant pain (principal); R10.32 Left lower quadrant pain; F17.210 Nicotine dependence, cigarettes, uncomplicated
CPT/HCPCS: 74177; 80053; 81001; 84703; 85025; 96361; 96374; 99285; J2405; Q9967

== ENCOUNTER 2023-07-19 15:31 | Emergency (ER) | payer MEDICAID, SELFPAY ==
[2023-07-19 16:10] VITALS: BP 141/89; PULSE 73; RESP 20; TEMP 36.7; O2SAT 98; BMI 50.1
--- NOTE | 2023-07-19 16:16 | EXP.UTC ---
Discharge Plan Disposition Patient Disposition: Home, Self-Care Condition: Good Prescriptions Prescriptions: New azithromycin [Zithromax] 250 mg tablet 250 mg PO UD DOSE PK Qty: 6 0RF Rx Instructions: Take two (2) tablets today, then one (1) tablet days #2 thru #5 oseltamivir [Tamiflu] 75 mg capsule 75 mg PO BID Qty: 10 0RF [id number] [Bromfed DM] 2-30-10 mg/5 mL Syrup 5 ml PO Q6H PRN (Reason: Cough) Qty: 240 0RF ondansetron 4 mg Tablet,Disintegrating 4 mg PO Q8H PRN (Reason: Nausea) Qty: 12 0RF No Action atorvastatin 20 mg tablet 20 mg PO DAILY Patient Comments: TAKE 1 TABLET BY MOUTH EVERY DAY AT BEDTIME cetirizine 10 mg tablet 10 mg PO DAILY Patient Comments: TAKE ONE TABLET BY MOUTH ONCE DAILY montelukast 10 mg tablet 10 mg PO DAILY Patient Comments: TAKE 1 TABLET BY MOUTH EVERY DAY escitalopram oxalate 20 mg tablet 20 mg PO DAILY Patient Comments: TAKE 1 TABLET BY MOUTH EVERY DAY DIRECTED naproxen 375 mg tablet 375 mg PO BID PRN (Reason: pain) Qty: 14 0RF Referrals Follow up/Referrals: Rene Moura MD [Primary Care Provider] - See instructions Activity Restrictions/Add. Instructions Additional Instructions/Restrictions: Drink plenty of fluids. Take tylenol or ibuprofen for pain or fever. Take the medications as directed. Follow up with your regular doctor. GO TO THE ER FOR ANY WORSENING SYMPTOMS Clinical Impressions Clinical Impression: Influenza B, Bronchitis Instructions Patient Instructions: Influenza, DI for Influenza -- Adult, Oseltamivir Discharge ED Provider: Canelo Harris [facility] General Stated complaint: cough, sagar Time Seen by Provider: 07/19/23 16:16 History of Present Illness Provider Complaint: She states that for the past 2 days she has had low grade fever, chills, body aches, scratchy throat, sinus drainage and a dry cough. Related Data Home Medications Medication Instructions Recorded Confirmed atorvastatin 20 mg tablet 20 mg PO DAILY 05/22/23 05/26/23 cetirizine 10 mg tablet 10 mg PO DAILY 05/22/23 05/26/23 escitalopram oxalate 20 mg tablet 20 mg PO DAILY 05/22/23 05/26/23 montelukast 10 mg tablet 10 mg PO DAILY 05/22/23 05/26/23 Previous Rx's Medication Instructions Recorded naproxen 375 mg tablet 375 mg PO BID PRN pain #14 tabs 05/22/23 azithromycin 250 mg tablet 250 mg PO UD DOSE PK #6 tabs 07/19/23 (Zithromax) [id number]-mbyqymrikkblkyf-CQ 5 ml PO Q6H PRN Cough #240 mL 07/19/23 2 mg-30 mg-10 mg/5 mL oral syrup (Bromfed DM) ondansetron 4 mg disintegrating 4 mg PO Q8H PRN Nausea #12 tabs 07/19/23 tablet oseltamivir 75 mg capsule (Tamiflu) 75 mg PO BID #10 caps 07/19/23 Allergies Allergy/AdvReac Type Severity Reaction Status Date / Time No Known Allergies Allergy Verified 04/26/23 18:36 [facility] Disclaimer: The information contained in this section may have been updated after the patient was seen, as this information can be updated by other users. Medical History (Updated 07/19/23 @ 16:43 by Canelo Harris APRN) delivery delivered GERD (gastroesophageal reflux disease) Social History Smoking Status: Current every day smoker tobacco type: cigarettes packs per day: 1 alcohol intake: never substance use type: denies use current occupational status: unemployed and disabled Travel in the last 8 weeks: None ROS Obtained: Yes All systems reviewed & no additional complaints except as documented Constitutional Constitutional: Reports chills and Reports fever(s) Eyes Eyes: Denies eye discharge ENT Ears, Nose, Mouth, and Throat: Reports as per HPI Cardiovascular Cardiovascular: Denies chest pain Respiratory Respiratory: Denies chest congestion and Reports cough Gastrointestinal Gastrointestingal: Reports nausea; Denies abdominal pain, constipation, cramping, diarrhea or vomiting Musculoskeletal Musculoskeletal: Denies arthralgias Integumentary/Breasts Skin/Breast: Denies rash Neurologic Neurologic: Denies paresthesias Physical Exam General General appearance: alert and in no apparent distress Eye Eye exam: Present normal appearance, PERRL and EOMI ENT ENT exam: Present mucous membranes moist and normal external ear exam Expanded ENT Exam External ear exam: Present normal external inspection TM/Canal exam: Bilateral TM: erythema and bulging Nose exam: Absent sinus tenderness Nasal speculum exam: Bilateral: normal Mouth exam: Present normal external inspection; Absent drooling Teeth exam: Present normal inspection Throat exam: Present tonsillar erythema and tonsillomegaly Neck Neck exam: Present normal inspection, full ROM and trachea midline; Absent tenderness, lymphadenopathy or thyromegaly Chest Chest inspection: Present normal inspection and symmetric chest wall rise; Absent tenderness or rash Respiratory Respiratory exam: Present normal lung sounds bilaterally; Absent respiratory distress, wheezes, stridor or accessory muscle use Cardiovascular Cardiovascular exam: Present regular rate, normal rhythm and normal heart sounds Abdominal Exam Abdominal exam: Present soft; Absent distention, tenderness, guarding, rebound or rigidity Extremities Exam Extremities exam: Present normal inspection, full ROM and normal capillary refill; Absent tenderness or calf tenderness Back Exam Back exam: Present normal inspection and full ROM; Absent tenderness Neurological Exam Neurological exam: Present alert and oriented X3 Psychiatric Psychiatric exam: Present normal affect and normal mood Skin Skin exam: Present warm, dry, intact and normal color Lymphatic Lymphatic Findings: no adenopathy Medical Decision Making Medical Records Medical records reviewed: No I reviewed the patient's medical records. Kumar Inquiry Pt receiving controlled substance: No Lab Data Lab results reviewed: Yes I reviewed the patient's lab results.
[2023-07-19 16:50] LABS: UTC Strep Screen (Rapid) Negative (Negative)
[2023-07-19 16:51] VITALS: BP 141/89; PULSE 73; RESP 20; TEMP 36.7; O2SAT 98
[2023-07-19 16:51] LABS: UTC Influenza A Antigen Negative (Negative); UTC Influenza B Antigen Positive (Negative)
== END 2023-07-19 16:51 | disposition home or self-care (01) ==
PROVIDERS: Emergency Provider Nurse Practitioner Family; PCP Family Medicine
DX: J10.1 Influenza due to other identified influenza virus with other respiratory manifestations (principal); J20.9 Acute bronchitis, unspecified; R50.9 Fever, unspecified; R05.9 Cough, unspecified; R07.0 Pain in throat; R09.81 Nasal congestion; R11.0 Nausea; F17.210 Nicotine dependence, cigarettes, uncomplicated; K21.9 Gastro-esophageal reflux disease without esophagitis
CPT/HCPCS: 87804; 87880; 99212; 99214; G0463

== ENCOUNTER 2023-07-21 21:52 | Emergency (ER) | payer MEDICAID, SELFPAY ==
[2023-07-21 21:54] VITALS: BP 133/97; PULSE 74; RESP 15; TEMP 36.6; O2SAT 100; BMI 48.6
--- NOTE | 2023-07-21 22:11 | ED_ITS ---
Discharge Plan Disposition Patient Disposition: Home, Self-Care Prescriptions Prescriptions: New dexamethasone 6 mg tablet 6 mg PO DAILY Qty: 5 0RF No Action atorvastatin 20 mg tablet 20 mg PO DAILY Patient Comments: TAKE 1 TABLET BY MOUTH EVERY DAY AT BEDTIME cetirizine 10 mg tablet 10 mg PO DAILY Patient Comments: TAKE ONE TABLET BY MOUTH ONCE DAILY montelukast 10 mg tablet 10 mg PO DAILY Patient Comments: TAKE 1 TABLET BY MOUTH EVERY DAY escitalopram oxalate 20 mg tablet 20 mg PO DAILY Patient Comments: TAKE 1 TABLET BY MOUTH EVERY DAY DIRECTED naproxen 375 mg tablet 375 mg PO BID PRN (Reason: pain) Qty: 14 0RF azithromycin [Zithromax] 250 mg tablet 250 mg PO UD DOSE PK Qty: 6 0RF Rx Instructions: Take two (2) tablets today, then one (1) tablet days #2 thru #5 oseltamivir [Tamiflu] 75 mg capsule 75 mg PO BID Qty: 10 0RF ikhhvbmelbrjawg-[id number]-[id number] [Bromfed DM] 2-30-10 mg/5 mL Syrup 5 ml PO Q6H PRN (Reason: Cough) Qty: 240 0RF ondansetron 4 mg Tablet,Disintegrating 4 mg PO Q8H PRN (Reason: Nausea) Qty: 12 0RF Referrals Follow up/Referrals: Rene Moura MD [Primary Care Provider] - See instructions Activity Restrictions/Add. Instructions Additional Instructions/Restrictions: Call your family doctor to establish care for this visit to the emergency department and schedule follow-up within 48 hours to ensure improvement. If you have any worsening of your condition or any other concerning signs or symptoms, return to the emergency department or your primary care doctor for further evaluation. Clinical Impressions Clinical Impression: Acute viral laryngitis Discharge ED Provider: Paco Still General Adult HPI General Stated complaint: feels like throat is closing,has flu Time Seen by Provider: 07/21/23 21:59 History of Present Illness HPI narrative: 28-year-old female no relevant medical history presenting with sore throat and feels as if her throat is closing. Was diagnosed with flu 3 days prior to this visit. Started on Tamiflu and Z-Carrington, also given Zofran. Patient states that today, 3, she woke up and started having sore throat. She states that it is difficult to swallow secondary to pain, but still able to tolerate p.o. intake. No fevers or chills, chest pain, shortness of breath, or any other concerns. Has been tolerating meds without issue. Related Data Home Medications Medication Instructions Recorded Confirmed atorvastatin 20 mg tablet 20 mg PO DAILY 05/22/23 05/26/23 cetirizine 10 mg tablet 10 mg PO DAILY 05/22/23 05/26/23 escitalopram oxalate 20 mg tablet 20 mg PO DAILY 05/22/23 05/26/23 montelukast 10 mg tablet 10 mg PO DAILY 05/22/23 05/26/23 Previous Rx's Medication Instructions Recorded naproxen 375 mg tablet 375 mg PO BID PRN pain #14 tabs 05/22/23 azithromycin 250 mg tablet 250 mg PO UD DOSE PK #6 tabs 07/19/23 (Zithromax) [id number]-[id number]-FY 5 ml PO Q6H PRN Cough #240 mL 07/19/23 2 mg-30 mg-10 mg/5 mL oral syrup (Bromfed DM) ondansetron 4 mg disintegrating 4 mg PO Q8H PRN Nausea #12 tabs 07/19/23 tablet oseltamivir 75 mg capsule (Tamiflu) 75 mg PO BID #10 caps 07/19/23 dexamethasone 6 mg tablet 6 mg PO DAILY #5 tabs 07/21/23 Allergies Allergy/AdvReac Type Severity Reaction Status Date / Time No Known Allergies Allergy Verified 07/19/23 16:49 [facility] Disclaimer: The information contained in this section may have been updated after the patient was seen, as this information can be updated by other users. Medical History (Updated 07/21/23 @ 22:20 by Paco Still MD) delivery delivered GERD (gastroesophageal reflux disease) Social History Smoking Status: Current every day smoker tobacco type: cigarettes packs per day: 1 alcohol intake: never substance use type: denies use current occupational status: unemployed and disabled Travel in the last 8 weeks: None ROS Obtained: Yes All systems reviewed & no additional complaints except as documented Physical Exam General General appearance: alert and in no apparent distress Head Head exam: atraumatic and normocephalic Eye Eye exam: Present normal appearance, PERRL and EOMI ENT ENT exam: Present mucous membranes moist and other (Laryngitis with raspy voice. No evidence of stridor) Neck Neck exam: Present normal inspection, full ROM and trachea midline; Absent meningismus Respiratory Respiratory exam: Present normal lung sounds bilaterally; Absent respiratory distress, wheezes, stridor, accessory muscle use or prolonged expiratory phase Cardiovascular Cardiovascular exam: Present regular rate and normal rhythm Abdominal Exam Abdominal exam: Present soft; Absent distention, tenderness, guarding, rebound or rigidity Extremities Exam Extremities exam: Absent edema Neurological Exam Neurological exam: Present alert, oriented X3, CN II-XII intact and normal gait; Absent motor sensory deficit Skin Skin exam: Present warm and dry; Absent diaphoresis or erythema Medical Decision Making Medical Records Medical records reviewed: Yes I reviewed the patient's medical records. Kumar Inquiry Pt receiving controlled substance: No Kumar was queried for this patient: No Medical Decision Narrative: 28-year-old female no relevant medical history presenting with sore throat and feels as if her throat is closing. Was diagnosed with flu 3 days prior to this visit. Started on Tamiflu and Z-Carrington, also given Zofran. Patient states that today, 07/20, she woke up and started having sore throat. She states that it is difficult to swallow secondary to pain, but still able to tolerate p.o. intake. No fevers or chills, chest pain, shortness of breath, or any other concerns. Has been tolerating meds without issue. History was obtained via conversation with patient. On arrival, patient hemodynamically stable, alert, oriented x4, appropriate, GCS 15, moving all extremities spontaneously, pupils equal and reactive to light. Full physical exam performed and significant for well-appearing woman in no acute distress. Lungs are clear to auscultation bilaterally. Patient's saturations and hemodynamics are unremarkable. Patient has obvious laryngitis with raspy voice, but no muffling. No evidence of stridor, meningismus, or increased work of breathing. Given patient presentation, workup, history, this most likely represents viral laryngitis. Patient was given 10 mg Decadron here in the emergency department and prednisone was written in case symptoms do not improve by Sunday, 07/22. Because patient at baseline without signs or symptoms of clinical decompensation, deemed appropriate for discharge. Results were relayed to patient who voiced understanding and were agreeable to outpatient management and follow up. At the time of discharge the patient was hemodynamically stable, tolerating PO, and mobilizing appropriately. Critical Care Critical Care Time Critical Care Time: No
[2023-07-21] MEDS: DEXAMETHASONE 4MG TABLET 10 MG PO (22:27)
[2023-07-21 22:30] VITALS: BP 149/95; PULSE 91; RESP 15; TEMP 36.7; O2SAT 97
== END 2023-07-21 22:33 | disposition home or self-care (01) ==
PROVIDERS: Emergency Provider Emergency Medicine; PCP Family Medicine
DX: J04.0 Acute laryngitis (principal); R13.10 Dysphagia, unspecified; B34.9 Viral infection, unspecified; K21.9 Gastro-esophageal reflux disease without esophagitis; F17.210 Nicotine dependence, cigarettes, uncomplicated
CPT/HCPCS: 99283

== ENCOUNTER 2023-09-06 13:07 | Emergency (ER) | payer MEDICAID, SELFPAY ==
[2023-09-06 13:25] VITALS: BP 127/76; PULSE 85; RESP 19; TEMP 36.8; O2SAT 98; BMI 55.4
[2023-09-06 13:34] LABS: UTC Pregnancy Test, Urine Negative (Negative)
[2023-09-06 13:40] LABS: Apearance,Urine Clear (Clear); Bilirubin,Urine Negative (Negative); Blood, Urine Negative (Negative); Color,Urine Dark Yellow (Yellow); Glucose,Urine (UA) Negative (Negative); Ketones,Urine Negative (Negative); Protein,Urine Negative (Negative)
[2023-09-06 13:41] LABS: UTC Leukocyte Esterase,Urine Negative (Negative); UTC Nitrate,Urine Negative (Negative); Urobilinogen,Urine 0.2 EU/dl (0.2)
--- NOTE | 2023-09-06 13:46 | ED_ITS ---
Discharge Plan Disposition Patient Disposition: Home, Self-Care Condition: Good Prescriptions Prescriptions: New naproxen 500 mg tablet 500 mg PO BID PRN (Reason: pain) Qty: 20 0RF cyclobenzaprine 5 mg tablet 5 mg PO TID PRN (Reason: muscle spasm) Qty: 12 0RF No Action atorvastatin 20 mg tablet 20 mg PO HS escitalopram oxalate 20 mg tablet 20 mg PO DAILY Referrals Follow up/Referrals: Giorgi Loyola [Primary Care Provider] - See instructions Activity Restrictions/Add. Instructions Additional Instructions/Restrictions: *Naproxen as prescribed as needed for pain/inflammation *Not additional anti-inflammatory like Ibuprofen, motrin, aleve, advil with the above amount of Naproxen. You can still take Tylenol every 4 hours as needed if you need something else for pain *Ice 20 minutes every 2 hours for the first 48 hours after the initial injury followed by moist heat every 20 minutes 3-4 times a day to affected area *Muscle relaxer every 8 hours as needed for muscle spasms but remember, it WILL cause drowsiness You cannot take it and drive, operate machinery or care for small children. *Keep this area active, no movement leads to more stiffness, However take it easy and avoid heavy lifting pushing or pulling *Follow up with you family doctor if no improvement for further treatment Clinical Impressions Clinical Impression: Muscle spasm Instructions Patient Instructions: DI for Muscle Spasm Discharge ED Provider: Kelle Barrow [facility] General Stated complaint: pain in middle of back Mode of Arrival: Ambulatory Source of Information: Patient Limitations: No Limitations Time Seen by Provider: 09/06/23 13:46 Description of Symptoms (Recalled from Triage Doc. by RN): PATIENT C/O LOWER BACK PAIN THAT STARTED YESTERDAY. NO KNOWN INJURY HEENT Symptoms (Recalled from RN notes): No Resp Symptoms (Recalled from RN notes): No Skin Symptoms (Recalled from RN notes): No MS Symptoms (Recalled from RN notes): Yes Functional Status (Recalled from RN notes): WNL History of Present Illness Provider Complaint: Patient states that she was putting her 1yr old down yesterday when she felt something in her mid to lower back pull and pain shot up her back States every since certain ways she moves she feels like her right lower back feels tight and spasms Denies radiation of pain and denies loss of control of bowel or bladder Related Data Home Medications Medication Instructions Recorded Confirmed atorvastatin 20 mg tablet 20 mg PO HS 09/06/23 09/06/23 escitalopram oxalate 20 mg tablet 20 mg PO DAILY 09/06/23 09/06/23 Previous Rx's Medication Instructions Recorded cyclobenzaprine 5 mg tablet 5 mg PO TID PRN muscle spasm #12 09/06/23 tabs naproxen 500 mg tablet 500 mg PO BID PRN pain #20 tabs 09/06/23 Allergies Allergy/AdvReac Type Severity Reaction Status Date / Time No Known Allergies Allergy Verified 07/19/23 16:49 Worker's Comp Is this a Worker's Comp case?: No [facility] Disclaimer: The information contained in this section may have been updated after the patient was seen, as this information can be updated by other users. Medical History (Updated 09/06/23 @ 14:01 by Kelle Barrow APRN) Depression Anxiety Hyperlipidemia delivery delivered GERD (gastroesophageal reflux disease) Surgical History (Updated 09/06/23 @ 13:35 by Cristina Benítez RN) History of cholecystectomy Social History Smoking Status: Current every day smoker tobacco type: cigarettes packs per day: 1 alcohol intake: never substance use type: denies use current occupational status: unemployed and disabled Travel in the last 8 weeks: None ROS Obtained: Yes All systems reviewed & no additional complaints except as documented and Yes Systems reviewed as appropriate & no additional complaints except as documented Constitutional Constitutional: Reports system reviewed and no additional complaints, except as documented, Reports as per HPI, Denies body ache, Denies chills and Denies fever(s) ENT Ears, Nose, Mouth, and Throat: Reports system reviewed and no additional complaints, except as documented and Reports as per HPI Cardiovascular Cardiovascular: Reports system reviewed and no additional complaints, except as documented and Reports as per HPI Respiratory Respiratory: Reports system reviewed and no additional complaints, except as documented and Reports as per HPI Gastrointestinal Gastrointestingal: Reports system reviewed and no additional complaints, except as documented and as per HPI Genitourinary Female Genitourinary: Reports system reviewed and no additional complaints, except as documented and Reports as per HPI Musculoskeletal Musculoskeletal: Reports system reviewed and no additional complaints, except as documented, Reports as per HPI, Reports back pain and Reports other (muscle spasms in right lower back since feeling something pull in her back) Physical Exam General General appearance: alert and in no apparent distress ENT ENT exam: Present mucous membranes moist Respiratory Respiratory exam: Present normal lung sounds bilaterally; Absent respiratory distress or wheezes Cardiovascular Cardiovascular exam: Present regular rate, normal rhythm and normal heart sounds Back Exam Back exam: Present tenderness and muscle spasm Back 1 view image: 2 1. reports tightness and spasms in right lower back that is worse with movement Denies radiation of mike and denies loss of control of bowel or bladder Neurological Exam Neurological exam: Present alert, oriented X3 and normal gait Medical Decision Making Kumar Inquiry Pt receiving controlled substance: No Kumar was queried for this patient: No Vital Signs: 09/06/23 13:25 Temperature 98.3 F Temperature Source Oral Pulse Rate [Left Brachial] 85 Respiratory Rate 19 Blood Pressure [Left Arm] 127/76 Blood Pressure Mean [Left Arm] 93 Blood Pressure Source [Left Arm] Automatic Cuff Blood Pressure Position [Left Arm] Sitting 02 Sat by Pulse Oximetry 98 Oxygen Delivery Method Room Air Lab Data Lab results reviewed: Yes I reviewed the patient's lab results. Lab Results 09/06/23 13:24: [facility] Negative 09/06/23 13:37: Urine Color Dark yellow, Urine Appearance Clear, Urine pH 6.0, Ur Specific [place] 1.020, Urine Protein Negative, Urine Glucose (UA) Negative, Urine Ketones Negative, Urine Blood Negative, Urine Nitrate Negative, Urine Bilirubin Negative, Urine Urobilinogen 0.2, Ur Leukocyte Esterase Negative Medical Decision Narrative: Patient states that she has taken Naproxen and Flexeril in the past without complications or reactions
[2023-09-06 14:05] VITALS: BP 127/76; PULSE 85; RESP 19; TEMP 36.8; O2SAT 98
== END 2023-09-06 14:09 | disposition home or self-care (01) ==
PROVIDERS: Emergency Provider Nurse Practitioner; PCP Family Medicine
DX: M54.6 Pain in thoracic spine (principal); M62.830 Muscle spasm of back; F17.210 Nicotine dependence, cigarettes, uncomplicated; K21.9 Gastro-esophageal reflux disease without esophagitis; E78.5 Hyperlipidemia, unspecified
CPT/HCPCS: 81003; 81025; 99212; 99214; G0463

== ENCOUNTER 2023-09-25 21:32 | Emergency (ER) | payer MEDICAID, SELFPAY ==
[2023-09-25 21:32] VITALS: BP 158/109; PULSE 104; RESP 20; TEMP 36.6; O2SAT 97; BMI 48.6
--- NOTE | 2023-09-25 21:33 | ECG_ITS ---
APPROVED REPORT Exam: Resting ECG HR:96 bpm ECG Measurements Heart Rate 96 AXES WV 148 P 65 QRSd 93 QRS 81 QT 332 T 51 QTc 386 Conclusion SINUS RHYTHM MODERATE ST DEPRESSION [0.05+ mV ST DEPRESSION] ABNORMAL ECG UNCONFIRMED REPORT Electronically signed by : SARI VACA, 09/26/2023 05:28:52
--- NOTE | 2023-09-25 21:34 | XR_ITS ---
PROCEDURE INFORMATION: Exam: XR Chest Exam date and time: 09/25/2023 9:36 PM Age: 28 years old Clinical indication: Other: Chest pain; Additional info: Cp TECHNIQUE: Imaging protocol: Radiologic exam of the chest. Views: 1 view. COMPARISON: CT ABDOMEN PELVIS W CON 05/26/2023 10:24 PM FINDINGS: Lungs: Unremarkable. No consolidation. Pleural spaces: Unremarkable. No pleural effusion. No pneumothorax. Heart/Mediastinum: Unremarkable. No cardiomegaly. Bones/joints: Unremarkable. IMPRESSION: No acute findings.
[2023-09-25] MEDS: ASPIRIN 81MG CHEWABLE TABLET 324 MG PO (21:42)
[2023-09-25] MEDS: BELLADONNA ALKALOIDS 60 ML ML PO (21:42)
[2023-09-25 21:47] LABS: Basophils # 0.2 K/mm3 (0-0.2); Basophils % 1.8 % (0.1-2.0); Eosinophils # 0.6 K/mm3 (0.0-0.4); Eosinophils % 4.6 % (0.1-12.0); Hematocrit 44.5 % (37.0-47.0); Hemoglobin 14.4 g/dL (12.2-16.2); Lymphocytes # 4.6 K/mm3 (0.7-4.5); Lymphocytes % 35.8 % (10-50); Mean Corpuscular HGB Conc 32.3 g/dL (31.8-35.4); Mean Corpuscular Hemoglobin 27.4 pg (27.0-31.2); Mean Corpuscular Volume 84.7 fl (81-99); Mean Platelet Volume 7.5 fl (7.4-10.4); Monocytes # 0.7 K/mm3 (0.1-1.0); Monocytes % 5.3 % (1.7-9.3); Neutrophils # 6.7 K/mm3 (1.8-7.8); Neutrophils % 52.5 % (37.0-80.0); Platelet Count 352 K/mm3 (142-424); Red Blood Count 5.26 M/mm3 (4.20-5.40); Red Cell Distribution Width 14.4 % (11.5-17.5); White Blood Count 12.8 K/mm3 (4.8-10.8)
--- NOTE | 2023-09-25 21:53 | ED_ITS ---
Discharge Plan Disposition Patient Disposition: Left Against Medical Advice Prescriptions Prescriptions: No Action atorvastatin 20 mg tablet 20 mg PO HS escitalopram oxalate 20 mg tablet 20 mg PO DAILY naproxen 500 mg tablet 500 mg PO BID PRN (Reason: pain) Qty: 20 0RF cyclobenzaprine 5 mg tablet 5 mg PO TID PRN (Reason: muscle spasm) Qty: 12 0RF Referrals Follow up/Referrals: Provider,Referral, MD [Referring] - See instructions Activity Restrictions/Add. Instructions Additional Instructions/Restrictions: Please follow-up with your primary care provider. Please return to the emergency department if you develop any new or worsening symptoms or become concerned for your health. Clinical Impressions Clinical Impression: Chest pain, Acute dyspnea Discharge ED Provider: Eber Hector <Paco Still MD - Last Filed: 09/25/23 23:03> General Chief Complaint: Chest Pain Stated Complaint: CP Time Seen by Provider: 09/25/23 21:33 Mode of Arrival: Ambulatory Source of Information: Patient Limitations: No Limitations Description of Symptoms (Recalled from ER Triage Doc. by RN): Pt presents with chest pain that began at 2115 while watching television. Pt complains of nausea and pain that radiates across anterior of her chest. No medical hx. Denies any other symptoms at this time History of Present Illness HPI narrative: Please note that above description of symptoms, in this electronic medical record under categorization of recalled from ER triage doctor by RN are reflective of an initial nursing assessment, however, is not reflective of my full history and physical exam that was personally taken and clarified. Consequentially, this preceding description of symptoms, which may include the patient's categorized chief complaint in the EMR, do not reflect my personal clinical impression, and the ultimate description of history of present illness and patient stated complaints should be deferred to this section of the note. Unless stated otherwise or congruent with this section of the note, additional signs, symptoms, or incongruence should be interpreted as inaccurate with my clinical impression. Related Data Home Medications Medication Instructions Recorded Confirmed atorvastatin 20 mg tablet 20 mg PO HS 09/06/23 09/06/23 escitalopram oxalate 20 mg tablet 20 mg PO DAILY 09/06/23 09/06/23 Previous Rx's Medication Instructions Recorded cyclobenzaprine 5 mg tablet 5 mg PO TID PRN muscle spasm #12 09/06/23 tabs naproxen 500 mg tablet 500 mg PO BID PRN pain #20 tabs 09/06/23 Allergies Allergy/AdvReac Type Severity Reaction Status Date / Time No Known Allergies Allergy Verified 07/19/23 16:49 PFSH <Paco Still MD - Last Filed: 09/25/23 23:03> PFS Disclaimer: The information contained in this section may have been updated after the patient was seen, as this information can be updated by other users. Medical History (Updated 09/25/23 @ 23:41 by Eber Hector MD) Depression Anxiety Hyperlipidemia delivery delivered GERD (gastroesophageal reflux disease) Surgical History (Updated 09/06/23 @ 13:35 by Cristina Benítez RN) History of cholecystectomy Social History Smoking Status: Current every day smoker tobacco type: cigarettes packs per day: 1 alcohol intake: never substance use type: denies use current occupational status: unemployed and disabled Travel in the last 8 weeks: None <Paco Still MD - Last Filed: 09/25/23 23:03> ROS Obtained: Yes All systems reviewed & no additional complaints except as documented Physical Exam <Paco Still MD - Last Filed: 09/25/23 23:03> General General appearance: alert Neck Neck exam: Present trachea midline Chest Chest inspection: Present normal inspection and symmetric chest wall rise Respiratory Respiratory exam: Present normal lung sounds bilaterally; Absent respiratory distress, wheezes, stridor, accessory muscle use or prolonged expiratory phase Cardiovascular Cardiovascular exam: Present regular rate and normal rhythm Extremities Exam Extremities exam: Absent edema Neurological Exam Neurological exam: Present alert, oriented X3 and CN II-XII intact Skin Skin exam: Present warm and dry; Absent cyanosis, diaphoresis or pallor HEART Score <Paco Still MD - Last Filed: 09/25/23 23:03> HEART Score HEART Score assessment performed?: Yes History (anamnesis): Moderately suspicious ECG: Non-specific disturbance Age: <45 years Risk factors: 1-2 risk factors Troponin: </= normal limit HEART Score: 3 <Eber Hector MD - Last Filed: 09/25/23 23:41> HEART Score HEART Score: 3 Critical Care <Paco Still MD - Last Filed: 09/25/23 23:03> Critical Care Time Critical Care Time: No Medical Decision Making <Paco Still MD - Last Filed: 09/25/23 23:03> Medical Records Medical records reviewed: Yes I reviewed the patient's medical records. Kumar Inquiry Pt receiving controlled substance: No Kumar was queried for this patient: No Vital Signs Vital Signs: 09/25/23 21:32 09/25/23 22:00 09/25/23 23:18 Temperature 98 F Temperature Source Oral Pulse Rate 90 101 H Pulse Rate [Left] 104 H Respiratory Rate 20 22 Blood Pressure 110/79 Blood Pressure [Right Arm] 158/109 H Blood Pressure Mean [Right Arm] 125 Blood Pressure Source [Right Arm] Automatic Cuff 02 Sat by Pulse Oximetry 97 98 Oxygen Delivery Method Room Air Room Air Lab Data Labs: Lab Results 09/25/23 21:30: WBC 12.8 H, RBC 5.26, Hgb 14.4, Hct 44.5, MCV 84.7, MCH 27.4, MCHC 32.3, RDW 14.4, Plt Count 352, MPV 7.5, Neut % (Auto) 52.5, Lymph % (Auto) 35.8, Beauregard % (Auto) 5.3, Eos % (Auto) 4.6, Baso % (Auto) 1.8, Neut # (Auto) 6.7, Lymph # (Auto) 4.6 H, Beauregard # (Auto) 0.7, Eos # (Auto) 0.6 H, Baso # (Auto) 0.2, D-Dimer 0.54 H, Sodium 140, Potassium 4.0, Chloride 106, Carbon Dioxide 27, Anion Gap 11.0, BUN 9, Creatinine 1.00, Estimated Creat Clear 85, Estimated GFR 67, Est GFR ( Amer) 80, Glucose 90, Calcium 9.3, Total Bilirubin 0.4, AST 37 H, ALT 27, Alkaline Phosphatase 66, Troponin I < 0.01, Total Protein 7.3, Albumin 4.0, Globulin 3.3 H, Albumin/Globulin Ratio 1.2, Lipase 151 09/25/23 21:39: HCG, Quant < 2 09/25/23 21:30 09/25/23 21:30 Response Orders (Tests/Meds): ED MEDICATIONS Discontinued Medications Generic Name Dose Route Start Last Admin Trade Name Freq PRN Reason Stop Dose Admin Albuterol/Ipratropium 6 ml 09/25/23 22:24 09/25/23 23:17 Ipratropium/Albuterol 3 Ml Neb IH 09/25/23 22:25 6 ml ONCE ONE Administration Aspirin 324 mg 09/25/23 21:33 09/25/23 21:42 Aspirin 81mg Chewable Tablet PO 09/25/23 21:34 324 mg ONCE ONE Administration Belladonna Alkaloids 60 ml 09/25/23 21:33 09/25/23 21:42 Belladonna Alkaloids 60 Ml Ml PO 09/25/23 21:34 60 ml ONCE ONE Administration Methylprednisolone Sodium Succinate 125 mg 09/25/23 22:24 09/25/23 22:52 Methylprednisolone Sod Succ 125mg Vial IV 09/25/23 22:25 125 mg ONCE ONE Administration ORDERS Category Date Time Status CT angio chest PE protocol Stat Cat Scan 09/25/23 22:23 Ordered CXR --portable [XR chest portable] Stat Exams 09/25/23 21:34 Completed CBC w/Auto Diff [Complete Blood Count Auto Diff] Stat Lab 09/25/23 21:30 Completed CMP [Comprehensive Metabolic Panel] Stat Lab 09/25/23 21:30 Completed D-Dimer Stat Lab 09/25/23 21:30 Completed HCG,Quantitative Stat Lab 09/25/23 21:39 Completed Lipase Stat Lab 09/25/23 21:30 Completed Trop I [Troponin I] Stat Lab 09/25/23 21:30 Completed Troponin I Q3H Lab 09/26/23 00:45 Ordered Troponin I Q3H Lab 09/26/23 03:45 Ordered MDM Narrative Medical Decision Narrative: Is a 28-year-old female no relevant medical history presenting with chest pain. Chest pain started just before arrival. States that she was sitting still doing nothing in particular on the couch when she had immediate onset pain. Initially 5 out of 10, now 7 out of 10 and feels like a pressure. Does not radiate. Associated with shortness of breath. Not exertional, not positional. Nausea without vomiting, no diaphoresis. Has not taken any meds for this and has never had anything like this in the past. No strong family history of early cardiac disease. Patient does smoke half pack per day. History was obtained via conversation with patient. On arrival, patient hemodynamically stable, alert, oriented x4, appropriate, GCS 15, moving all extremities spontaneously, pupils equal and reactive to light. Full physical exam performed and significant for anxious appearing woman in no acute distress. Lungs are clear to auscultation bilaterally anteriorly and posteriorly. Cardiac exam within normal limits, no lower extremity edema, pulses equal and symmetric. Differential includes PUD, gastritis, pancreatitis, microvascular coronary artery disease, CHF, ACS, TX, coronary artery dissection, pneumothorax, PE, dissection, pericarditis, myocarditis, pneumothorax, aortic aneurysm, pneumonia, bronchitis, among others. Patient was given aspirin, GI cocktail, DuoNeb and Solu-Medrol for symptomatic management and correction of underlying abnormalities. Workup independently interpreted and significant for leukocytosis 12.8, dimer elevated 0.54. Negative chemistry. Troponin negative. hCG was negative. See radiology read for full review of final results. Independent interpretation of EKG shows sinus rhythm 96 beats a minute with mild ST depression in lead II without reciprocal change. Appears largely nondiagnostic. Patient placed on continuous cardiac monitoring and continuous pulse ox with initial blood pressure 158/109, heart rate 104, saturation 97% on room air. Heart score 3. Patient was placed in observation beginning at 11 PM in order to rule out evolving TX with delta troponins, rule out PE with CT PE and determine need for admission versus home-going. The patient was provided meds and monitoring while awaiting results. Prior to results of CT and delta troponin, care handed off to oncoming physician. <Eber Hector MD - Last Filed: 09/25/23 23:41> Vital Signs Vital Signs: 09/25/23 21:32 09/25/23 22:00 09/25/23 23:18 Temperature 98 F Temperature Source Oral Pulse Rate 90 101 H Pulse Rate [Left] 104 H Respiratory Rate 20 22 Blood Pressure 110/79 Blood Pressure [Right Arm] 158/109 H Blood Pressure Mean [Right Arm] 125 Blood Pressure Source [Right Arm] Automatic Cuff 02 Sat by Pulse Oximetry 97 98 Oxygen Delivery Method Room Air Room Air Lab Data Labs: Lab Results 09/25/23 21:30: WBC 12.8 H, RBC 5.26, Hgb 14.4, Hct 44.5, MCV 84.7, MCH 27.4, MCHC 32.3, RDW 14.4, Plt Count 352, MPV 7.5, Neut % (Auto) 52.5, Lymph % (Auto) 35.8, Beauregard % (Auto) 5.3, Eos % (Auto) 4.6, Baso % (Auto) 1.8, Neut # (Auto) 6.7, Lymph # (Auto) 4.6 H, Beauregard # (Auto) 0.7, Eos # (Auto) 0.6 H, Baso # (Auto) 0.2, D-Dimer 0.54 H, Sodium 140, Potassium 4.0, Chloride 106, Carbon Dioxide 27, Anion Gap 11.0, BUN 9, Creatinine 1.00, Estimated Creat Clear 85, Estimated GFR 67, Est GFR ( Amer) 80, Glucose 90, Calcium 9.3, Total Bilirubin 0.4, AST 37 H, ALT 27, Alkaline Phosphatase 66, Troponin I < 0.01, Total Protein 7.3, Albumin 4.0, Globulin 3.3 H, Albumin/Globulin Ratio 1.2, Lipase 151 09/25/23 21:39: HCG, Quant < 2 Response Orders (Tests/Meds): ED MEDICATIONS Discontinued Medications Generic Name Dose Route Start Last Admin Trade Name Freq PRN Reason Stop Dose Admin Albuterol/Ipratropium 6 ml 09/25/23 22:24 09/25/23 23:17 Ipratropium/Albuterol 3 Ml Neb IH 09/25/23 22:25 6 ml ONCE ONE Administration Aspirin 324 mg 09/25/23 21:33 09/25/23 21:42 Aspirin 81mg Chewable Tablet PO 09/25/23 21:34 324 mg ONCE ONE Administration Belladonna Alkaloids 60 ml 09/25/23 21:33 09/25/23 21:42 Belladonna Alkaloids 60 Ml Ml PO 09/25/23 21:34 60 ml ONCE ONE Administration Methylprednisolone Sodium Succinate 125 mg 09/25/23 22:24 09/25/23 22:52 Methylprednisolone Sod Succ 125mg Vial IV 09/25/23 22:25 125 mg ONCE ONE Administration ORDERS Category Date Time Status CT angio chest PE protocol Stat Cat Scan 09/25/23 22:23 Ordered CXR --portable [XR chest portable] Stat Exams 09/25/23 21:34 Completed CBC w/Auto Diff [Complete Blood Count Auto Diff] Stat Lab 09/25/23 21:30 Completed CMP [Comprehensive Metabolic Panel] Stat Lab 09/25/23 21:30 Completed D-Dimer Stat Lab 09/25/23 21:30 Completed HCG,Quantitative Stat Lab 09/25/23 21:39 Completed Lipase Stat Lab 09/25/23 21:30 Completed Trop I [Troponin I] Stat Lab 09/25/23 21:30 Completed Troponin I Q3H Lab 09/26/23 00:45 Ordered Troponin I Q3H Lab 09/26/23 03:45 Ordered MDM Narrative Medical Decision Narrative: Is a 28-year-old female no relevant medical history presenting with chest pain. Chest pain started just before arrival. States that she was sitting still doing nothing in particular on the couch when she had immediate onset pain. Initially 5 out of 10, now 7 out of 10 and feels like a pressure. Does not radiate. Associated with shortness of breath. Not exertional, not positional. Nausea without vomiting, no diaphoresis. Has not taken any meds for this and has never had anything like this in the past. No strong family history of early cardiac disease. Patient does smoke half pack per day. History was obtained via conversation with patient. On arrival, patient hemodynamically stable, alert, oriented x4, appropriate, GCS 15, moving all extremities spontaneously, pupils equal and reactive to light. Full physical exam performed and significant for anxious appearing woman in no acute distress. Lungs are clear to auscultation bilaterally anteriorly and posteriorly. Cardiac exam within normal limits, no lower extremity edema, pulses equal and symmetric. Differential includes PUD, gastritis, pancreatitis, microvascular coronary artery disease, CHF, ACS, TX, coronary artery dissection, pneumothorax, PE, dissection, pericarditis, myocarditis, pneumothorax, aortic aneurysm, pneumonia, bronchitis, among others. Patient was given aspirin, GI cocktail, DuoNeb and Solu-Medrol for symptomatic management and correction of underlying abnormalities. Workup independently interpreted and significant for leukocytosis 12.8, dimer elevated 0.54. Negative chemistry. Troponin negative. hCG was negative. See radiology read for full review of final results. Independent interpretation of EKG shows sinus rhythm 96 beats a minute with mild ST depression in lead II without reciprocal change. Appears largely nondiagnostic. Patient placed on continuous cardiac monitoring and continuous pulse ox with initial blood pressure 158/109, heart rate 104, saturation 97% on room air. Heart score 3. Patient was placed in observation beginning at 11 PM in order to rule out evolving TX with delta troponins, rule out PE with CT PE and determine need for admission versus home-going. The patient was provided meds and monitoring while awaiting results. Prior to results of CT and delta troponin, care handed off to oncoming physician. Krunal ALVAREZ: I assumed care of the patient at the time of handoff from the prior provider. At 1135 I was called to the patient's room. She reports that she needs to leave because of childcare issues. I had extensive discussion with patient regarding her presentation, diagnostic workup, and the risks and benefits of leaving. I informed her of the risk of and/or serious injury or illness if she left without full evaluation including CT PE and repeat troponin. She reported understanding of these risks and ultimately signed out AMA.
[2023-09-25 22:00] VITALS: BP 110/79; PULSE 90; RESP 22; O2SAT 98
[2023-09-25 22:02] LABS: Chloride 106 mmol/L (98-107); Sodium 140 mmol/L (136-145)
[2023-09-25 22:05] LABS: Alanine Aminotransferase 27 U/L (12-78); Albumin/Globulin Ratio 1.2 (1.1-1.8); Alkaline Phosphatase 66 U/L (38-126); Aspartate Amino Transferase 37 U/L (14-36); Bilirubin,Total 0.4 mg/dl (0.2-1.3); Blood Urea Nitrogen 9 mg/dl (7-17); Calcium 9.3 mg/dl (8.4-10.2); Carbon Dioxide 27 mmol/L (22.0-30.0); Creatinine Clearance Estimated 85 mL/min (50-200); Estimated Glomerular Filt Rate 67 ml/min (>60); GFR (African American) 80 ML/MIN (>60); Globulin 3.3 g/dL (1.3-3.2); Glucose 90 mg/dl (74-100); Lipase 151 U/L (23-300); Total Protein,Serum 7.3 g/dl (6.3-8.2)
[2023-09-25 22:12] LABS: D-Dimer 0.54 ug/mL (0.0-0.5)
[2023-09-25 22:18] LABS: Troponin I < 0.01 ng/ml (0.00-0.034)
[2023-09-25] MEDS: METHYLPREDNISOLONE SOD SUCC 125MG VIAL 125 MG IV (22:52)
[2023-09-25 23:00] LABS: HCG,Quantitative < 2 mIU/ml (0-5.42)
[2023-09-25] MEDS: IPRATROPIUM/ALBUTEROL 3 ML NEB 6 ML IH (23:17)
[2023-09-25 23:18] VITALS: PULSE 101
[2023-09-25 23:39] VITALS: BP 132/75; PULSE 82; RESP 16; TEMP 37; O2SAT 98
== END 2023-09-25 23:42 | disposition left against medical advice (07) ==
PROVIDERS: Emergency Medicine; Emergency Provider Emergency Medicine; PCP Family Medicine
DX: R07.9 Chest pain, unspecified (principal); R06.02 Shortness of breath; R11.0 Nausea; K21.9 Gastro-esophageal reflux disease without esophagitis; E78.5 Hyperlipidemia, unspecified; F17.210 Nicotine dependence, cigarettes, uncomplicated
CPT/HCPCS: 71045; 80053; 83690; 84484; 84702; 85025; 85378; 93005; 96374; 99284

== ENCOUNTER 2023-12-28 18:49 | Emergency (ER) | payer MEDICAID, SELFPAY ==
[2023-12-28 19:19] VITALS: BP 113/58; PULSE 91; RESP 16; TEMP 36.9; O2SAT 99; BMI 51.0
--- NOTE | 2023-12-28 19:29 | EXP.UTC ---
Discharge Plan Disposition Patient Disposition: Home, Self-Care Condition: Good Prescriptions Prescriptions: New ondansetron 4 mg Tablet,Disintegrating 4 mg PO Q8H PRN (Reason: Nausea) Qty: 12 0RF No Action atorvastatin 20 mg tablet 20 mg PO HS escitalopram oxalate 20 mg tablet 20 mg PO DAILY naproxen 500 mg tablet 500 mg PO BID PRN (Reason: pain) Qty: 20 0RF cyclobenzaprine 5 mg tablet 5 mg PO TID PRN (Reason: muscle spasm) Qty: 12 0RF Referrals Follow up/Referrals: Provider,Referral, MD [Primary Care Provider] - See instructions Activity Restrictions/Add. Instructions Additional Instructions/Restrictions: Drink plenty of fluids. Take tylenol for pain or fever. Take the medications as directed. Follow up with your regular doctor. GO TO THE ER FOR ANY WORSENING SYMPTOMS Clinical Impressions Clinical Impression: Gastroenteritis Instructions Patient Instructions: Viral Gastroenteritis, DI for Viral Gastroenteritis -- Adult, Ondansetron Print Language Print Language: Kittitian Discharge ED Provider: Canelo Harris [facility] General Stated complaint: vomiting,diarrhea Mode of Arrival: Ambulatory Source of Information: Patient Limitations: No Limitations Time Seen by Provider: 12/28/23 19:29 Description of Symptoms (Recalled from Triage Doc. by RN): Patient complaint of vomiting and diarrhea. HEENT Symptoms (Recalled from RN notes): No Resp Symptoms (Recalled from RN notes): No Skin Symptoms (Recalled from RN notes): No MS Symptoms (Recalled from RN notes): No Functional Status (Recalled from RN notes): wnl Related Data Home Medications ?Medication ?Instructions ?Recorded ?Confirmed atorvastatin 20 mg tablet 20 mg PO HS 09/06/23 09/06/23 escitalopram oxalate 20 mg tablet 20 mg PO DAILY 09/06/23 09/06/23 Previous Rx's ?Medication ?Instructions ?Recorded cyclobenzaprine 5 mg tablet 5 mg PO TID PRN muscle spasm #12 09/06/23 tabs naproxen 500 mg tablet 500 mg PO BID PRN pain #20 tabs 09/06/23 ondansetron 4 mg disintegrating 4 mg PO Q8H PRN Nausea #12 tabs 12/28/23 tablet Allergies Allergy/AdvReac Type Severity Reaction Status Date / Time No Known Allergies Allergy Verified 07/19/23 16:49 Worker's Comp Is this a Worker's Comp case?: No [facility] Disclaimer: The information contained in this section may have been updated after the patient was seen, as this information can be updated by other users. Medical History (Updated 12/28/23 @ 19:44 by Canelo Harris APRN) Depression Anxiety Hyperlipidemia delivery delivered GERD (gastroesophageal reflux disease) Surgical History (Updated 09/06/23 @ 13:35 by Cristina Benítez RN) History of cholecystectomy Social History Smoking Status: Current every day smoker tobacco type: cigarettes packs per day: 1 alcohol intake: never substance use type: denies use current occupational status: unemployed and disabled Travel in the last 8 weeks: None ROS Obtained: Yes All systems reviewed & no additional complaints except as documented Constitutional Constitutional: Denies chills, Denies fever(s) and Reports poor appetite ENT Ears, Nose, Mouth, and Throat: Denies dizziness and Denies sore throat Cardiovascular Cardiovascular: Denies dyspnea Respiratory Respiratory: Denies chest congestion, Denies cough and Denies dyspnea Gastrointestinal Gastrointestingal: Reports as per HPI; Denies abdominal pain Genitourinary Female Genitourinary: Denies difficulty voiding, Denies dysuria, Denies hematuria, Denies urinary frequency, Denies urinary incontinence, Denies urinary hesitancy and Denies urinary urgency Musculoskeletal Musculoskeletal: Denies arthralgias Integumentary/Breasts Skin/Breast: Denies rash Neurologic Neurologic: Denies dizziness Physical Exam General General appearance: alert and in no apparent distress Head Head exam: atraumatic and normocephalic Eye Eye exam: Present normal appearance, PERRL and EOMI ENT ENT exam: Present normal exam, normal oropharynx, mucous membranes moist, TM's normal bilaterally and normal external ear exam Neck Neck exam: Present normal inspection, full ROM and trachea midline; Absent tenderness, meningismus or lymphadenopathy Chest Chest inspection: Present normal inspection and symmetric chest wall rise; Absent tenderness, rash or abscess Respiratory Respiratory exam: Present normal lung sounds bilaterally; Absent respiratory distress, wheezes or stridor Cardiovascular Cardiovascular exam: Present regular rate and normal rhythm; Absent irregular rhythm, systolic murmur, diastolic murmur or JVD Abdominal Exam Abdominal exam: Present soft and hyperactive bowel sounds; Absent distention, tenderness, guarding, rebound, rigidity, psoas sign, obturator sign, heel tap sign, Asencio's sign, Rovsing's sign or tenderness at McBurney's Point Extremities Exam Extremities exam: Present normal inspection and full ROM; Absent tenderness Back Exam Back exam: Present normal inspection and full ROM; Absent tenderness, CVA tenderness (R) or CVA tenderness (L) Neurological Exam Neurological exam: Present alert, oriented X3 and CN II-XII intact Psychiatric Psychiatric exam: Present normal affect and normal mood Skin Skin exam: Present warm, dry, intact and normal color Lymphatic Lymphatic Findings: no adenopathy Medical Decision Making Medical Records Medical records reviewed: No I reviewed the patient's medical records. Kumar Inquiry Pt receiving controlled substance: No Vital Signs: 12/28/23 19:19 Temperature 98.5 F Temperature Source Oral Pulse Rate [Radial] 91 H Respiratory Rate 16 Blood Pressure [Right Arm] 113/58 L Blood Pressure Mean [Right Arm] 76 Blood Pressure Source [Right Arm] Automatic Cuff Blood Pressure Position [Right Arm] Sitting 02 Sat by Pulse Oximetry 99 Oxygen Delivery Method Room Air Lab Data Lab results reviewed: Yes I reviewed the patient's lab results.
[2023-12-28 20:11] VITALS: BP 113/58; PULSE 91; RESP 16; TEMP 36.9; O2SAT 99
== END 2023-12-28 20:12 | disposition home or self-care (01) ==
PROVIDERS: Emergency Provider Nurse Practitioner Family
DX: K52.9 Noninfective gastroenteritis and colitis, unspecified (principal); R11.2 Nausea with vomiting, unspecified
CPT/HCPCS: 99212; 99214; G0463

== ENCOUNTER 2024-02-06 21:17 | Emergency (ER) | payer MEDICAID, SELFPAY ==
[2024-02-06 21:18] VITALS: BP 104/68; PULSE 88; RESP 20; TEMP 36.8; O2SAT 97; BMI 49.4
--- NOTE | 2024-02-06 21:28 | ED_ITS ---
<Statement entered by Brook Lund DO - 02/07/24 21:18> I was consulted by the ANASTASIYA, and we discussed the complexity of the problems being addressed. I approved the treatment and management plan for this patient's care in the emergency department, thus performing a substantive portion of the medical decision making. Brook Lund DO Discharge Plan Disposition Patient Disposition: Home, Self-Care Prescriptions Prescriptions: No Action atorvastatin 20 mg tablet 20 mg PO HS escitalopram oxalate 20 mg tablet 20 mg PO DAILY naproxen 500 mg tablet 500 mg PO BID PRN (Reason: pain) Qty: 20 0RF cyclobenzaprine 5 mg tablet 5 mg PO TID PRN (Reason: muscle spasm) Qty: 12 0RF ondansetron 4 mg Tablet,Disintegrating 4 mg PO Q8H PRN (Reason: Nausea) Qty: 12 0RF Referrals Follow up/Referrals: Provider,Referral, MD [Primary Care Provider] - See instructions Activity Restrictions/Add. Instructions Additional Instructions/Restrictions: Please follow-up with your primary care provider. Please return to the emergency department if you develop any new or worsening symptoms or become concerned for your health. Clinical Impressions Clinical Impression: Fatty infiltration of liver, Abdominal pain Stand Alone Forms Stand Alone Forms: Work/School Release Instructions Patient Instructions: DI for Acute Abdominal Pain Print Language Print Language: Swedish Discharge ED Provider: Eber Hector General Adult HPI <BRETT Isidro - Last Filed: 02/07/24 21:07> General Chief complaint: Abdominal Pain Stated complaint: abdominal pain,nausea Time Seen by Provider: 02/06/24 21:27 History of Present Illness HPI narrative: Patient presents for right lower quadrant abdominal pain. Patient began having right lower quadrant pain 30 minutes prior to arrival in the ER. She reports nausea but no vomiting diarrhea. She is passing gas. She is not tried to eat or drink since it began. She has had a cholecystectomy and an appendectomy previously. She does not know whether or not she could be . Related Data Home Medications ?Medication ?Instructions ?Recorded ?Confirmed atorvastatin 20 mg tablet 20 mg PO HS 09/06/23 09/06/23 escitalopram oxalate 20 mg tablet 20 mg PO DAILY 09/06/23 09/06/23 Previous Rx's ?Medication ?Instructions ?Recorded cyclobenzaprine 5 mg tablet 5 mg PO TID PRN muscle spasm #12 09/06/23 tabs naproxen 500 mg tablet 500 mg PO BID PRN pain #20 tabs 09/06/23 ondansetron 4 mg disintegrating 4 mg PO Q8H PRN Nausea #12 tabs 12/28/23 tablet Allergies Allergy/AdvReac Type Severity Reaction Status Date / Time No Known Allergies Allergy Verified 07/19/23 16:49 PFSH <BRETT Isidro - Last Filed: 02/07/24 21:07> [facility] Disclaimer: The information contained in this section may have been updated after the patient was seen, as this information can be updated by other users. Medical History (Updated 02/07/24 @ 00:56 by Eber Hector MD) Depression Anxiety Hyperlipidemia delivery delivered GERD (gastroesophageal reflux disease) Surgical History (Updated 09/06/23 @ 13:35 by Cristina Benítez RN) History of cholecystectomy Social History Smoking Status: Current every day smoker tobacco type: cigarettes packs per day: 1 alcohol intake: never substance use type: denies use current occupational status: unemployed and disabled Travel in the last 8 weeks: None <BRETT Isidro - Last Filed: 02/07/24 21:07> ROS Obtained: Yes Systems reviewed as appropriate & no additional complaints except as documented Physical Exam <BRTET Isidro - Last Filed: 02/07/24 21:07> General General appearance: alert and in no apparent distress Respiratory Respiratory exam: Present normal lung sounds bilaterally Cardiovascular Cardiovascular exam: Present regular rate Neurological Exam Neurological exam: Present alert and oriented X3 Medical Decision Making <BRETT Isidro - Last Filed: 02/07/24 21:07> Medical Records Medical records reviewed: Yes I reviewed the patient's medical records. Screening: Per USPSTF and CDC recommendations, given the prevalence of disease in our region, it is our hospital?s policy to screen for HIV and viral Hepatitis for all patients aged 18 and over and those with ongoing risk factors. Kumar Inquiry Pt receiving controlled substance: No Vital Signs: 02/06/24 21:18 02/07/24 01:17 Temperature 98.2 F 98.2 F Temperature Source Oral Oral Pulse Rate 65 Pulse Rate [Right] 88 Respiratory Rate 20 20 Blood Pressure 98/70 L Blood Pressure [Right Arm] 104/68 L Blood Pressure Mean [Right Arm] 80 Blood Pressure Source Automatic Cuff Blood Pressure Source [Right Arm] Automatic Cuff 02 Sat by Pulse Oximetry 97 Oxygen Delivery Method Room Air Room Air Lab Data Lab results reviewed: Yes I reviewed the patient's lab results. Lab Results 02/06/24 21:26: Urine Color Yellow, Urine Appearance Clear, Urine pH 7.5, Ur Specific [place] 1.015, Urine Protein Negative, Urine Glucose (UA) Negative, Urine Ketones Negative, Urine Blood Negative, Urine Nitrate Negative, Urine Bilirubin Negative, Urine Urobilinogen 0.2, Ur Leukocyte Esterase Negative, Urine RBC 3-5, Urine WBC 3-5, Ur Squamous Epith Cells 20-50, Amorphous Sediment 1+, Urine Bacteria 2+ 02/06/24 21:30: WBC 13.3 H, RBC 5.36, Hgb 15.0, Hct 44.5, MCV 83.0, MCH 28.1, MCHC 33.8, RDW 14.0, Plt Count 358, MPV 7.7, Neut % (Auto) 54.5, Lymph % (Auto) 34.8, [place] % (Auto) 5.8, Eos % (Auto) 3.2, Baso % (Auto) 1.7, Neut # (Auto) 7.3, Lymph # (Auto) 4.6 H, [place] # (Auto) 0.8, Eos # (Auto) 0.4, Baso # (Auto) 0.2, Sodium 141, Potassium 3.8, Chloride 108 H, Carbon Dioxide 28, Anion Gap 8.8, BUN 11, Creatinine 0.80, Estimated Creat Clear 106, Estimated GFR 85, Est GFR ( Amer) 103, Glucose 78, Calcium 9.5, Total Bilirubin 0.4, AST 31, ALT 25, Alkaline Phosphatase 80, Total Protein 7.8, Albumin 4.4, Globulin 3.4 H, Albumin/Globulin Ratio 1.3, Serum HCG, Qual Negative, HIV 1&2 Antibody Rapid Nonreactive 02/06/24 21:30 02/06/24 21:30 Orders (Tests/Meds): ED MEDICATIONS Discontinued Medications Generic Name Dose Route Start Last Admin Trade Name Freq PRN Reason Stop Dose Admin Acetaminophen 1,000 mg 02/06/24 21:41 02/06/24 21:53 Acetaminophen 1,000mg/100ml Vial IV 02/06/24 21:42 1,000 mg ONCE ONE Administration Lactated Ringer's 1,000 mls @ 999 mls/hr 02/06/24 21:41 02/06/24 21:51 Lactated Ringer's 1000 Ml Bag IV 02/06/24 22:41 999 mls/hr .Q1H1M ONE Administration Iopamidol 75 ml 02/07/24 00:55 02/07/24 00:55 Iopamidol-370 (76%);100ml Bottle IV 02/07/24 00:56 75 ml ONCE ONE Administration Ketorolac Tromethamine 15 mg 02/06/24 21:41 02/06/24 23:03 Ketorolac 30mg/Ml Vial IV 02/06/24 21:42 15 mg ONCE ONE Administration Sodium Chloride 10 ml 02/07/24 00:55 02/07/24 00:55 Sodium Chloride 0.9% 10ml Syr (Rad Only) IV 03/08/24 00:54 10 ml NEEDED PRN Administration Maintain IV Site ORDERS Category Date Time Status CT abdomen pelvis w con Stat Cat Scan 02/06/24 21:42 Taken CBC w/Auto Diff [Complete Blood Count Auto Diff] Stat Lab 02/06/24 21:30 Completed CMP [Comprehensive Metabolic Panel] Stat Lab 02/06/24 21:30 Completed HCG Qualitative, Serum Stat Lab 02/06/24 21:30 Completed HIV (1&2) Antibody Rapid Stat Lab 02/06/24 21:30 Completed Hep C Ab with Reflex to RNA Stat Lab 02/06/24 21:30 Received UA [Urinalysis and Microscopic] Stat Lab 02/06/24 21:26 Completed Urine Culture Stat Micro 02/06/24 21:26 Received Medical Decision Narrative: In summary patient is a 29-year-old female who presents to the emergency department for evaluation of right lower quadrant abdominal pain. Patient is hemodynamically stable upon arrival, afebrile. Exam is remarkable for tenderness to palpation of the right lower quadrant without rebound or guarding or rigidity. Bowel sounds normal active.. Differential diagnosis includes constipation versus kidney stone versus reproductive cause etc. Initial workup will be conducted with hematologic labs urinalysis urine CT scan of the abdomen pelvis. Initial interventions include crystalloid bolus Toradol Tylenol. Initial [facility] Krunal ALVAREZ: I assumed care of the patient at the time of handoff from the prior provider. On reassessment patient reports symptomatic improvement. Laboratory results independently interpreted by me and show minimal leukocytosis, urine appears contaminated but is nitrate negative and patient has no focal urinary symptoms. CT imaging was interpreted by me and by radiology and shows no evidence of acute pathology within the abdomen. Does show fatty liver which I communicated with patient. Interactive discussion was had with patient regarding her workup. Given patient is currently asymptomatic and has a negative workup, I think she is appropriate for discharge. She was discharged in stable condition with return precautions. I was consulted by the ANASTASIYA, and we discussed the complexity of the problems being addressed. I approved the treatment and management plan for this patient?s care in the Emergency Department, thus performing a substantive portion of the medical decision making. Eber Hector MD <Eber Hector MD - Last Filed: 02/07/24 01:02> Vital Signs: 02/06/24 21:18 02/07/24 01:17 Temperature 98.2 F 98.2 F Temperature Source Oral Oral Pulse Rate 65 Pulse Rate [Right] 88 Respiratory Rate 20 20 Blood Pressure 98/70 L Blood Pressure [Right Arm] 104/68 L Blood Pressure Mean [Right Arm] 80 Blood Pressure Source Automatic Cuff Blood Pressure Source [Right Arm] Automatic Cuff 02 Sat by Pulse Oximetry 97 Oxygen Delivery Method Room Air Room Air Lab Data Lab Results 02/06/24 21:26: Urine Color Yellow, Urine Appearance Clear, Urine pH 7.5, Ur Specific [place] 1.015, Urine Protein Negative, Urine Glucose (UA) Negative, Urine Ketones Negative, Urine Blood Negative, Urine Nitrate Negative, Urine Bilirubin Negative, Urine Urobilinogen 0.2, Ur Leukocyte Esterase Negative, Urine RBC 3-5, Urine WBC 3-5, Ur Squamous Epith Cells 20-50, Amorphous Sediment 1+, Urine Bacteria 2+ 02/06/24 21:30: WBC 13.3 H, RBC 5.36, Hgb 15.0, Hct 44.5, MCV 83.0, MCH 28.1, MCHC 33.8, RDW 14.0, Plt Count 358, MPV 7.7, Neut % (Auto) 54.5, Lymph % (Auto) 34.8, [place] % (Auto) 5.8, Eos % (Auto) 3.2, Baso % (Auto) 1.7, Neut # (Auto) 7.3, Lymph # (Auto) 4.6 H, [place] # (Auto) 0.8, Eos # (Auto) 0.4, Baso # (Auto) 0.2, Sodium 141, Potassium 3.8, Chloride 108 H, Carbon Dioxide 28, Anion Gap 8.8, BUN 11, Creatinine 0.80, Estimated Creat Clear 106, Estimated GFR 85, Est GFR ( Amer) 103, Glucose 78, Calcium 9.5, Total Bilirubin 0.4, AST 31, ALT 25, Alkaline Phosphatase 80, Total Protein 7.8, Albumin 4.4, Globulin 3.4 H, Albumin/Globulin Ratio 1.3, Serum HCG, Qual Negative, HIV 1&2 Antibody Rapid Nonreactive Orders (Tests/Meds): ED MEDICATIONS Discontinued Medications Generic Name Dose Route Start Last Admin Trade Name Freq PRN Reason Stop Dose Admin Acetaminophen 1,000 mg 02/06/24 21:41 02/06/24 21:53 Acetaminophen 1,000mg/100ml Vial IV 02/06/24 21:42 1,000 mg ONCE ONE Administration Lactated Ringer's 1,000 mls @ 999 mls/hr 02/06/24 21:41 02/06/24 21:51 Lactated Ringer's 1000 Ml Bag IV 02/06/24 22:41 999 mls/hr .Q1H1M ONE Administration Iopamidol 75 ml 02/07/24 00:55 02/07/24 00:55 Iopamidol-370 (76%);100ml Bottle IV 02/07/24 00:56 75 ml ONCE ONE Administration Ketorolac Tromethamine 15 mg 02/06/24 21:41 02/06/24 23:03 Ketorolac 30mg/Ml Vial IV 02/06/24 21:42 15 mg ONCE ONE Administration Sodium Chloride 10 ml 02/07/24 00:55 02/07/24 00:55 Sodium Chloride 0.9% 10ml Syr (Rad Only) IV 03/08/24 00:54 10 ml NEEDED PRN Administration Maintain IV Site ORDERS Category Date Time Status CT abdomen pelvis w con Stat Cat Scan 02/06/24 21:42 Taken CBC w/Auto Diff [Complete Blood Count Auto Diff] Stat Lab 02/06/24 21:30 Completed CMP [Comprehensive Metabolic Panel] Stat Lab 02/06/24 21:30 Completed HCG Qualitative, Serum Stat Lab 02/06/24 21:30 Completed HIV (1&2) Antibody Rapid Stat Lab 02/06/24 21:30 Completed Hep C Ab with Reflex to RNA Stat Lab 02/06/24 21:30 Received UA [Urinalysis and Microscopic] Stat Lab 02/06/24 21:26 Completed Urine Culture Stat Micro 02/06/24 21:26 Received Medical Decision Narrative: In summary patient is a 29-year-old female who presents to the emergency department for evaluation of right lower quadrant abdominal pain. Patient is hemodynamically stable upon arrival, afebrile. Exam is remarkable for tenderness to palpation of the right lower quadrant without rebound or guarding or rigidity. Bowel sounds normal active.. Differential diagnosis includes constipation versus kidney stone versus reproductive cause etc. Initial workup will be conducted with hematologic labs urinalysis urine CT scan of the abdomen pelvis. Initial interventions include crystalloid bolus Toradol Tylenol. Krunal ALVAREZ: I assumed care of the patient at the time of handoff from the prior provider. On reassessment patient reports symptomatic improvement. Laboratory results independently interpreted by me and show minimal leukocytosis, urine appears contaminated but is nitrate negative and patient has no focal urinary symptoms. CT imaging was interpreted by me and by radiology and shows no evidence of acute pathology within the abdomen. Does show fatty liver which I communicated with patient. Interactive discussion was had with patient regarding her workup. Given patient is currently asymptomatic and has a negative workup, I think she is appropriate for discharge. She was discharged in stable condition with return precautions. I was consulted by the ANASTASIYA, and we discussed the complexity of the problems being addressed. I approved the treatment and management plan for this patient?s care in the Emergency Department, thus performing a substantive portion of the medical decision making. Eber Hector MD Critical Care <Eber Hector MD - Last Filed: 02/07/24 01:02> Critical Care Time Critical Care Time: No
--- NOTE | 2024-02-06 21:42 | CT_ITS ---
PROCEDURE INFORMATION: Exam: CT Abdomen And Pelvis With Contrast Exam date and time: 02/06/2024 11:18 PM Age: 29 years old Clinical indication: Abdominal pain; Additional info: Right lower quadrant abdominal pain TECHNIQUE: Imaging protocol: Computed tomography of the abdomen and pelvis with contrast. Radiation optimization: All CT scans at this facility use at least one of these dose optimization techniques: automated exposure control; mA and/or kV adjustment per patient size (includes targeted exams where dose is matched to clinical indication); or iterative reconstruction. Contrast material: ISOVUE; Contrast volume: 75 ml; Contrast route: IV; COMPARISON: CT ABDOMEN PELVIS W CON 05/26/2023 10:24 PM FINDINGS: Liver: Fatty infiltration. No mass. Gallbladder and biliary ducts: Normal. No calcified stones. No ductal dilation. Pancreas: Normal. No ductal dilation. Spleen: Normal. No splenomegaly. Adrenal glands: Normal. No mass. Kidneys and ureters: Normal. No hydronephrosis. Stomach and bowel: Unremarkable. No obstruction. No mucosal thickening. Appendix: Not visualized. Intraperitoneal space: Unremarkable. No free air. No significant fluid collection. Vasculature: Unremarkable. No abdominal aortic aneurysm. Lymph nodes: Unremarkable. No enlarged lymph nodes. Urinary bladder: Unremarkable as visualized. Reproductive: Unremarkable as visualized. Bones/joints: Unremarkable. No acute fracture. Soft tissues: Unremarkable. IMPRESSION: 1. No acute findings identified. 2. Fatty liver infiltration.
[2024-02-06] MEDS: LACTATED RINGERS 1000ML 1,000 ML 999 ML IV (21:51)
[2024-02-06] MEDS: ACETAMINOPHEN 1,000MG/100ML VIAL 1000 MG IV (21:53)
[2024-02-06 22:01] LABS: Microscopic, Urine URINE MICROSCOPIC (MICROSCOPIC)
[2024-02-06 22:03] LABS: Albumin Level 4.4 g/dl (3.5-5.0); Chloride 108 mmol/L (98-107); Potassium 3.8 mmoL/L (3.5-5.1); Sodium 141 mmol/L (136-145)
[2024-02-06 22:04] LABS: Basophils # 0.2 K/mm3 (0-0.2); Basophils % 1.7 % (0.1-2.0); Eosinophils # 0.4 K/mm3 (0.0-0.4); Eosinophils % 3.2 % (0.1-12.0); Hematocrit 44.5 % (37.0-47.0); Lymphocytes # 4.6 K/mm3 (0.7-4.5); Lymphocytes % 34.8 % (10-50); Mean Corpuscular HGB Conc 33.8 g/dL (31.8-35.4); Mean Corpuscular Hemoglobin 28.1 pg (27.0-31.2); Mean Platelet Volume 7.7 fl (7.4-10.4); Monocytes # 0.8 K/mm3 (0.1-1.0); Monocytes % 5.8 % (1.7-9.3); Neutrophils # 7.3 K/mm3 (1.8-7.8); Neutrophils % 54.5 % (37.0-80.0); Platelet Count 358 K/mm3 (142-424); Red Blood Count 5.36 M/mm3 (4.20-5.40); White Blood Count 13.3 K/mm3 (4.8-10.8)
[2024-02-06 22:05] LABS: Blood Urea Nitrogen 11 mg/dl (7-17); Creatinine Clearance Estimated 106 mL/min (50-200); Estimated Glomerular Filt Rate 85 ml/min (>60); GFR (African American) 103 ML/MIN (>60)
[2024-02-06 22:06] LABS: Alanine Aminotransferase 25 U/L (12-78); Albumin/Globulin Ratio 1.3 (1.1-1.8); Alkaline Phosphatase 80 U/L (38-126); Anion Gap 8.8 mEq/L (5-15); Aspartate Amino Transferase 31 U/L (14-36); Bilirubin,Total 0.4 mg/dl (0.2-1.3); Calcium 9.5 mg/dl (8.4-10.2); Carbon Dioxide 28 mmol/L (22.0-30.0); Globulin 3.4 g/dL (1.3-3.2); Glucose 78 mg/dl (74-100); Total Protein,Serum 7.8 g/dl (6.3-8.2)
[2024-02-06 22:06] LABS: Appearance,Urine CLEAR (Clear); Bilirubin,Urine Negative (Negative); Blood, Urine Negative (Negative); Color,Urine YELLOW (Yellow); Glucose,Urine (UA) Negative (Negative); Ketones,Urine Negative (Negative); Leukocyte Esterase,Urine Negative (Negative); Nitrate,Urine Negative (Negative); PH,Urine 7.5 (5.0-8.5); Protein,Urine Negative (Negative); Specific Gravity, Urine 1.015 (1.005-1.030); Urobilinogen,Urine 0.2 EU/dl (0.2)
[2024-02-06] MEDS: KETOROLAC 30MG/ML VIAL 15 MG IV (23:03)
[2024-02-07 00:37] LABS: HIV (1&2) Antibody Rapid NONREACTIVE (NONREACTIVE)
[2024-02-07 00:40] LABS: HCG Qualitative, Serum Negative (Negative)
[2024-02-07 00:41] LABS: Bacteria,Urine 2+ /lpf; Squamous Epithelial Cell,Urine 20-50 #/hpf (0-5)
[2024-02-07 00:42] LABS: Amorphous Sediment,Urine 1+ /lpf
[2024-02-07] MEDS: SODIUM CHLORIDE 0.9% 10ML SYR (RAD ONLY) 10 ML IV (00:55)
[2024-02-07] MEDS: IOPAMIDOL-370 (76%);100ML BOTTLE 75 ML IV (00:55)
[2024-02-07 01:17] VITALS: BP 98/70; PULSE 65; RESP 20; TEMP 36.8; O2SAT 97
--- NOTE | 2024-02-07 01:27 | PC.NURSE ---
02/06/24: 2303. results negative. Pt. medicated with Toradol for abdominal pain.
[2024-02-08 05:13] LABS: HCV Ab Non Reactive (Non Reactive)
== END 2024-02-07 01:15 | disposition home or self-care (01) ==
PROVIDERS: Physician Assistant; Emergency Provider Emergency Medicine
DX: R10.31 Right lower quadrant pain (principal); R11.0 Nausea; B96.89 Other specified bacterial agents as the cause of diseases classified elsewhere; K76.0 Fatty (change of) liver, not elsewhere classified
CPT/HCPCS: 74177; 80053; 81001; 84703; 85025; 86803; 87086; 87389; 96361; 96374; 96375; 99284; J0131; J1885; J7120; Q9967

== ENCOUNTER 2024-04-07 16:48 | Emergency (ER) | payer MEDICAID, SELFPAY ==
[2024-04-07 17:56] VITALS: BP 111/53; PULSE 91; RESP 18; TEMP 36.7; O2SAT 98; BMI 52.0
[2024-04-07 18:26] LABS: UTC Strep Screen (Rapid) Negative (Negative)
--- NOTE | 2024-04-07 18:39 | ED_ITS ---
Discharge Plan Disposition Patient Disposition: Home, Self-Care Condition: Good Prescriptions Prescriptions: New amoxicillin 500 mg capsule 500 mg PO BID 10 Days Qty: 20 0RF No Action atorvastatin 20 mg tablet 20 mg PO HS escitalopram oxalate 20 mg tablet 20 mg PO DAILY cyclobenzaprine 5 mg tablet 5 mg PO TID PRN (Reason: muscle spasm) Qty: 12 0RF Referrals Follow up/Referrals: Giorgi Loyola MD [Primary Care Provider] - See instructions Activity Restrictions/Add. Instructions Additional Instructions/Restrictions: *Monitor Temp, Over the counter Motrin or Tylenol as directed/as needed Tylenol every 4 hours and Motrin every 6 hours (as long as your family doctor has told you that you can take it) for fever or pain. and straight to ER if unable to lower temp less than 101.0 after medication given *Warm salt water gargles may help to soothe the throat *Throat Lozenges? *Warm fluids like tea with honey may help to soothe the throat? *Sleep elevated *Humidifier/Vaporizer Your throat swab was sent for culture. Those results are typically sent to your primary care. Be sure to follow up in 2-3 days with your family doctor/primary care physician if no improvement so they can review those result and treat if necessary. If you don?t have a primary care doctor, I recommend you get one but in the mean time, you will have to return to a walk in clinic Follow up IMMEDIATELY for new or worsening symptoms or no Noticeable improvement over the next 48-72 hours. 911 for difficulty breathing or swallowing Clinical Impressions Clinical Impression: Pharyngitis Instructions Patient Instructions: Sore Throat Print Language Print Language: Danish Discharge ED Provider: Kelle Barrow [facility] General Stated complaint: sore throat Mode of Arrival: Ambulatory Source of Information: Patient Time Seen by Provider: 04/07/24 18:39 Description of Symptoms (Recalled from Triage Doc. by RN): SORE THROAT, THINKS THERE MIGHT BE BLISTERS IN HER THROAT HEENT Symptoms (Recalled from RN notes): Yes Resp Symptoms (Recalled from RN notes): No Skin Symptoms (Recalled from RN notes): No MS Symptoms (Recalled from RN notes): No Functional Status (Recalled from RN notes): WNL History of Present Illness Provider Complaint: Patient states that she has been having sore throat, pain when she swallows and has blisters on the back of her throat feels like she may have strep throat Related Data Home Medications ?Medication ?Instructions ?Recorded ?Confirmed atorvastatin 20 mg tablet 20 mg PO HS 09/06/23 04/07/24 escitalopram oxalate 20 mg tablet 20 mg PO DAILY 09/06/23 04/07/24 Previous Rx's ?Medication ?Instructions ?Recorded cyclobenzaprine 5 mg tablet 5 mg PO TID PRN muscle spasm #12 09/06/23 tabs amoxicillin 500 mg capsule 500 mg PO BID 10 days #20 caps 04/07/24 Allergies Allergy/AdvReac Type Severity Reaction Status Date / Time No Known Allergies Allergy Verified 07/19/23 16:49 Worker's Comp Is this a Worker's Comp case?: No [facility] Disclaimer: The information contained in this section may have been updated after the patient was seen, as this information can be updated by other users. Medical History (Updated 04/07/24 @ 18:44 by Kelle Barrow APRN) Depression Anxiety Hyperlipidemia delivery delivered GERD (gastroesophageal reflux disease) Surgical History (Updated 09/06/23 @ 13:35 by Cristina Benítez RN) History of cholecystectomy Social History Smoking Status: Current every day smoker tobacco type: cigarettes packs per day: 1 alcohol intake: never substance use type: denies use current occupational status: unemployed and disabled Travel in the last 8 weeks: None ROS Obtained: Yes All systems reviewed & no additional complaints except as documented and Yes Systems reviewed as appropriate & no additional complaints except as documented Constitutional Constitutional: Reports system reviewed and no additional complaints, except as documented and Reports as per HPI ENT Ears, Nose, Mouth, and Throat: Reports system reviewed and no additional complaints, except as documented, Reports as per HPI and Reports sore throat Cardiovascular Cardiovascular: Reports system reviewed and no additional complaints, except as documented and Reports as per HPI Respiratory Respiratory: Reports system reviewed and no additional complaints, except as documented and Reports as per HPI Gastrointestinal Gastrointestingal: Reports system reviewed and no additional complaints, except as documented and as per HPI Physical Exam General General appearance: alert and in no apparent distress ENT ENT exam: Present mucous membranes moist Expanded ENT Exam Throat exam: Present tonsillar erythema (patchy like areas noted) Respiratory Respiratory exam: Present normal lung sounds bilaterally; Absent respiratory distress or wheezes Cardiovascular Cardiovascular exam: Present regular rate, normal rhythm and normal heart sounds Abdominal Exam Abdominal exam: Present soft and normal bowel sounds; Absent distention or tenderness Neurological Exam Neurological exam: Present alert, oriented X3 and normal gait Medical Decision Making Medical Records Screening: Per USPSTF and CDC recommendations, given the prevalence of disease in our region, it is our hospital?s policy to screen for HIV and viral Hepatitis for all patients aged 18 and over and those with ongoing risk factors. Kumar Inquiry Pt receiving controlled substance: No Kumar was queried for this patient: No Vital Signs: 04/07/24 17:56 Temperature 98.1 F Temperature Source Oral Pulse Rate [Left Radial] 91 H Respiratory Rate 18 Blood Pressure [Left Arm] 111/53 L Blood Pressure Mean [Left Arm] 72 02 Sat by Pulse Oximetry 98 Lab Data Lab results reviewed: Yes I reviewed the patient's lab results. Lab Results 04/07/24 17:58: Strep Scn Rapid Clinic Negative Orders (Tests/Meds): ORDERS Category Date Time Status Strep Screen Confirmation Stat Micro 04/07/24 17:58 Received
[2024-04-07 18:49] VITALS: BP 111/53; PULSE 91; RESP 18; TEMP 36.7
== END 2024-04-07 18:50 | disposition home or self-care (01) ==
PROVIDERS: Emergency Provider Nurse Practitioner; PCP Family Medicine
DX: J02.9 Acute pharyngitis, unspecified (principal)
CPT/HCPCS: 87880; 99213; G0381

== ENCOUNTER 2024-08-28 18:23 | Emergency (ER) | payer MEDICAID, SELFPAY ==
--- NOTE | 2024-08-28 18:26 | HMH.EDGENADL ---
Discharge Plan Disposition Patient Disposition: Home, Self-Care Condition: Good Prescriptions Prescriptions: New cephalexin 500 mg capsule 500 mg PO BID 10 Days Qty: 20 0RF No Action atorvastatin 20 mg tablet 20 mg PO HS escitalopram oxalate 20 mg tablet 20 mg PO DAILY cetirizine [Zyrtec] 10 mg Tablet 10 mg PO DAILY famotidine [Pepcid] 20 mg Tablet 20 mg PO DAILY bupropion HCl 300 mg tablet extended release 24 hr 300 mg PO DAILY Referrals Follow up/Referrals: Provider,Referral, MD [Primary Care Provider] - See instructions Activity Restrictions/Add. Instructions Additional Instructions/Restrictions: Please keep your wound clean dry and covered with a nonocclusive dressing. You may wash with soap and water. Your sutures need to come out in 14 days. If you have any increasing redness fever pain drainage return to the emergency department. I have sent in a prescription to your pharmacy. Please take until your antibiotics are gone. Clinical Impressions Clinical Impression: Laceration Instructions Patient Instructions: DI for Laceration Repair Print Language Print Language: Taiwanese Discharge ED Provider: Paco Still General Adult HPI <BRETT Isidro - Last Filed: 08/28/24 21:25> General Chief complaint: Wound/Laceration Stated complaint: Laceration Time Seen by Provider: 08/28/24 18:26 History of Present Illness HPI narrative: Patient presents for evaluation of a right lower extremity laceration. Patient states that she was walking through her yard when she tripped and fell. She felt a sharp pain of her right mid to distal anterior dow when she fell and when she got up she noticed a very large laceration. She is not sure what cut her but believes it was a rock. She suffered no other injury. She did not strike her head had no loss of consciousness has no chest pain shortness of breath fever chills hemoptysis hematochezia melena nausea vomit diarrhea. Patient has no loss of motor or sensory in her right lower extremity. Related Data Home Medications ?Medication ?Instructions ?Recorded ?Confirmed atorvastatin 20 mg tablet 20 mg PO HS 09/06/23 08/28/24 escitalopram oxalate 20 mg tablet 20 mg PO DAILY 09/06/23 08/28/24 bupropion HCl 300 mg 24 hr tablet, 300 mg PO DAILY 08/28/24 08/28/24 extended release cetirizine 10 mg tablet (Zyrtec) 10 mg PO DAILY 08/28/24 08/28/24 famotidine 20 mg tablet (Pepcid) 20 mg PO DAILY 08/28/24 08/28/24 Previous Rx's ?Medication ?Instructions ?Recorded cephalexin 500 mg capsule 500 mg PO BID 10 days #20 caps 08/28/24 Allergies Allergy/AdvReac Type Severity Reaction Status Date / Time No Known Allergies Allergy Verified 07/12/24 16:30 PFS <BRETT Isidro - Last Filed: 08/28/24 21:25> [facility] Disclaimer: The information contained in this section may have been updated after the patient was seen, as this information can be updated by other users. Medical History Depression Anxiety Hyperlipidemia delivery delivered GERD (gastroesophageal reflux disease) Surgical History History of cholecystectomy Social History Smoking Status: Never smoker alcohol intake: never substance use type: denies use current occupational status: unemployed and disabled Travel in the last 8 weeks: None Have you lived/traveled outside [place] in past 30 days?: No Contact w/someone who lives/traveled outside [place] past 30 days?: No Exposure to someone with infectious disease in past 14 days?: No Do you have a fever (greater than 100.4 F or 38 C)?: No Have you tested positive for COVID-19: No Exposed to someone with COVID-19 in past 14 days?: No Do you have a sore throat?: No Do you have a cough?: No Do you have any weakness?: No Do you have any diarrhea?: No Are you experiencing any unusual bleeding?: No Do you have any muscle aches/pain?: No Do you have any abdominal pain?: No Are you experiencing loss of taste or smell?: No Other Medical History Have you received the Flu Vaccine for this season: No Have you received the Pneumonia Vaccine: No <BRETT Isidro - Last Filed: 08/28/24 21:25> ROS Obtained: Yes Systems reviewed as appropriate & no additional complaints except as documented Physical Exam <BRETT Isidro - Last Filed: 08/28/24 21:25> General General appearance: alert and in no apparent distress Respiratory Respiratory exam: Present normal lung sounds bilaterally Cardiovascular Cardiovascular exam: Present regular rate Abdominal Exam Abdominal exam: Absent normal bowel sounds Neurological Exam Neurological exam: Present alert Medical Decision Making <BRETT Isidro - Last Filed: 08/28/24 21:25> Medical Records Medical records reviewed: Yes I reviewed the patient's medical records. Screening: Per USPSTF and CDC recommendations, given the prevalence of disease in our region, it is our hospital?s policy to screen for HIV and viral Hepatitis for all patients aged 18 and over and those with ongoing risk factors. Kumar Inquiry Pt receiving controlled substance: No Vital Signs: 08/28/24 18:27 08/28/24 19:00 08/28/24 19:30 Temperature 97.8 F Temperature Source Oral Pulse Rate 80 90 Pulse Rate [Left Radial] 105 H Respiratory Rate 20 16 16 Blood Pressure 129/98 H 151/90 H Blood Pressure [Right Arm] 157/101 H Blood Pressure Mean 109 110 Blood Pressure Mean [Right Arm] 119 Blood Pressure Source Blood Pressure Position 02 Sat by Pulse Oximetry 99 97 98 Oxygen Delivery Method Room Air 08/28/24 20:38 Temperature 98.6 F Temperature Source Oral Pulse Rate 84 Pulse Rate [Left Radial] Respiratory Rate 20 Blood Pressure 131/95 H Blood Pressure [Right Arm] Blood Pressure Mean Blood Pressure Mean [Right Arm] Blood Pressure Source Automatic Cuff Blood Pressure Position Supine 02 Sat by Pulse Oximetry Oxygen Delivery Method Room Air Orders (Tests/Meds): ED MEDICATIONS Discontinued Medications Generic Name Dose Route Start Last Admin Trade Name Yamila PRN Reason Stop Dose Admin Acetaminophen 1,000 mg 08/28/24 18:27 08/28/24 18:37 Acetaminophen 500mg Tab PO 08/28/24 18:28 1,000 mg ONCE ONE Administration Cephalexin HCl 500 mg 08/28/24 20:35 08/28/24 20:43 Cephalexin 500mg Capsule PO 08/28/24 20:36 500 mg ONCE ONE Administration Ibuprofen 800 mg 08/28/24 18:27 08/28/24 18:37 Ibuprofen 400 Mg Tablet PO 08/28/24 18:28 800 mg ONCE ONE Administration Lidocaine/Epinephrine 20 ml 08/28/24 19:24 08/28/24 19:30 Lidocaine 1% W/Epi 1:100,000 20ml Vial SQ 08/28/24 19:25 20 ml ONCE ONE Administration Oxycodone HCl 5 mg 08/28/24 18:27 08/28/24 18:37 Oxycodone 5mg Immediate Release Tablet PO 08/28/24 18:28 5 mg ONCE ONE Administration Tetanus/Reduced Diphtheria/Acell Pertussis 0.5 ml 08/28/24 18:27 08/28/24 18:40 Tet/Diphth/Pert-Adult 0.5ml Syringe IM 08/28/24 18:28 0.5 ml .ONCE ONE Administration ORDERS Category Date Time Status Tibia/fibula XR right 2 views [XR tibia fibula RT 2V] Exams 08/28/24 18:27 Completed Stat Medical Decision Narrative: In summary patient is a 29-year-old female who presents to the emergency department for evaluation of right lower extremity laceration. Patient is initially hypertensive at 157/101 and tachycardic with heart rate of 105 and sinus tachycardia in the bedside monitor breathing 20 times a minute satting in 99% on room air upon arrival, afebrile at 97.8 . Physical exam is remarkable for a 9 cm complex laceration of the anterior tibia. It appears to be lateral to the tibia itself but does involve the tibialis anterior muscle. There is no palpable bony deformity. Patient has normal flexion and extension is neurovascular intact distally with good pulses. Bleeding is currently controlled.. Differential diagnosis includes complex laceration versus possible open fracture or bony injury. Initial workup will be conducted with plain film x-rays. Initial interventions include Tylenol ibuprofen oxycodone. Initial workup reviewed by me my informal interpretation of her imaging shows no acute bony abnormality prior to radiology read.. Given this wound was closed in 3 layers with 5 interrupted 3.0 Vicryl to approximate the muscle belly 8 interrupted 3.0 Vicryl subcutaneous and nineteen 3.0 nylon to close the skin. Thus patient is appropriate for discharge after receiving Tdap and the first dose of Keflex with prescription for Keflex sent to her pharmacy. Wound care instructions were given to the patient by myself. Patient having her sutures removed in 14 days. If she has any any increased redness drainage pain or swelling to return to the emergency department. Patient verbalized understanding and agreement. <Paco Still MD - Last Filed: 08/28/24 23:20> Vital Signs: 08/28/24 18:27 08/28/24 19:00 08/28/24 19:30 Temperature 97.8 F Temperature Source Oral Pulse Rate 80 90 Pulse Rate [Left Radial] 105 H Respiratory Rate 20 16 16 Blood Pressure 129/98 H 151/90 H Blood Pressure [Right Arm] 157/101 H Blood Pressure Mean 109 110 Blood Pressure Mean [Right Arm] 119 Blood Pressure Source Blood Pressure Position 02 Sat by Pulse Oximetry 99 97 98 Oxygen Delivery Method Room Air 08/28/24 20:38 Temperature 98.6 F Temperature Source Oral Pulse Rate 84 Pulse Rate [Left Radial] Respiratory Rate 20 Blood Pressure 131/95 H Blood Pressure [Right Arm] Blood Pressure Mean Blood Pressure Mean [Right Arm] Blood Pressure Source Automatic Cuff Blood Pressure Position Supine 02 Sat by Pulse Oximetry Oxygen Delivery Method Room Air Orders (Tests/Meds): ED MEDICATIONS Discontinued Medications Generic Name Dose Route Start Last Admin Trade Name Freq PRN Reason Stop Dose Admin Acetaminophen 1,000 mg 08/28/24 18:27 08/28/24 18:37 Acetaminophen 500mg Tab PO 08/28/24 18:28 1,000 mg ONCE ONE Administration Cephalexin HCl 500 mg 08/28/24 20:35 08/28/24 20:43 Cephalexin 500mg Capsule PO 08/28/24 20:36 500 mg ONCE ONE Administration Ibuprofen 800 mg 08/28/24 18:27 08/28/24 18:37 Ibuprofen 400 Mg Tablet PO 08/28/24 18:28 800 mg ONCE ONE Administration Lidocaine/Epinephrine 20 ml 08/28/24 19:24 08/28/24 19:30 Lidocaine 1% W/Epi 1:100,000 20ml Vial SQ 08/28/24 19:25 20 ml ONCE ONE Administration Oxycodone HCl 5 mg 08/28/24 18:27 08/28/24 18:37 Oxycodone 5mg Immediate Release Tablet PO 08/28/24 18:28 5 mg ONCE ONE Administration Tetanus/Reduced Diphtheria/Acell Pertussis 0.5 ml 08/28/24 18:27 08/28/24 18:40 Tet/Diphth/Pert-Adult 0.5ml Syringe IM 08/28/24 18:28 0.5 ml .ONCE ONE Administration ORDERS Category Date Time Status Tibia/fibula XR right 2 views [XR tibia fibula RT 2V] Exams 08/28/24 18:27 Completed Stat Medical Decision Narrative: In summary patient is a 29-year-old female who presents to the emergency department for evaluation of right lower extremity laceration. Patient is initially hypertensive at 157/101 and tachycardic with heart rate of 105 and sinus tachycardia in the bedside monitor breathing 20 times a minute satting in 99% on room air upon arrival, afebrile at 97.8 . Physical exam is remarkable for a 9 cm complex laceration of the anterior tibia. It appears to be lateral to the tibia itself but does involve the tibialis anterior muscle. There is no palpable bony deformity. Patient has normal flexion and extension is neurovascular intact distally with good pulses. Bleeding is currently controlled.. Differential diagnosis includes complex laceration versus possible open fracture or bony injury. Initial workup will be conducted with plain film x-rays. Initial interventions include Tylenol ibuprofen oxycodone. Initial workup reviewed by me my informal interpretation of her imaging shows no acute bony abnormality prior to radiology read.. Given this wound was closed in 3 layers with 5 interrupted 3.0 Vicryl to approximate the muscle belly 8 interrupted 3.0 Vicryl subcutaneous and nineteen 3.0 nylon to close the skin. Thus patient is appropriate for discharge after receiving Tdap and the first dose of Keflex with prescription for Keflex sent to her pharmacy. Wound care instructions were given to the patient by myself. Patient having her sutures removed in 14 days. If she has any any increased redness drainage pain or swelling to return to the emergency department. Patient verbalized understanding and agreement. I was consulted by the ANASTASIYA, and we discussed the complexity of the problems being addressed. I approved the treatment and management plan for this patient's care in the Emergency Department, thus performing a substantive portion of the medical decision making. Paco Still MD Procedures <BRETT Isidro - Last Filed: 08/28/24 21:25> Laceration Laceration 1: Site: lower extremity Side (If applicable): right Size (cm): 9 Description: linear Depth: involves subcutaneous layer and involves muscle layer Local Anesthetic: lidocaine 1% and with epi Amount of anesthesia used (mL): 20 Pre-repair: wound explored and irrigated extensively Skin layer closed with: nylon Size (cm): 3-0 Number of sutures: 19 Technique: simple, interrupted Subcutaneous layer closed with: vicryl Size: 3-0 Number of sutures: 10 Muscle layer closed with: vicryl Size: 3-0 Number of sutures: 5 Technique: simple, interrupted Critical Care <BRETT Isidro - Last Filed: 08/28/24 21:25> Critical Care Time Critical Care Time: No
[2024-08-28 18:27] VITALS: BP 157/101; PULSE 105; RESP 20; TEMP 36.6; O2SAT 99; BMI 53.1
--- NOTE | 2024-08-28 18:27 | XR_ITS ---
PROCEDURE INFORMATION: Exam: XR Right Tibia and Fibula Exam date and time: 08/28/2024 7:11 PM Age: 29 years old Clinical indication: Injury or trauma; Fall; Laceration; Lower leg; Right; Without foreign body; Additional info: Anterior laceration TECHNIQUE: Imaging protocol: Radiologic exam of the right tibia and fibula. Views: 2 views. Total images: 2 COMPARISON: CR XR ANKLE RT MIN 3V 01/15/2023 6:49 PM FINDINGS: Bones/joints: No acute fracture or joint dislocation. No concerning bone lesions or calcifications. Corticated ossicle contiguous with the tip the lateral malleolus compatible with remote injury or accessory development. Unremarkable joint spaces. Soft tissues: Laceration anterior to the mid tibia. No radiopaque foreign body. IMPRESSION: 1. Soft tissue laceration anterior to the mid tibia. No radiopaque foreign body. 2. No acute osseous abnormality.
[2024-08-28] MEDS: ACETAMINOPHEN 500MG TAB 1000 MG PO (18:37)
[2024-08-28] MEDS: OXYCODONE 5MG IMMEDIATE RELEASE TABLET 5 MG PO (18:37)
[2024-08-28] MEDS: IBUPROFEN 400 MG TABLET 800 MG PO (18:37)
[2024-08-28] MEDS: TET/DIPHTH/PERT-ADULT 0.5ML SYRINGE 0.5 ML IM (18:40)
[2024-08-28 19:00] VITALS: BP 129/98; PULSE 80; RESP 16; O2SAT 97
[2024-08-28 19:30] VITALS: BP 151/90; PULSE 90; RESP 16; O2SAT 98
[2024-08-28] MEDS: LIDOCAINE 1% W/EPI 1:100,000 20ML VIAL 20 ML SQ (19:30)
[2024-08-28 20:38] VITALS: BP 131/95; PULSE 84; RESP 20; TEMP 37; O2SAT 98
[2024-08-28] MEDS: cephALEXin 500MG CAPSULE 500 MG PO (20:43)
--- OUTSIDE RECORDS SUMMARY | 2024-08-28 23:39 | XMS_ITS | Data Portability ---
Author Organization [facility] CLINT Dinero ADMIN Address [address] [place] [id number] Care Team Providers Care Forensic Investigator Name Role Phone GIORGI LOYOLA Primary Care Provider [phone] Assessment No assessment recorded. Plan of Treatment Reminders Order Date Submit Date Provider Last Modified By Organization Details Last Modified Time Details Appointments None recorded. Lab influenza virus A + B + SARS-CoV-2 (COVID19) Ag panel, rapid IA, upper respiratory specimen 2023 024 [facility] [place], [address], [place], [address], 4 14:35:19 rsv (respirator y syncytial virus), rapid, nasopharyng eal 2023 024 [facility] [place], [address], [place], [address], 4 14:35:19 rapid strep group A, throat 2023 024 [facility] [place], [address], [place], [address], 4 14:35:19 lipid panel, serum 2023 024 [email or web address] [facility], [address], [address], [place], [address], 5 09:22:23 lipid panel, serum 2023 024 JOSE D [facility], [address], [address], [place], [address], 4 05:36:46 CMP, serum or plasma 2023 024 JOSE D [facility], [address], [address], [place], [address], 4 05:36:46 lipid panel, serum 2023 024 JOSE D [facility], [address], [address], [place], [address], 4 11:11:30 CMP, serum or plasma 2023 024 JOSE D [facility], [address], [address], [place], [address], 4 11:11:29 CBC w/ auto diff 2023 024 JOSE D [facility], [address], [address], [place], [address], 4 11:11:27 TSH + free T4, serum 2023 024 JOSE D [facility], [address], [address], [place], [address], 4 11:11:26 magnesium, serum or plasma 2023 024 JOSE D [facility], [address], [address], [place], [address], 4 11:11:33 vitamin D, 25-hydroxy, total, serum 2023 024 JOSE D [facility], [address], [address], [place], [address], 4 11:11:32 vitamin B12 + folate, serum or blood 2023 024 [place] [facility], [address], [address], [place], [address], 4 11:11:31 HbA1c (hemoglobin A1c), blood 2023 024 [facility] [place], [address], [place], [address], 4 16:43:28 urinalysis, dipstick 2023 024 [facility] [place], [address], [place], [address], 4 16:43:10 Referral bariatric surgery referral - 28 yo with BMI of 51.6 2023 024 [email or web address] [facility], [address], [address], [place], [address], 4 10:27:31 Procedures None recorded. Surgeries None recorded. Imaging None recorded. Medication Orders Bromfed DM 2 mg-30 mg-10 mg/5 mL oral syrup [address] [facility], [address] [place] [address], [address], [address], 4 14:39:07 ibuprofen 800 mg tablet [address] [facility], [address] [place] [address], [facility], [place], [address], 4 14:39:07 guaifenesin ER 1,200 mg tablet, extended release 12 hr [email or web address] [place] [address], [address] [place] [address], [facility], [place], [address], 4 22:10:19 cholecalcif isabelle (vitamin D3) 1,250 mcg (50,000 unit) capsule [address] [facility], [address] [place] [address], [facility], [place], [address], 4 14:39:10 Levsin/SL 0.125 mg sublingual tablet 2023 024 [facility], [address] [place] [address], [facility], [place], [address], 4 16:31:08 omega 3-dha-epa-f maryana oil 1,000 mg (120 mg-180 mg) capsule [address] [facility], [address] [place] [address], [facility], [place], [address], 4 14:26:06 atorvastati n 20 mg tablet 2023 024 [facility], [address] [place] [address], [facility], [place], [address], 4 14:26:10 escitalopra m 20 mg tablet 2023 024 [facility], [address] [place] [address], [facility], [place], [address], 4 14:10:37 bupropion HCl XL 300 mg 24 hr tablet, extended release 2023 024 [facility], [address] [place] [address], [facility], [place], [address], 4 14:10:33 meloxicam 15 mg tablet 2023 024 [facility], [address] [place] [address], [facility], [place], [address], 14:26:33 bupropion HCl XL 150 mg 24 hr tablet, extended release [address] [facility], [address] [place] [address], [facility], [place], [address], 13:55:40 escitalopra m 20 mg tablet [address] [facility], [address] [place] [address], [facility], [place], [address], 14:26:35 Patient TargetsNo targets recorded. Patient Instructions Encounter Date Encounter Id Patient Instructions Last Modified By Organization Details Last Modified Time 10/05/2023 [id number] Learning About Weight-Loss (Bariatric) Surgery Not available 10/05/2023 14:18:07 01/22/2024 [id number] established patient with a chronic problem that is uncontrolled requiring medication change Not available 01/22/2024 22:46:17 02/11/2024 [id number] established patient with new complaint of undetermined prognosis and moderate complexity requiring history, physical, review of recent medical records from ER visits and medication prescription Not available 02/12/2024 07:14:51 Reason for Referral Bariatric Surgery Referral f or Morbid obesity 28 yo with BMI of 51.6 Referring Physician: Giorgi Loyola, Family Medicine, Encounter Date: 10/05/2023 Results Created Date Observation Date Name Description Value Unit Range Abnormal Flag Note LastModifiedBy Organization Detail LastModifiedTime 10/05/1910/06/2023 TSH+F REE T4 TSH 1.510 uIU/m L 0.450- 4.500 Not Available [facility] ([facility]) [address] [facility], [place], [address], 10/06/2023 11:11:26 10/05/1910/06/2023 TSH+F REE T4 T4,free(dire ct) 1.06 NG/dL 0.82-1 .77 Not Available [facility] ([facility]) [address] [facility], [place], [address], 10/06/2023 11:11:26 10/05/19 24 10/06/2023 CBC WITH DIFFE RENTI AL/PL ATELE T WBC 12.3 x10e3 /uL 3.4-10 .8 above high normal Not Available [facility] ([facility]) [address] [place], [address], 10/06/2023 11:11:27 10/05/19 24 10/06/2023 CBC WITH DIFFE RENTI AL/PL ATELE T RBC 5.36 x10e6 /uL 3.77-5 .28 above high normal Not Available [facility] ([facility]) [address] [place], [address], 10/06/2023 11:11:27 10/05/19 24 10/06/2023 CBC WITH DIFFE RENTI AL/PL ATELE T hemoglobin 14.2 g/dL 11.1-1 5.9 Not Available [facility] ([facility]) [address] [place], [address], 10/06/2023 11:11:27 10/05/19 24 10/06/2023 CBC WITH DIFFE RENTI AL/PL ATELE T hematocrit 44.8 % 34.0-4 6.6 Not Available [facility] ([facility]) [address] [place], [address], 10/06/2023 11:11:27 10/05/19 24 10/06/2023 CBC WITH DIFFE RENTI AL/PL ATELE T MCV 84 fL 79-97 Not Available [facility] ([facility]) [address] [place], [address], 10/06/2023 11:11:27 10/05/19 24 10/06/2023 CBC WITH DIFFE RENTI AL/PL ATELE T MCH 26.5 pg 26.6-3 3.0 below low normal Not Available [facility] ([facility]) [address] [place], [address], 10/06/2023 11:11:27 10/05/19 24 10/06/2023 CBC WITH DIFFE RENTI AL/PL ATELE T MCHC 31.7 g/dL 31.5-3 5.7 Not Available [facility] ([facility]) [address] [facility], [place], [address], 10/06/2023 11:11:27 10/05/19 24 10/06/2023 CBC WITH DIFFE RENTI AL/PL ATELE T RDW 13.6 % 11.7-1 5.4 Not Available [facility] ([facility]) [address] [facility], [place], [address], 10/06/2023 11:11:27 10/05/19 24 10/06/2023 CBC WITH DIFFE RENTI AL/PL ATELE T platelets 415 x10e3 /uL 150-45 0 Not Available [facility] ([facility]) [address] [facility], [place], [address], 10/06/2023 11:11:27 10/05/19 24 10/06/2023 CBC WITH DIFFE RENTI AL/PL ATELE T neutrophils 54 % not estab. Not Available [facility] ([facility]) [address] [facility], [place], [address], 10/06/2023 11:11:27 10/05/19 24 10/06/2023 CBC WITH DIFFE RENTI AL/PL ATELE T lymphs 34 % not estab. Not Available [facility] ([facility]) [address] [facility], [place], [address], 10/06/2023 11:11:27 10/05/19 24 10/06/2023 CBC WITH DIFFE RENTI AL/PL ATELE T monocytes 7 % not estab. Not Available [facility] ([facility]) [address] [place], [address], 10/06/2023 11:11:27 10/05/19 24 10/06/2023 CBC WITH DIFFE RENTI AL/PL ATELE T eos 4 % not estab. Not Available [facility] ([facility]) [address] [place], [address], 10/06/2023 11:11:27 10/05/19 24 10/06/2023 CBC WITH DIFFE RENTI AL/PL ATELE T basos 1 % not estab. Not Available [facility] ([facility]) [address] [facility], [place], [address], 10/06/2023 11:11:27 10/05/19 24 10/06/2023 CBC WITH DIFFE RENTI AL/PL ATELE T immature cells ASSISTANT EDUCATION DIRECTOR Not Available [facility] ([facility]) [address] [facility], [place], [address], 10/06/2023 11:11:27 10/05/19 24 10/06/2023 CBC WITH DIFFE RENTI AL/PL ATELE T neutrophils (absolute) 6.6 x10e3 /uL 1.4-7. 0 Not Available [facility] ([facility]) [address] [facility], [place], [address], 10/06/2023 11:11:27 10/05/19 24 10/06/2023 CBC WITH DIFFE RENTI AL/PL ATELE T lymphs (absolute) 4.1 x10e3 /uL 0.7-3. 1 above high normal Not Available [facility] ([facility]) [address] [place], [address], 10/06/2023 11:11:27 10/05/19 24 10/06/2023 CBC WITH DIFFE RENTI AL/PL ATELE T monocytes(ab solute) 0.9 x10e3 /uL 0.1-0. 9 Not Available [facility] ([facility]) [address] [place], [address], 10/06/2023 11:11:27 10/05/19 24 10/06/2023 CBC WITH DIFFE RENTI AL/PL ATELE T eos (absolute) 0.5 x10e3 /uL 0.0-0. 4 above high normal Not Available [facility] ([facility]) [address] [facility], [place], [address], 10/06/2023 11:11:27 10/05/19 24 10/06/2023 CBC WITH DIFFE RENTI AL/PL ATELE T baso (absolute) 0.1 x10e3 /uL 0.0-0. 2 Not Available [facility] ([facility]) [address] [facility], [place], [address], 10/06/2023 11:11:27 10/05/19 24 10/06/2023 CBC WITH DIFFE RENTI AL/PL ATELE T immature granulocytes 0 % not estab. Not Available [facility] ([facility]) [address] [facility], [place], [address], 10/06/2023 11:11:27 10/05/19 24 10/06/2023 CBC WITH DIFFE RENTI AL/PL ATELE T immature grans (abs) 0.0 x10e3 /uL 0.0-0. 1 Not Available [facility] ([facility]) [address] [facility], [place], [address], 10/06/2023 11:11:27 10/05/19 24 10/06/2023 CBC WITH DIFFE RENTI AL/PL ATELE T NRBC ASSISTANT EDUCATION DIRECTOR Not Available [facility] ([facility]) [address] [facility], [place], [address], 10/06/2023 11:11:27 10/05/19 24 10/06/2023 CBC WITH DIFFE RENTI AL/PL ATELE T hematology comments: ASSISTANT EDUCATION DIRECTOR Not Available [facility] ([facility]) [address] [facility], [place], [address], 10/06/2023 11:11:27 10/05/19 24 10/06/2023 COMP. METAB OLIC PANEL (14) glucose 78 mg/dL 70-99 Not Available [facility] ([facility]) [address] [place], [address], 10/06/2023 11:11:28 10/05/19 24 10/06/2023 COMP. METAB OLIC PANEL (14) BUN 12 mg/dL 6-20 Not Available [facility] ([facility]) [address] [place], [address], 10/06/2023 11:11:28 10/05/19 24 10/06/2023 COMP. METAB OLIC PANEL (14) creatinine 0.63 mg/dL 0.57-1 .00 Not Available [facility] ([facility]) [address] [place], [address], 10/06/2023 11:11:28 10/05/19 24 10/06/2023 COMP. METAB OLIC PANEL (14) eGFR 125 mL/mi n/1.7 3 >59 Not Available [facility] ([facility]) [address] [place], [address], 10/06/2023 11:11:28 10/05/19 24 10/06/2023 COMP. METAB OLIC PANEL (14) BUN/creatini ne ratio 19 9-23 Not Available [facility] ([facility]) [address] [place], [address], 10/06/2023 11:11:28 10/05/19 24 10/06/2023 COMP. METAB OLIC PANEL (14) sodium 140 mmol/ L 134-14 4 Not Available [facility] ([facility]) [address] [place], [address], 10/06/2023 11:11:28 10/05/19 24 10/06/2023 COMP. METAB OLIC PANEL (14) potassium 4.4 mmol/ L 3.5-5. 2 Not Available [facility] ([facility]) [address] [place], [address], 10/06/2023 11:11:28 10/05/19 24 10/06/2023 COMP. METAB OLIC PANEL (14) chloride 100 mmol/ L 96-106 Not Available [facility] ([facility]) [address] [place], [address], 10/06/2023 11:11:28 10/05/19 24 10/06/2023 COMP. METAB OLIC PANEL (14) carbon dioxide, total 22 mmol/ L 20-29 Not Available [facility] ([facility]) [address] [place], [address], 10/06/2023 11:11:28 10/05/19 24 10/06/2023 COMP. METAB OLIC PANEL (14) calcium 9.9 mg/dL 8.7-10 .2 Not Available [facility] ([facility]) [address] [place], [address], 10/06/2023 11:11:28 10/05/19 24 10/06/2023 COMP. METAB OLIC PANEL (14) protein, total 7.1 g/dL 6.0-8. 5 Not Available [facility] ([facility]) [address] [facility], [address], 10/06/2023 11:11:28 10/05/19 24 10/06/2023 COMP. METAB OLIC PANEL (14) albumin 4.1 g/dL 4.0-5. 0 Not Available [facility] ([facility]) [address] [place], [address], 10/06/2023 11:11:28 10/05/19 24 10/06/2023 COMP. METAB OLIC PANEL (14) globulin, total 3.0 g/dL 1.5-4. 5 Not Available [facility] ([facility]) [address] [place], [address], 10/06/2023 11:11:28 10/05/19 24 10/06/2023 COMP. METAB OLIC PANEL (14) A/G ratio 1.4 1.2-2. 2 Not Available [facility] ([facility]) [address] [facility], [place], [address], 10/06/2023 11:11:28 10/05/19 24 10/06/2023 COMP. METAB OLIC PANEL (14) bilirubin, total <0.2 mg/dL 0.0-1. 2 Not Available [facility] ([facility]) [address] [facility] [place], [address], 10/06/2023 11:11:28 10/05/19 24 10/06/2023 COMP. METAB OLIC PANEL (14) alkaline phosphatase 86 IU/L 44-121 Not Available [facility] ([facility]) [address] [facility] [place], [address], 10/06/2023 11:11:28 10/05/19 24 10/06/2023 COMP. METAB OLIC PANEL (14) AST (SGOT) 17 IU/L 0-40 Not Available [facility] ([facility]) [address] [facility] [place], [address], 10/06/2023 11:11:28 10/05/19 24 10/06/2023 COMP. METAB OLIC PANEL (14) ALT (SGPT) 27 IU/L 0-32 Not Available [facility] ([facility]) [address] [facility] [place], [address], 10/06/2023 11:11:28 10/05/19 24 10/06/2023 LIPID PANEL cholesterol, total 236 mg/dL 100-19 9 above high normal Not Available [facility] ([facility]) [address] [facility], [address], 10/06/2023 11:11:30 10/05/19 24 10/06/2023 LIPID PANEL triglyceride s 958 mg/dL 0-149 alert high Resul ts confi rmed on dilut ion. Not Available [facility] ([facility]) [address] [facility], [place], [address], 10/06/2023 11:11:30 10/05/19 24 10/06/2023 LIPID PANEL HDL cholesterol 24 mg/dL >39 below low normal Not Available [facility] ([facility]) [address] [facility], [place], [address], 10/06/2023 11:11:30 10/05/19 24 10/06/2023 LIPID PANEL VLDL cholesterol anil COMMEN T mg/dL 5-40 abnormal The calcu latio n for the VLDL joslyn stero l is not valid when trigl yceri de level is >800 mg/dL . Not Available [facility] ([facility]) [address] [facility], [place], [address], 10/06/2023 11:11:30 10/05/19 24 10/06/2023 LIPID PANEL LDL chol calc ([facility]) COMMEN T mg/dL 0-99 abnormal Trigl yceri de resul t indic ated is too high for an accur ate LDL joslyn stero l estim ation . Not Available [facility] ([facility]) [address] [facility], [place], [address], 10/06/2023 11:11:30 10/05/19 24 10/06/2023 LIPID PANEL comment: ASSISTANT EDUCATION DIRECTOR Not Available [facility] ([facility]) [address] [facility], [place], [address], 10/06/2023 11:11:30 10/05/19 24 10/06/2023 VITAM IN B12 AND FOLAT E vitamin B12 883 pg/mL 232-12 45 Not Available [facility] ([facility]) [address] [facility], [place], [address], 10/06/2023 11:11:31 10/05/19 24 10/06/2023 VITAM IN B12 AND FOLAT E folate (folic acid), serum 5.9 NG/mL >3.0 A serum folat e [place] ntrat ion of less than 3.1 ng/mL is consi dered to repre sent clini anil defic iency . Not Available [facility] ([facility]) [address] [facility], [place], [address], 10/06/2023 11:11:31 10/05/19 24 10/06/2023 VITAM IN D, 25-HY DROXY vitamin D, 25-hydroxy 16.3 NG/mL 30.0-1 00.0 below low normal Pleas e Note: Speci men is lipem ic. Vitam in D defic iency has been defin ed by the Insti tute of Medic ine and an Endoc rine Socie ty pract ice guide line as a level of serum 25-OH vitam in D less than 20 ng/mL (1,2) . The Endoc rine Socie ty went on to furth er defin e vitam in D insuf ficie ncy as a level betwe en 21 and 29 ng/mL (2). 1. IOM (Inst itute of Medic ine). 2009. Dieta ry refer ence intak es for calci um and D. Bob spencer [place]: [facility] Press . 2. Guanakito prabhakar MF, Binfabi ey [place], Luis Eduardo off-F errar i BERMUDEZ, et al. Evalu ation , treat ment, and preve ntion of vitam in D defic iency : an Endoc rine Socie ty clini anil pract ice guide line. JCEM. 2010; 96(7) :1911 -30. Not Available [facility] ([facility]) [address] [facility], [place], [address], 10/06/2023 11:11:32 10/05/19 24 10/06/2023 MAGNE SIUM magnesium 2.0 mg/dL 1.6-2. 3 Not Available [facility] ([facility]) [address] [facility] [place], [address], 10/06/2023 11:11:33 10/05/19 24 10/05/2023 urina lysis , dipst ick Leukocytes (reference range) negati ve Not Available [facility] [place] [address], [place], [address], 10/05/2023 13:37:14 10/05/19 24 10/05/2023 urina lysis , dipst ick Nitrite (reference range:) negati ve Not Available [facility] [place] [address] [facility] [address], [place], [address], 10/05/2023 13:37:14 10/05/19 24 10/05/2023 urina lysis , dipst ick Urobilinogen (reference range) 0.2 Not Available [facility] [address], [place], [address], 10/05/2023 13:37:14 10/05/19 24 10/05/2023 urina lysis , dipst ick Protein (reference range) negati ve Not Available [facility] [place] [address] [facility] [address], [place], [address], 10/05/2023 13:37:14 10/05/19 24 10/05/2023 urina lysis , dipst ick pH (reference range 5-8.5) 6.0 Not Available [facility] [place], [place], [address], 10/05/2023 13:37:14 10/05/19 24 10/05/2023 urina lysis , dipst ick Blood (reference range:) negati ve Not Available [facility] [address] [facility] [address], [place], [address], 10/05/2023 13:37:14 10/05/19 24 10/05/2023 urina lysis , dipst ick Specific [place] (reference range) 1.030 Not Available [facility] [place] [address], [place], [address], 10/05/2023 13:37:14 10/05/19 24 10/05/2023 urina lysis , dipst ick Ketone (reference range) negati ve Not Available [facility] [place] [address], [place], [address], 10/05/2023 13:37:14 10/05/19 24 10/05/2023 urina lysis , dipst ick Bilirubin (reference range) negati ve Not Available [facility] [place] [address], [place], [address], 10/05/2023 13:37:14 10/05/19 24 10/05/2023 urina lysis , dipst ick Glucose (reference range) negati ve Not Available [facility] [place] [address], [place], [address], 10/05/2023 13:37:14 10/05/19 24 10/05/2023 urina lysis , dipst ick Color (reference range: yellow-brown ) Dark Yellow Not Available [facility] [place] [address], [place], [address], 10/05/2023 13:37:14 10/05/19 24 10/05/2023 HbA1c (hemo globi n A1c), blood HbA1c 5.7 Not Available [facility] [place] [address], [place], [address], 10/05/2023 13:25:33 01/07/20 24 2024 COMP. METAB OLIC PANEL (14) glucose 84 mg/dL 70-99 normal Not Available [facility] ([facility]) [address] [place], [address], 2024 05:36:45 01/07/20 24 2024 COMP. METAB OLIC PANEL (14) BUN 10 mg/dL 6-20 normal Not Available [facility] ([facility]) [address] [place], [address], 2024 05:36:45 01/07/20 24 2024 COMP. METAB OLIC PANEL (14) creatinine 0.80 mg/dL 0.57-1 .00 normal Not Available [facility] ([facility]) [address] [place], [address], 2024 05:36:45 01/07/20 24 2024 COMP. METAB OLIC PANEL (14) eGFR 103 mL/mi n/1.7 3 >59 normal Not Available [facility] ([facility]) [address] [place], [address], 2024 05:36:45 01/07/20 24 2024 COMP. METAB OLIC PANEL (14) BUN/creatini ne ratio 13 9-23 normal Not Available [facility] ([facility]) [address] [place], [address], 2024 05:36:45 01/07/20 24 2024 COMP. METAB OLIC PANEL (14) sodium 141 mmol/ L 134-14 4 normal Not Available [facility] ([facility]) [address] [place], [address], 2024 05:36:45 01/07/20 24 2024 COMP. METAB OLIC PANEL (14) potassium 4.5 mmol/ L 3.5-5. 2 normal Not Available [facility] ([facility]) [address] [place], [address], 2024 05:36:45 01/07/20 24 2024 COMP. METAB OLIC PANEL (14) chloride 104 mmol/ L 96-106 normal Not Available [facility] ([facility]) [address] [place], [address], 2024 05:36:45 01/07/20 24 2024 COMP. METAB OLIC PANEL (14) carbon dioxide, total 21 mmol/ L 20-29 normal Not Available [facility] ([facility]) [address] [place], [address], 2024 05:36:45 01/07/20 24 2024 COMP. METAB OLIC PANEL (14) calcium 9.5 mg/dL 8.7-10 .2 normal Not Available [facility] ([facility]) [address] [place], [address], 2024 05:36:45 01/07/20 24 2024 COMP. METAB OLIC PANEL (14) protein, total 7.0 g/dL 6.0-8. 5 normal Not Available [facility] ([facility]) [address] [facility] [place], [address], 2024 05:36:45 01/07/20 24 2024 COMP. METAB OLIC PANEL (14) albumin 4.1 g/dL 4.0-5. 0 normal Not Available [facility] ([facility]) [address] [facility] [place], [address], 2024 05:36:45 01/07/20 24 2024 COMP. METAB OLIC PANEL (14) globulin, total 2.9 g/dL 1.5-4. 5 Not Available [facility] ([facility]) [address] [place], [address], 2024 05:36:45 01/07/20 24 2024 COMP. METAB OLIC PANEL (14) bilirubin, total <0.2 mg/dL 0.0-1. 2 Not Available [facility] ([facility]) [address] [place], [address], 2024 05:36:45 01/07/20 24 2024 COMP. METAB OLIC PANEL (14) alkaline phosphatase 91 IU/L 44-121 normal Not Available [facility] ([facility]) [address] [place], [address], 2024 05:36:45 01/07/20 24 2024 COMP. METAB OLIC PANEL (14) AST (SGOT) 16 IU/L 0-40 normal Not Available [facility] ([facility]) [address] [place], [address], 2024 05:36:45 01/07/20 24 2024 COMP. METAB OLIC PANEL (14) ALT (SGPT) 14 IU/L 0-32 normal Not Available [facility] ([facility]) [address] [facility] [place], [address], 2024 05:36:45 01/07/20 24 2024 LIPID PANEL cholesterol, total 188 mg/dL 100-19 9 normal Not Available [facility] ([facility]) [address] [facility] [place], [address], 2024 05:36:46 01/07/20 24 2024 LIPID PANEL triglyceride s 565 mg/dL 0-149 alert high Not Available [facility] ([facility]) [address] [facility] [place], [address], 2024 05:36:46 01/07/20 24 2024 LIPID PANEL HDL cholesterol 27 mg/dL >39 below low normal Not Available [facility] ([facility]) [address] [facility], [place], [address], 2024 05:36:46 01/07/20 24 2024 LIPID PANEL VLDL cholesterol anil 89 mg/dL 5-40 above high normal Not Available [facility] ([facility]) [address] [facility], [place], [address], 2024 05:36:46 01/07/20 24 2024 LIPID PANEL LDL chol calc ([facility]) 72 mg/dL 0-99 Not Available [facility] ([facility]) [address] [facility], [place], [address], 2024 05:36:46 01/07/20 24 2024 LIPID PANEL LDL calc comment: ASSISTANT EDUCATION DIRECTOR Not Available [facility] ([facility]) [address] [facility], [place], [address], 2024 05:36:46 04/23/20 24 04/23/2024 rsv (resp irato ry syncy tial virus ), rapid , nasop haryn geal Results negati ve Not Available [facility] [address] [facility] [address], [place], [address], 04/23/2024 14:23:38 04/23/20 24 04/23/2024 rapid strep group A, throa t Strep negati ve Not Available [facility] [address] [facility] [address], [place], [address], 04/23/2024 13:53:07 04/23/20 24 04/23/2024 influ avani virus A + B + SARS- CoV-2 (COVI D19) Ag panel , rapid IA, upper respi rator y speci men FLU A negati ve Not Available [facility] [address] [facility] [address], [place], [address], 04/23/2024 13:52:33 04/23/20 24 04/23/2024 influ avani virus A + B + SARS- CoV-2 (COVI D19) Ag panel , rapid IA, upper respi rator y speci men FLU B negati ve Not Available [facility] [address], [place], [address], 04/23/2024 13:52:33 04/23/20 24 04/23/2024 influ avani virus A + B + SARS- CoV-2 (COVI D19) Ag panel , rapid IA, upper respi rator y speci men SARS COV + SARS OV 2 negati ve Not Available [facility] [address], [place], [address], 04/23/2024 13:52:33 Result Notes None recorded. Problems Name Problem SNOMED Code Status Onset Date Resolution Date Notes Provider Name and Address Organization Details Recorded Time Vitamin D deficiency 42928998 Active 2023 JAUN Gordillo [facility] [place] 4 16:57:15 Hypercholeste rolemia 11987599 Active 2023 JAUN Gordillo [facility] [place] 4 16:57:48 Morbid obesity 199094812 Active 2023 Cm Hamilton DNP, ASSOCIATE PROFESSOR PHYSICIAN, ASSISTANT EDUCATION DIRECTOR-C [address], [place], [address] , [facility] Hans JARAMILLO [facility] [place] 4 08:18:27 Disorder of function of stomach 355115339 Active 2023 Cm Hamilton DNP, JANES, ASSISTANT EDUCATION DIRECTOR-C [address], [place], [address] , [facility] [place] 08:18:34 Problem Notes None recorded. Procedures Surgical History Date Name Laterality Status Provider Name and Address Organization Details Recorded Time 06/25/19 24 Cerumen Removal completed Goirgi Loyola MD [address] [facility], [place], [address], [facility] [place] 06/25/2023 12:50:20 12/14/19 22 delivery completed Brook Retana [place] - [facility] [place] 06/25/2023 11:08:14 07/29/19 16 Cholecystectomy completed Brianna Clayon [place] - [facility] [place] 01/24/2023 13:04:31 05/21/19 13 laparotomy completed Brianna Murillo [place] - [facility] [place] 01/24/2023 12:56:52 Appendectomy completed Caryn Shahid [facility] [place] 03/17/2023 11:51:13 Imaging Results None recorded. Procedure Notes None recorded. Medical Equipment None Reported. Allergies No known drug allergies Medications Name Sig Start Date Stop Date Status Note LastModified by Organization Details LastModified Time amoxicillin 500 mg capsule TAKE 1 CAPSULE BY MOUTH THREE TIMES DAILY FOR 10 DAYS active Not Available Not Available No t Available atorvastati n 20 mg tablet Take 1 tablet every day by oral route at bedtime. active Not Available Not Available No t Available naproxen 375 mg tablet 06/25 completed Not Available Not Available Not Available cetirizine 10 mg tablet TAKE ONE TABLET BY MOUTH ONCE DAILY 01/21 completed Not Available Not Available Not Available azithromyci n 250 mg tablet 01/21 completed Not Available Not Available Not Available ibuprofen 800 mg tablet Take 1 tablet 3 times a day by oral route as needed, for body aches. active Not Available Not Available No t Available ketotifen 0.025 % (0.035 %) eye drops INSTILL 1 DROP IN BOTH EYES TWICE DAILY NEEDED 06/25 completed Not Available Not Available Not Available hydrocodone 5 mg-acetamin ophen 325 mg tablet TAKE 1 TABLET BY MOUTH EVERY 6 HOURS active Not Available Not Available No t Available meloxicam 15 mg tablet Take 1 tablet every day by oral route with meal(s), for back pain. active Not Available Not Available No t Available amoxicillin 875 mg tablet 06/25 completed Not Available Not Available Not Available methocarbam ol 750 mg tablet TAKE 1 TABLET BY MOUTH EVERY 8 HOURS NEEDED FPR MUSCLE SPASM 01/21 completed Not Available Not Available Not Available benzonatate 100 mg capsule 06/25 completed Not Available Not Available Not Available oseltamivir 75 mg capsule active Not Available Not Available Not Available dexamethaso ne 4 mg tablet active Not Available Not Available Not Available lidocaine 5 % topical patch 2 PATCH TOPICALLY DAILY LEAVE ON MOST PAINFUL AREA FOR UP TO 12 HRS 06/25 completed Not Available Not Available Not Available montelukast 10 mg tablet TAKE 1 TABLET BY MOUTH EVERY DAY 01/21 completed Not Available Not Available Not Available Levsin/SL 0.[address] 1 tablet 4 times a day by sublingua l route as needed, for abdominal pain. 2023 active Not Available Not Available Not Avai lable azelastine 137 mcg (0.1 %) nasal spray USE 2 SPRAYS IN EACH NOSTRIL TWICE DAILY NEEDED 01/21 completed Not Available Not Available Not Available epinephrine 0.3 mg/0.3 mL injection, auto-inject or INJECT 1 PEN IN THE MUSCLE ONE TIME DIRECTED FOR ALLERGIC REACTION. CALL 911 AFTER USE active Not Available Not Available No t Available ibuprofen 600 mg tablet active Not Available Not Available Not Available oxycodone-a cetaminophe n 7.5 mg-325 mg tablet TAKE 1 TABLET ORAL ROUTE EVERY 6 HOURS NEEDED 06/25 completed Not Available Not Available Not Available methylpredn isolone 4 mg tablets in a dose pack 06/25 completed Not Available Not Available Not Available bromphenira mine-pseudo ephedrine-D M 2 mg-30 mg-10 mg/5 mL oral syrup Take 10 mL every 4 hours by oral route as needed, for Cough and congestio n. active Not Available Not Available No t Available ondansetron 4 mg disintegrat ing tablet take one tablet by mouth as needed for nausea active Not Available Not Available No t Available fluticasone propionate 50 mcg/actuati on nasal spray,suspe nsion SHAKE LIQUID AND USE 2 SPRAYS IN EACH NOSTRIL EVERY DAY 01/21 completed Not Available Not Available Not Available cholecalcif isabelle (vitamin D3) 125 mcg (5,000 unit) capsule TAKE 1 CAPSULE BY MOUTH EVERY DAILY 01/21 completed Not Available Not Available Not Available naproxen 500 mg tablet TAKE 1 TABLET BY MOUTH TWICE DAILY FOR 15 DAYS NEEDED active Not Available Not Available No t Available escitalopra m 10 mg tablet TAKE 1 TABLET BY MOUTH EVERY DAY DIRECTED 03/29 completed Not Available Not Available Not Available escitalopra m 20 mg tablet Take 1 tablet every day by oral route as directed for 90 days. active Not Available Not Available No t Available cyclobenzap rine 5 mg tablet TAKE 1 TABLET BY MOUTH THREE TIMES DAILY FOR 5 DAYS NEEDED active Not Available Not Available No t Available bupropion HCl XL 300 mg 24 hr tablet, extended release Take 1 tablet every day by oral route as directed, for anxiety/d epression . active Not Available Not Available No t Available bupropion HCl XL 150 mg 24 hr tablet, extended release Take 1 tablet every day by oral route. 01/21 completed Not Available Not Available Not Available Flovent HFA 110 mcg/actuati on aerosol inhaler INHALE 1 PUFF BY MOUTH TWICE DAILY 01/21 completed Not Available Not Available Not Available ProAir HFA 90 mcg/actuati on aerosol inhaler INHALE 2 PUFFS BY MOUTH EVERY 4 TO 6 HOURS NEEDED 01/21 completed Not Available Not Available Not Available cholecalcif isabelle (vitamin D3) 1,250 mcg (50,000 unit) capsule Take 1 capsule every week by oral route, for Vitamin D Deficienc y. active Not Available Not Available No t Available guaifenesin ER 1,200 mg tablet, extended release 12 hr Take 1 tablet twice a day by oral route as needed, for congestio n. 2023 active Not Available Not Available Not Avai lable omega 3-dha-epa-f maryana oil 1,000 mg (120 mg-180 mg) capsule Take 2 capsules every day by oral route as directed, for high tryglycer ides/low HDL. active Not Available Not Available No t Available Mucus Relief ER 600 mg tablet, extended release active Not Available Not Available Not Available 28 mg iron-800 mcg tablet TAKE 1 TABLET BY MOUTH EVERY DAY 01/09 completed Not Available Not Available Not Available Dora 0.25 mg-0.035 mg tablet TAKE 1 TABLET BY MOUTH DAILY 01/21 completed Not Available Not Available Not Available Wegovy 0.25 mg/0.5 mL subcutaneou s pen injector Inject by subcutane ous route for 28 days. 01/21 completed Not Available Not Available Not Available Vitals Date Recorded Body height Body mass index (BMI) Body weight Body temperature Oxygen saturation Oxygen saturation in Arterial blood by Pulse oximetry Heart rate Systolic blood pressure Diastolic blood pressure Provider Name and Address Organization Details Last Updated DateTime 4 172.72 cm 51.6 kg/m2 006189. 21 g 98.5 [degF] 98 % 98 % 90 /min 132 mm[Hg] 63 mm[Hg] Brook ZAMORANO [facility] 4 13:23:52 Date Recorded Body height Body mass index (BMI) Body weight Body temperature Oxygen saturation Oxygen saturation in Arterial blood by Pulse oximetry Heart rate Systolic blood pressure Diastolic blood pressure Provider Name and Address Organization Details Last Updated DateTime 4 172.72 cm 51 kg/m2 667273. 24 g 98.7 [degF] 96 % 96 % 76 /min 128 mm[Hg] 73 mm[Hg] Brook ZAMORANO [facility] 4 13:47:43 Date Recorded Body height Body mass index (BMI) Body weight Body temperature Oxygen saturation Oxygen saturation in Arterial blood by Pulse oximetry Heart rate Systolic blood pressure Diastolic blood pressure Provider Name and Address Organization Details Last Updated DateTime 4 172.72 cm 51.3 kg/m2 625099. 73 g 98.9 [degF] 99 % 99 % 89 /min 106 mm[Hg] 78 mm[Hg] Brook ZAMORANO [facility] [place] 4 13:51:49 Date Recorded Body height Body mass index (BMI) Body weight Body temperature Oxygen saturation Oxygen saturation in Arterial blood by Pulse oximetry Heart rate Systolic blood pressure Diastolic blood pressure Provider Name and Address Organization Details Last Updated DateTime 4 172.72 cm 51 kg/m2 382998. 54 g 98.6 [degF] 99 % 99 % 74 /min 144 mm[Hg] 80 mm[Hg] Brook Retana [facility] [place] 4 15:52:08 Date Recorded Body height Body mass index (BMI) Body weight Body temperature Oxygen saturation Oxygen saturation in Arterial blood by Pulse oximetry Heart rate Systolic blood pressure Diastolic blood pressure Provider Name and Address Organization Details Last Updated DateTime 4 172.72 cm 53 kg/m2 975771. 3 g 97.8 [degF] 99 % 99 % 102 /min 134 mm[Hg] 90 mm[Hg] María Ulrich [facility] [place] 4 13:36:53 Social History Question Answer Notes LastModified by Organizat ion Details LastModified Time Tobacco Smoking Status Current Every Day Smoker Brook Retana [facility], [facility] [place] 06/25/2023 11:09:04 What Is Your Level Of Alcohol Consumption? None [email or web address] Information not available 06/25/2023 If You Are , What Was Your Level Of Alcohol Consumption Prior To ? None [email or web address] Information not available 01/07/2024 What Is Your Level Of Caffeine Consumption? Heavy [email or web address] Information not available 06/25/2023 What Is Your Current Pack Years? 10-19packyea rs [email or web address] Information not available 01/07/2024 How Much Tobacco Do You Smoke? 0.5 PPD [email or web address] Information not available 06/25/2023 Has Tobacco Cessation Counseling Been Provided? No [email or web address] Information not available 01/07/2024 Do You Or Have You Ever Used Any Other Forms Of Tobacco Or Nicotine? No [email or web address] Information not available 01/07/2024 Sex: Unknown Functional Status None recorded. Mental Status None recorded. Family History Relationship Description Onset Age of this Age Resolved Age Notes LastModified by Organization Details LastModified Time Father Seizure disorder [email or web address] Not available 12/19 11:45:36 Father Migraine [email or web address] Not availa ble 01/01/2023 11:45:41 Paternal Grandmother Cerebrovascu lar accident ischem ic stroke [email or web address] Not available 03/17/2023 11:51:46 Unspecified Relation Diabetes mellitus [email or web address] Not available 2023 10:11:02 Notes:4 brothers, Medical History Condition Response Other Y Depression Y Anxiety Disorder Y Obesity Y Arthritis Y High Cholesterol Y Headaches Y Allergies/Hayfever Y Skin Problems Y Gynecological HistoryNo gynecological history recorded. Obstetrics History GPAL:G 0 P 0 0 0 0 Immunizations Vaccine Type Date Status Note Provider Nam e and Address Organization Details Recorded Time Influenza, live, trivalent, intranasal 8 completed Brianna Chidi null, [place] - [facility] [place] [facility] [place] 01/24/2023 12:56:15 Influenza, live, trivalent, intranasal 0 completed Brianna Chidi [place], [place] [facility] [place] [facility] [place] 01/24/2023 12:56:15 Influenza, live, trivalent, intranasal 2 completed Brianna Chidi [place], [place] [facility] [place] [facility] [place] 01/24/2023 12:56:15 COVID-19, mRNA, LNP-S, PF, 100 mcg/0.5mL dose or 50 mcg/0.25mL dose 1 completed Brianna Chidi null, [place] [facility] [place] [facility] [place] 01/24/2023 12:56:15 COVID-19, mRNA, LNP-S, PF, 100 mcg/0.5mL dose or 50 mcg/0.25mL dose 1 completed Brianna Chidi [place], [place] - [facility] [place] [facility] [place] 01/24/2023 12:56:15 Tdap 7 completed Brianna Chidi [place] [facility] [place] [facility] [place] 01/24/2023 12:56:15 Influenza, split virus, trivalent, preservative 7 completed Brianna Chidi [place] [facility] [place] [facility] [place] 01/24/2023 12:56:15 Influenza, split virus, trivalent, preservative 9 completed Brianna Chidi [place] [facility] [place] [facility] [place] 01/24/2023 12:56:15 Influenza, split virus, trivalent, PF 11/15/201 1 completed Brianna Chidi [place] [facility] [place] [facility] [place] 01/24/2023 12:56:15 HPV, quadrivalent 7 completed Brianna Chidi [place] [facility] [place] [facility] [place] 01/24/2023 12:56:15 HPV, quadrivalent 7 completed Brianna Chidi [place] [facility] [place] [facility] [place] 01/24/2023 12:56:15 HPV, quadrivalent 7 completed Brianna Chidi [place] [facility] [place] [facility] [place] 01/24/2023 12:56:15 Hep A, ped/adol, 2 dose 7 completed Brianna Chidi [place] [facility] [place] [facility] [place] 01/24/2023 12:56:15 meningococcal MCV4, unspecified formulation 7 completed Brianna Chidi [place] [facility] [place] [facility] [place] 01/24/2023 12:56:15 Past Encounters Encounter ID Performer Location Encounter Start Date Encounter Closed Date Diagnosis/Indication Diagnosis SNOMED-CT Code Diagnosis ICD10 Code Diagnosis Note [id number] Marii Mcdermott [address] [place] [address] 01/09/2023 13:39:31 01/09/2023 14:41:55 Screening for malignant neoplasm of cervix 255168320 Z12.4 Establish care. Mixed anxi ety and depressive disorder 904075499 F41.8 Adult heal th examination 958499663 Z00.00 Diabetes m ellitus screening 986886341 Z13.1 Thyroid di sorder screening 501927123 Z13.29 Body mass index 40+ - severely obese 050730901 Z68.42 [id number] Marii Mcdermott [address] [place] [address] 01/12/2023 10:29:33 01/12/2023 11:27:08 [id number] Marii Mcdermott [address] [place] [address] 02/15/2023 16:07:35 02/15/2023 16:22:35 Mixed anxiety and depressive disorder 073051239 F41.8 Patient is tolerating the 10mg dose. She notes improvemen t but is still having some issues.Jarod alida increase dosage. Will see back in 6 weeks. Hypercholesterolemia 136 00536 E78.00 We will follow up in 6 weeks to recheck levels.Sta rt medication as directed. Morbid obesity 006359316 E66.01 [id number] Marii CowanJeanie in, ASSOCIATE PROFESSOR PHYSICIAN [facility] [address] [place] [address] [address] [place] [address] 03/29/2023 13:02:07 03/29/2023 13:31:29 Mixed anxiety and depressive disorder 645661833 F41.8 Tolerating the current dose.Will continue regimen. See back in 3 months. Hyperlipidemia 89614938 E78.5 Will recheck lab work. Will call with results. [id number] Giorgi Loyola MD [place] [id number] [facility] [address] [place] [address] 06/25/2023 10:47:29 06/25/2023 12:13:00 Hypercholesterolemia 23921290 E78.00 Cont atorvastat in 20. Would repeat labs in 3 months Mixed anxi ety and depressive disorder 364947670 F41.8 Cont escitalopr am 20 mg but add bupropion XL 150 mg and F/U in 1 month. Recommend schedule an appt with [facility] to be evaluated as couseling/ therapy might be beneficial . Additional ly, she claims to have a prior DX of ADHD but this is remote. She would need repeat testing at this point which could also be done at [facility] Impacted c erumen in left ear 7719353658 626448 H61.22 extracted today with combo of manual cerumen loop and irrigation Allergic rhinitis 737275 04 J30.9 Sees facility attendant in [place]. If she can get her records so we can see what she is being treated for we can likely take over prescribin g meds if she would like [id number] Giorgi Loyola MD [facility] [address] [place] [address] 10/05/2023 13:06:31 10/05/2023 14:20:32 Hypercholesterolemia 74403347 E78.00 Cont atorvastat in 20. Would repeat labs in 3 months Diabetes m ellitus screening 594313536 Z13.1 CHeck a1c Morbid obesity 170277477 E66.01 will refer to bariatric Low back pain 949081948 M54.50 Get records from [facility] ER Mixed anxi ety and depressive disorder 469666452 F41.8 will need to restart bupropion and escitalopr am [id number] Giorgi Loyola MD [facility] [address] [facility] [place] [address] 01/07/2024 13:39:09 01/07/2024 14:09:12 Hypercholesterolemia 73967754 E78.00 Currently on atorvastat in 20 mg daily. Check lipid profile. Mixed anxi ety and depressive disorder 297483438 F41.8 Will need to cont escitalopr am 20 mg daily but increase bupropion to the XL 300 mg daily see back in a month Body mass index 40+ - severely obese 228554175 Z68.43 I suggested she reconsider and contact the bariatric institute for an in-person discussion and evaluation [id number] Giorgi Loyola MD [facility] [address] [facility] [address] 01/22/2024 13:40:34 01/22/2024 14:24:23 Mixed hyperlipidemia 980018922 E78.2 continue atorvastat in 20 but add omega-3 fish oil 2000 mg to her daily regimen follow up in 3 months [id number] Giorgi Loyola MD [facility] [address] [facility] [address] 02/11/2024 15:21:33 02/11/2024 16:33:30 Abdominal pain 10775715 R10.9 It sounds as though she has already had a CT from the emergency room which was unremarkab le. Has already had a cholecyste ctomy and appendecto my. Will try Levsin to see if that relieves her abdominal pain. We will request records from [facility] to review Non-alcoho lic fatty liver disease 6487688862 K76.0 Patient encouraged to reconsider bariatric referral. [id number] Giorgi Loyola MD [facility] zofia [facility] [address] [place] [address] 04/23/2024 13:22:38 04/23/2024 14:38:39 Nasal congestion 67390694 R09.81 Swabs were all NEG. Will treat symptomati grecia Sore throat 144265194 J0 2.9 swabs negative. Treat symptomati grecia Vitamin D deficiency 347 32644 E55.9 refill vitamin-D and check vitamin-D level in 8 weeks Health Concerns Section Related Observation LastModified by Organization Detai ls LastModified Time None Recorded Concern Status LastModified by Organization Details LastModified Time None Recorded Advance Directives Directive None Recorded Payers Encounter Date Sequence Insurance Name Policy Number Policy Foreman Covered Member ID Foreman Member ID Guarantor Name 10/05/2023 1 [employer] [place] Ceci M Vazquez [id number] Ceci M Vazquez 01/07/2024 1 [employer] [place] Ceci M Vazquez [id number] Ceci M Vazquez 01/22/2024 1 [employer] [place] Ceci M Vazquez [id number] Ceci M Vazquez 02/11/2024 1 [employer] [place] Ceci M Vazquez [id number] Ceci M Vazquez 04/23/2024 1 [employer] [place] Ceci M Vazquez [id number] Ceci M Vazquez Notes Date Note Type Note Provider Name and Address Organization Details Recorded Time 10/05/2023 text/html Pt presents for F/U after not being seen since Jun. She Has run out of her escitalopram and bupropion. She is complaining today of back pain which she says has been present for several months. Apparently she went to the ER for evaluation where she was given Naprosyn but states that upsets her stomach. Giorgi Loyola MD [address], [place], [address], [facility] [place] [facility] [place] 10/05/2023 18:31:25 01/07/2024 text/html Pt presents for F/U on cholesterol. Has been taking atorvastatin 20 mg daily. Last FLP from 10/11 showed extremely high TG's and low HDL. Pt states her GM 4 days ago and feels like she needs to have her depression med upped . Apparently the bariatric center did call and speak with her but patient states she did not follow-up with them and she got nervous and scared about the thought of surgery. Giorgi Loyola MD [address], [place], [address], [facility] [place] 01/07/2024 22:15:49 01/22/2024 text/html Pt presents for F/U on recent lipid profile joint triglycerides elevated 565 with a low HDL of 27. Her triglycerides have been 958 back in September. She is only on atorvastatin 20 mg daily at present Giorgi Loyola MD [address], [place], [address], [facility] [place] 01/22/2024 22:46:38 02/11/2024 text/html 29 yo [place] present s for an ER visit follow-up. Patient reports being in the [place] [facility] 4 days ago for several hours. Patient reports sharp pain that went across her lower abdomen beginning on her right side. She received a CT and told she had fatty liver disease and needed to follow-up with her PCP. They also reported a negative test. She was given toradol while in the hospital and told to alternate between tylenol and motrin. Patient reports not having motrin, so she has been taking tylenol 1000mg daily. Patient reports the pain becoming dull and constant and only sharp when she gets up or bends down. Dull pain is 4-5/10. Patient reports nausea since hospital visit, lack of appetite, and regular bowels. She reports more pain when lying on the right side. Patient reports grandmother (mom) had cirrhosis due to diabetes. Patient has a history of PCOS but reports this pain is unlike any cyst flare. Giorgi Loyola MD [address], [place], [address], [facility] & [place] 02/12/2024 07:15:19 04/23/2024 text/html Pt presents with congestion that started 3 days ago, followed by nasal drainage, Body aches, ST and cough, occ productive. No fever. Son has RSV. Giorgi Loyola MD [address], [place], [address], [facility] - [place] & [place] 04/23/2024 22:14:59 OBGyn Episode No OBEpisode recorded.
== END 2024-08-28 20:45 | disposition home or self-care (01) ==
PROVIDERS: Emergency Provider Emergency Medicine
DX: S81.811A Laceration without foreign body, right lower leg, initial encounter (principal); W01.10XA Fall on same level from slipping, tripping and stumbling with subsequent striking against unspecified object, initial encounter; Z23 Encounter for immunization
CPT/HCPCS: 12034; 90471; 99283; 73590; 90715

== ENCOUNTER 2024-12-30 14:31 | Outpatient (CLI) | payer MEDICAID, SELFPAY ==
--- OUTSIDE RECORDS SUMMARY | 2024-12-30 14:35 | XMS_ITS | Clinical Summary ---
Author Organization Healthcare Address [address] [place] [address] Care Team Providers Care Tankroom Worker Name Role Phone Rene Moura MD Primary Care Provider [phone] Social History Tobacco Use Types Packs/Day Years Used Date Smoking Tobacco: Every Day Alcohol Use Standard Drinks/Week Comments No 0 (1 standard drink = 0.6 oz pure alcohol) Alcoholic Drinks/day: Denies alcohol consumption Comments Unknown Sex and Gender Information Value Date Recorded Sex Assigned at Not on file Legal Sex Female 6:01 PM EDT Gender Identity Not on file Sexual Orientation Not on file Last Filed Vital Signs Vital Sign Reading Time Taken Comments Blood Pressure 135/96 10/01/2019 3:27 PM EDT Pulse 90 10/01/2019 3:27 PM EDT Temperature - - Respiratory Rate - - Oxygen Saturation - - Inhaled Oxygen Concentration - - Weight 151 kg (332 lb 0.2 oz) 10/01/2019 3:27 PM EDT Height 172.7 cm (5' 8 ) 02/08/2018 1:25 PM EDT Body Mass Index 50.48 02/08/2018 1:25 PM EDT Plan of Treatment Health Maintenance Due Date Last Done Comments [facility]-Depression Screening 1996 [facility]-/Child/Adol SDOH Screenings 1996 [facility]-Hepatitis A Vaccines (2 of 2 - 2-dose series) 04/24/2007 10/23/2006 [facility]-Varicella Vaccines (1 of 2 - 13+ 2-dose series) 01/07/2009 [facility]- SDOH Screenings 01/07/2014 [facility]-Adult SDOH Screenings 01/07/2014 [facility]-Hepatitis B Vaccines (1 of 3 - 19+ 3-dose series) 01/07/2015 [facility]-DTaP,Tdap,and Td Vaccines (2 - Td or Tdap) 10/10/2016 10/10/2006 [facility]-Pap Smear 01/07/2017 [id number] Vaccine ( season) 2024 02/11/2021, 01/14/2021 [facility]-Influenza Vaccine (#1) 01/19/202504/04, 04/20/2009, 02/26/2007 [facility]-Zoster Vaccines (1 of 2) 01/07/2046 HPV Vaccines Completed 05/10/2007, 12/28/2006, 10/23/2006 [facility]-HIB Vaccines Aged Out No longer e ligible based on patient's age to complete this topic [facility]-IPV Vaccines Aged Out No longer e ligible based on patient's age to complete this topic [facility]-Pneumococcal Vaccine: Pediatrics (0 to 5 Years) and At-Risk Patients (6 to 49 Years) Aged Out No longer eligible b ased on patient's age to complete this topic [facility]-Rotavirus Vaccines Aged Out No lo nger eligible based on patient's age to complete this topic Care Teams Tankroom Worker Relationship Specialty Start Date End Date Rene Moura MD [facility] [facility] [address] [place] [address] PCP - General 10/01/20
[2024-12-30 15:59] LABS: Thyroid Stimulating Hormone 1.13 uIU/mL (0.465-4.68)
[2024-12-30 18:16] LABS: Hemoglobin A1C 5.5 % (4.0-6.0)
[2024-12-31 11:12] LABS: FSH 5.4 mIU/mL (.); Testosterone,Total 72 ng/dL (13-71)
== END 2024-12-30 23:59 | disposition home or self-care (01) ==
LOC: LAB 14:31
PROVIDERS: PCP Family Medicine; Visit Provider Obstetrics & Gynecology
DX: E28.2 Polycystic ovarian syndrome (principal)
CPT/HCPCS: 36415; 82670; 83001; 83036; 84146; 84403; 84443

== ENCOUNTER 2025-01-05 15:01 | Outpatient (CLI) | payer MEDICAID, SELFPAY ==
--- OUTSIDE RECORDS SUMMARY | 2025-01-05 15:03 | XMS_ITS | Clinical Summary ---
Author Organization Healthcare Address [address] [place] [address] Care Team Providers Care Vessel Captain Name Role Phone Rene Moura MD Primary Care Provider Social History Tobacco Use Types Packs/Day Years [...] or Tdap) 10/10/2016 10/10/2006 [facility]-Pap Smear 01/07/2017 [id number] Vaccine ( season) 2024 02/11/2021, 01/14/2021 [facility]-Influenza [...] age to complete this topic Care Teams Vessel Captain Relationship Specialty Start Date End Date Rene Moura MD [facility] [address] [place] [address] PCP - General 10/01/20
--- NOTE | 2025-01-05 15:30 | US_ITS ---
PROCEDURE: US TRANSVAGINAL CLINICAL INDICATION: PCOS COMPARISON: CT CT ABDOMEN PELVIS W CON from 02/06/2024 FINDINGS: Transvaginal sonographic images of the pelvis were obtained. UTERUS: 8.7 cm x 5.8 cmx 4.4cm anteverted with a combined endometrial thickness of 8.7mm. There are multiple small nabothian cysts within the cervix. A scar is seen. LEFT OVARY: 2.3cmx2.9 cmx3.3cm with a volume of 11.2ml. There are multiple small peripheral follicles giving the ovary a polycystic appearance. There is a dominant follicle measuring 1.1 cm x 1.0 cm x 1.0 cm. RIGHT OVARY: 2.2cmx 2.6 cmx3.2cm with a volume of 9.5ml. There are multiple small peripheral follicles giving the ovary a polycystic appearance. Both ovaries are seen and appear polycystic. Doppler flow to both ovaries are seen. There is no fluid in the cul-de-sac. IMPRESSION: 1. Anteverted uterus normal in shape and size. The endometrium appears normal and measures 8.7 mm. 2. Both ovaries are seen and appear polycystic. The left ovary contains a dominant follicle measuring 1.1 cm. 3. No fluid in the cul-de-sac. Dictated by: Shamar Lujan MD 01/06/2025 06:44 Shamar Lujan MD in OV 01/06/2025 06:44
== END 2025-01-05 23:59 | disposition home or self-care (01) ==
LOC: RAD 15:02
PROVIDERS: PCP Family Medicine; Visit Provider Obstetrics & Gynecology
DX: E28.2 Polycystic ovarian syndrome (principal)
CPT/HCPCS: 76830

== ENCOUNTER 2025-04-10 18:10 | Emergency (ER) | payer MEDICAID, SELFPAY ==
[2025-04-10 18:15] VITALS: BP 159/107; PULSE 104; O2SAT 99
[2025-04-10 18:16] VITALS: BP 159/107; PULSE 115; RESP 18; TEMP 37.2; O2SAT 96; BMI 49.4
--- OUTSIDE RECORDS SUMMARY | 2025-04-10 18:17 | XMS_ITS | Clinical Summary ---
Author Organization Healthcare Address [address] [place] [address] Care Team Providers Care Fingerer Name Role Phone Rene Moura MD Primary Care Provider [phone] Social History Tobacco Use Types Packs/Day Years [...] Date Last Done Comments [facility]-Depression Screening 1996 [facility]-Infant/Child/Adol SDOH Screenings 1996 [facility]-Hepatitis A Vaccines (2 of 2 - 2-dose series) 04/24/2007 10/23/2006 [facility]-Varicella Vaccines (1 of 2 - 13+ 2-dose series) 01/07/2009 [facility]- SDOH Screenings 01/07/2014 [facility]-Adult SDOH Screenings 01/07/2014 [facility]-Hepatitis B Vaccines (1 of 3 - 19+ 3-dose series) 01/07/2015 [facility]-DTaP,Tdap,and Td Vaccines (2 - Td or Tdap) 10/10/2016 10/10/2006 [facility]-Pap Smear 01/07/2017 [id number] Vaccine ( season) 2025 02/11/2021, 01/14/2021 [facility]-Influenza Vaccine (#1) 01/19/202504/04, 04/20/2009, [...] age to complete this topic Care Teams Fingerer Relationship Specialty Start Date End Date Rene Moura MD [facility] [facility] [address] [place] [address] PCP - General 10/01/20
--- NOTE | 2025-04-10 18:18 | XR_ITS ---
PROCEDURE INFORMATION: Exam: XR Left Knee Exam date and time: 04/10/2025 6:22 PM Age: 30 years old Clinical indication: Injury or trauma; Fall; Blunt trauma; Knee; Left; Additional info: Fall on knee TECHNIQUE: Imaging protocol: Radiologic exam of the left knee. Views: 3 views. COMPARISON: CR XR ANKLE LT MIN 3V 08/17/2020 1:17 AM FINDINGS: Bones/joints: Normal. No fracture evident Soft tissues: Normal. IMPRESSION: No acute findings.
--- NOTE | 2025-04-10 18:19 | ED_ITS ---
<Statement entered by Cleveland Monique DO - 04/11/25 01:19> I was consulted by the ANASTASIYA, and we discussed the complexity of problems being addressed. I approved the treatment and management plan for this patient's care in the emergency department, thus performing a substantive portion of the medical decision making. Cleveland Monique DO Discharge Plan Disposition Patient Disposition: Home, Self-Care Prescriptions Prescriptions: No Action medroxyprogesterone [Provera] 10 mg tablet 10 mg PO DAILY Qty: 10 6RF medroxyprogesterone [Provera] 10 mg tablet 10 mg PO DAILY 10 Days Qty: 10 0RF atorvastatin 20 mg tablet 20 mg PO HS escitalopram oxalate 20 mg tablet 20 mg PO DAILY famotidine [Pepcid] 20 mg Tablet 20 mg PO DAILY bupropion HCl 300 mg tablet extended release 24 hr 300 mg PO DAILY Referrals Follow up/Referrals: Gonzalo Oliveira DO [Staff Physician, Orthopedics] - See instructions Giorgi Loyola MD [Primary Care Provider, Medical] - See instructions Activity Restrictions/Add. Instructions Additional Instructions/Restrictions: Today you were evaluated in the emergency department and had a negative x-ray. Please use the Jerardo wrap for 1 week, this will provide support during this initial injury phase. You may use ibuprofen [id number] as directed for pain relief. You may ice the area over the next 24 hours, 20 minutes at a time 4 times a day. Please return to the ED for worsening of condition. Clinical Impressions Clinical Impression: Acute pain of left knee Instructions Patient Instructions: DI for Knee Pain Print Language Print Language: Slovenian Discharge ED Provider: Cleveland Monique General Adult HPI General Chief complaint: Extremity Injury, Lower Stated complaint: AO 04/10 Fell has knot on left knee Time Seen by Provider: 04/10/25 18:15 Mode of Arrival: Ambulatory Source of Information: Patient Description of Symptoms (Recalled from ER Triage Doc. by RN): Patient reports slipping on the grass and falling onto her left knee. Complaint of a knot on the knee. History of Present Illness HPI narrative: patient is a 30-year-old female PMHx PCOS and obesity who presents to the ED after a fall that occurred 20 minutes prior to arrival. Patient states she fell in the wet grass, landing on her left knee. She has been ambulatory but with pain. Denies any numbness or tingling. Related Data Home Medications ?Medication ?Instructions ?Recorded ?Confirmed atorvastatin 20 mg tablet 20 mg PO HS 09/06/23 escitalopram oxalate 20 mg tablet 20 mg PO DAILY 09/0503/25/25 bupropion HCl 300 mg 24 hr tablet, 300 mg PO DAILY 03/1403/25/25 extended release famotidine 20 mg tablet (Pepcid) 20 mg PO DAILY 03/25/25 Previous Rx's ?Medication ?Instructions ?Recorded medroxyprogesterone 10 mg tablet 10 mg PO DAILY 10 day s #10 tabs 02/19/25 (Provera) medroxyprogesterone 10 mg tablet 10 mg PO DAILY #10 ta bs 03/25/25 (Provera) Allergies Allergy/AdvReac Type Severity Reaction Status Date / Time No Known Allergies Allergy Verified 03/25/25 10:34 [facility] Disclaimer: The information contained in this section may have been updated after the patient was seen, as this information can be updated by other users. Medical History (Updated 04/10/25 @ 18:52 by Steff Be APRN) Encounter for screening examination for sexually transmitted disease Anovulation Oligomenorrhea PCOS (polycystic ovarian syndrome) Depression Anxiety Hyperlipidemia delivery delivered GERD (gastroesophageal reflux disease) Surgical History (Updated 03/25/25 @ 10:43 by MONIK Jansen) History of delivery History of cholecystectomy Family History (Updated 03/25/25 @ 10:43 by MONIK Jansen) Other No significant family history Social History Smoking Status: Current every day smoker tobacco type: cigarettes packs per day: 1 alcohol intake: never substance use type: denies use current occupational status: unemployed and disabled Travel in the last 8 weeks?: None Have you lived/traveled outside US in past 30 days?: No Contact w/someone who lives/traveled outside US past 30 days?: No Exposure to someone with infectious disease in past 14 days?: No Do you have a fever (greater than 100.4 F or 38 C)?: No Have you tested positive for COVID-19?: No Exposed to someone with COVID-19 in past 14 days?: No Do you have a sore throat?: No Do you have a cough?: No Do you have any weakness?: No Do you have any diarrhea?: No Are you experiencing any unusual bleeding?: No Do you have any muscle aches/pain?: No Do you have any abdominal pain?: No Are you experiencing loss of taste or smell?: No Other Medical History Have you received the Flu Vaccine for this season: No Have you received the Pneumonia Vaccine: No ROS Obtained: Yes Systems reviewed as appropriate & no additional complaints except as documented Physical Exam General General appearance: alert Eye Eye exam: Present PERRL Neck Neck exam: Present full ROM Respiratory Respiratory exam: Present normal lung sounds bilaterally Cardiovascular Cardiovascular exam: Present regular rate Abdominal Exam Abdominal exam: Present soft Extremities Exam Extremities exam: Present other (anterior left knee tenderness, medial knee tenderness, left knee abrasion patella midline and stable) Neurological Exam Neurological exam: Present alert and oriented X3 Skin Skin exam: Present warm Medical Decision Making Medical Records Screening: Per USPSTF and CDC recommendations, given the prevalence of disease in our region, it is our hospital?s policy to screen for HIV and viral Hepatitis for all patients aged 18 and over and those with ongoing risk factors. Kumar Inquiry Pt receiving controlled substance: No Vital Signs: 04/10/25 18:15 04/10/25 18:16 04/10/25 18:31 Temperature 98.9 F Temperature Source Oral Pulse Rate 104 H 92 H Pulse Rate [Radial] 115 H Respiratory Rate 18 Blood Pressure 159/107 H 100/74 L Blood Pressure [Right Arm] 159/107 H Blood Pressure Mean [Right Arm] 124 Blood Pressure Source Blood Pressure Source [Right Arm] Automatic Cuff Blood Pressure Position Blood Pressure Position [Right Arm] Sitting 02 Sat by Pulse Oximetry 99 96 96 Oxygen Delivery Method Room Air Room Air Room Air 04/10/25 19:00 Temperature 98.9 F Temperature Source Oral Pulse Rate 92 H Pulse Rate [Radial] Respiratory Rate 18 Blood Pressure 144/82 H Blood Pressure [Right Arm] Blood Pressure Mean [Right Arm] Blood Pressure Source Automatic Cuff Blood Pressure Source [Right Arm] Blood Pressure Position Sitting Blood Pressure Position [Right Arm] 02 Sat by Pulse Oximetry Oxygen Delivery Method Room Air Orders (Tests/Meds): ED MEDICATIONS Discontinued Medications Generic Name Dose Route Start Last Admin Trade Name Freq PRN Reason Stop Dose Admin Acetaminophen 1,000 mg 04/10/25 18:18 04/10/25 18:25 Acetaminophen 500mg Tab PO 04/10/25 18:19 1,000 mg ONCE ONE Administration Ibuprofen 600 mg 04/10/25 18:48 04/10/25 18:57 Ibuprofen 600 Mg Tablet PO 04/10/25 18:49 600 mg ONCE ONE Administration ORDERS Category Date Time Status Knee XR left 3 views [XR knee LT 3V] Stat Exams 04/10/25 18:18 Completed HIV Combo Stat Lab 04/10/25 18:18 Ordered Hepatitis C Ab Qual. W/ RFX Stat Lab 04/10/25 18:18 Ordered Medical Decision Narrative: In summary, patient is a 30-year-old female PMHx PCOS and obesity who presents to the ED after a fall that occurred 20 minutes prior to arrival. Patient states she fell in the wet grass, landing on her left knee. She has been ambulatory but with pain. Denies any numbness or tingling. Denies any previous injury to the left knee. Upon initial evaluation patient is alert, oriented and cooperative. She has elevated blood pressure, otherwise stable. Physical exam is remarkable for obesity, anterior and medial left knee tenderness. Patella midline and stable. Denies fever, chills, body aches, decreased ROM. Differential diagnosis includes sprain, patellar fracture, ligamentous injury, tibial plateau fracture, among others. Discussed with patient we will obtain x-ray, she is ambulatory in the ED. Patient will be symptomatically managed with Tylenol Motrin. Imaging obtained. No obvious fracture noted. Will apply Jerardo wrap and discussed management with patient including NSAIDs and ice. Patient will be referred to Dr. Oliveira in the event of no improvement. We discussed return precautions to the ED and patient verbalized understanding. Critical Care Critical Care Time Critical Care Time: No
--- NOTE | 2025-04-10 18:22 | PC.NURSE ---
XRAY AT BEDSIDE
[2025-04-10] MEDS: ACETAMINOPHEN 500MG TAB 1000 MG PO (18:25)
[2025-04-10 18:31] VITALS: BP 100/74; PULSE 92; O2SAT 96
[2025-04-10] MEDS: IBUPROFEN 600 MG TABLET PO (18:57)
[2025-04-10 19:00] VITALS: BP 144/82; PULSE 92; RESP 18; TEMP 37.2; O2SAT 96
== END 2025-04-10 19:02 | disposition home or self-care (01) ==
PROVIDERS: Emergency Provider Student in an Organized Health Care Education/Training Program; PCP Family Medicine
DX: M25.562 Pain in left knee (principal); W01.10XA Fall on same level from slipping, tripping and stumbling with subsequent striking against unspecified object, initial encounter
CPT/HCPCS: 73562; 99283; 99284